=== PATIENT | male | born 1960 | race African-American/Black ===

== ENCOUNTER 2016-12-22 23:32 | Inpatient (IN) | payer MEDICAID ==
[~2016-12-22] VITALS: Ht 165.1 cm; Wt 84.4 kg
[2016-12-22] MEDS ORDERED: Albuterol ud Inhalation ONE (23:55)
[2016-12-22] MEDS ORDERED: Ipratropium 0.02% Inh Soln 2.5ml UD ONE (23:55)
[2016-12-23] VITALS (8 sets, daily range): BP systolic 121–159; BP diastolic 76–94
[2016-12-23] MEDS ORDERED: Ipratropium 0.02% Inh Soln 2.5ml UD HHN ONE
[2016-12-23 00:11] LABS: MEAN CORPUSCULAR HEMOGLOBIN 31.5 PG (27.0-31.0); MEAN CORPUSCULAR HGB CONC 33.7 G/DL (32.0-36.0); MEAN CORPUSCULAR VOLUME 94 FL (80-99); MEAN PLATELET VOLUME 7.1 FL (6.5-10.1); PLATELET COUNT 198 K/UL (150-450); RED BLOOD COUNT 4.53 M/UL (4.70-6.10); RED CELL DISTRIBUTION WIDTH 11.4 % (11.6-14.8); WHITE BLOOD COUNT 19.4 K/UL (4.8-10.8)
[2016-12-23] MEDS: Nitroglycerin Subl 0.4mg tab (Bottle Of 25) SL PRN ×2 (00:11→00:13)
[2016-12-23 00:22] LABS: PROTHROMBIN TIME 10.2 SEC (9.30-11.50)
[2016-12-23 00:27] LABS: TROPONIN I < 0.30 ng/mL (<=0.30)
[2016-12-23 00:28] LABS: ALANINE AMINOTRANSFERASE 28 U/L (3-41); ALBUMIN/GLOBULIN RATIO 1.3 (1.0-2.7); ANION GAP 15 (5-15); ASPARTATE AMINO TRANSFERASE 52 U/L (5-40); CALCIUM 8.6 mg/dL (8.6-10.2); CARBON DIOXIDE 28 mEQ/L (20-30); CHLORIDE 103 mEQ/L (98-107); CREATININE 0.8 mg/dL (0.7-1.2); GLOMERULAR FILTRATION RATE > 60 mL/min (>60); HEMOLYSIS 6; POTASSIUM 3.8 mEQ/L (3.4-4.9); SODIUM 146 mEQ/L (135-145); TOTAL PROTEIN 7.9 g/dL (6.6-8.7)
[2016-12-23 00:38] LABS: CKMB 2.5 ng/mL (< 6.7)
[2016-12-23 00:45] LABS: BAND NEUTROPHILS % (MANUAL) 2 % (0-8); BASOPHILS % (MANUAL) 0 % (0-2); EOSINOPHILS % (MANUAL) 0 % (0-3); LYMPHOCYTES % (MANUAL) 35 % (20-45); NEUTROPHILS % (MANUAL) 63 % (45-75); PLATELET ESTIMATE ADEQUATE; PLATELET MORPHOLOGY NORMAL; TOTAL CELLS COUNTED 100
[2016-12-23 00:49] LABS: BILIRUBIN,DIRECT 0.3 mg/dL (0.1-0.3)
[2016-12-23] MEDS ORDERED: cefTRIAXone 1 GM in NS 55 ML IVPB ONE (01:00)
[2016-12-23] MEDS ORDERED: Solu-MEDROL 125mg Inj IVP ONE (01:00)
[2016-12-23] MEDS ORDERED: Azithromycin 500 MG in NS 275 ML IV ONE (01:00)
[2016-12-23 01:09] LABS: APPEARANCE,URINE CLEAR; KETONES,URINE NEGATIVE (NEGATIVE); LEUKOCYTE ESTERASE ,URINE NEGATIVE (NEGATIVE); NITRITE,URINE NEGATIVE (NEGATIVE); PH,URINE 5 (4.5-8.0); PROTEIN,URINE 3+ (NEGATIVE); UROBILINOGEN,URINE NORMAL MG/DL (0.0-1.0)
[2016-12-23] MEDS ORDERED: Albuterol ud Inhalation HHN ONE ×2 (01:15)
[2016-12-23 01:25] LABS: RBC,URINE 0-2 /HPF (0 - 0); WBC,URINE 0-2 /HPF (0 - 0)
[2016-12-23] MEDS ORDERED: Azithromycin Inj IV ONE (02:20)
--- NOTE | 2016-12-23 03:15 | Emergency Room Report ---
History of Present Illness General Chief Complaint: Dyspnea/Respdistress Source: Patient Present Illness HPI This is a 56-year-old male with a history of hypertension and CHF. He's not on any medication except for his prostate. Patient presents with chief complaint of shortness of breath. Onset tonight. He said he couldn't breathe. Worse with exertion. Worse with lying flat. EMS said that he was hypoxic and they try to put on oxygen. Patient was wheezing also. No fever chills but no nausea no vomiting. Chest tightness however. Denies any alcohol or drug use. Allergies: Coded Allergies: No Known Allergies (Unverified , 12/22/16) Patient History Past Medical History: see triage record, old chart reviewed, HTN, CHF Past Surgical History: other Pertinent Family History: none Social History: Denies: drug use, smoking Immunizations: other Reviewed Nursing Documentation: PMH: Agreed, PSxH: Agreed Nursing Documentation-PMH Past Medical History: No History, Except For Hx Cardiac Problems: Yes Hx Hypertension: Yes Review of Systems Eye: Denies: blurred vision, eye pain ENT: Denies: ear pain, nose congestion, throat swelling Respiratory: Reports: shortness of breath, Denies: cough Cardiovascular: Denies: chest pain, palpitations Gastrointestinal: Denies: abdominal pain, diarrhea, nausea, vomiting Musculoskeletal: Denies: back pain, joint pain Skin: Denies: rash Neurological: Denies: headache, numbness Endocrine: Denies: increased thirst, increased urine Hematologic/Lymphatic: Denies: easy bruising All Other Systems: negative except mentioned in HPI Physical Exam Vital Signs Date Time Temp Pulse Resp B/P Pulse Ox O2 Delivery O2 Flow Rate FiO2 12/22/16 23:32 98.1 93 20 156/90 95 Room Air 12/23/16 00:07 40 vitals with hypertension Sp02 EP Interpretation: reviewed, abnormal General Appearance: well appearing, alert, moderate distress Head: normocephalic, atraumatic Eyes: bilateral eye EOMI, bilateral eye PERRL ENT: hearing grossly normal, normal pharynx Neck: full range of motion, supple, no meningismus Respiratory: chest non-tender, respiratory distress, decreased breath sounds, accessory muscle use, wheezing Cardiovascular #1: regular rate, rhythm, no murmur Gastrointestinal: normal bowel sounds, non tender, no mass, no organomegaly, no bruit, non-distended Musculoskeletal: back normal, normal range of motion, swelling - One plus edema Neurologic: alert, oriented x3 Psychiatric: mood/affect normal Skin: warm/dry Procedures Critical Care Time Critical Care Time Critical care is mandated in this patient who presented with respiratory distress. Patient require my urgent intervention to attenuate the risks of respiratory collapse which may lead to cardiovascular collapse and . Critical care time is 35 minutes excluding any reportable procedure. Critical care time included evaluation, multiple reevaluation, looking at old charts, interpreting laboratory and diagnostic data, discussing case with patient and family and consultants, and charting. Medical Decision Making Diagnostic Impression: Primary Impression: Respiratory distress Additional Impressions: CHF (congestive heart failure) Qualified Codes: I50.9 - Heart failure, unspecified Leukocytosis, unspecified Respiratory failure with hypoxia Qualified Codes: J96.01 - Acute respiratory failure with hypoxia ER Course Patient presents with respiratory distress. Clinically, he has CHF. Chest x- ray showed cardiomegaly with cephalization. His BNP however is normal. He does have a white count. This may be a stress response. I went ahead and gave him antibiotics. No evidence of any drug use. Also the BiPAP and on nasal cannula, his oxygenation is normal but he fell sure but said he can't breathe. He is more comfortable on the BiPAP. So I place him on BiPAP. EKG showed no evidence of acute ST elevation. Troponin negative. Laboratory Tests Test 12/22/16 23:40 12/23/16 00:50 White Blood Count 19.4 K/UL (4.8-10.8) H Red Blood Count 4.53 M/UL (4.70-6.10) L Hemoglobin 14.3 G/DL (14.2-18.0) Hematocrit 42.4 % (42.0-52.0) Mean Corpuscular Volume 94 FL (80-99) Mean Corpuscular Hemoglobin 31.5 PG (27.0-31.0) H Mean Corpuscular Hemoglobin Concent 33.7 G/DL (32.0-36.0) Red Cell Distribution Width 11.4 % (11.6-14.8) L Platelet Count 198 K/UL (150-450) Mean Platelet Volume 7.1 FL (6.5-10.1) Neutrophils (%) (Auto) % (45.0-75.0) Lymphocytes (%) (Auto) % (20.0-45.0) Monocytes (%) (Auto) % (1.0-10.0) Eosinophils (%) (Auto) % (0.0-3.0) Basophils (%) (Auto) % (0.0-2.0) Differential Total Cells Counted 100 Neutrophils % (Manual) 63 % (45-75) Lymphocytes % (Manual) 35 % (20-45) Monocytes % (Manual) 0 % (1-10) L Eosinophils % (Manual) 0 % (0-3) Basophils % (Manual) 0 % (0-2) Band Neutrophils 2 % (0-8) Platelet Estimate Adequate Platelet Morphology Normal Red Blood Cell Morphology Normal Prothrombin Time 10.2 SEC (9.30-11.50) Prothromb Time International Ratio 1.0 (0.9-1.1) Activated Partial Thromboplast Time 25 SEC (23-33) Sodium Level 146 mEQ/L (135-145) H Potassium Level 3.8 mEQ/L (3.4-4.9) Chloride Level 103 mEQ/L (98-107) Carbon Dioxide Level 28 mEQ/L (20-30) Anion Gap 15 (5-15) Blood Urea Nitrogen 10 mg/dL (7-23) Creatinine 0.8 mg/dL (0.7-1.2) Estimat Glomerular Filtration Rate > 60 mL/min (>60) Glucose Level 138 mg/dL (74-106) H Calcium Level 8.6 mg/dL (8.6-10.2) Total Bilirubin 1.8 mg/dL (0.0-1.2) H Direct Bilirubin 0.3 mg/dL (0.1-0.3) Aspartate Amino Transf (AST/SGOT) 52 U/L (5-40) H Alanine Aminotransferase (ALT/SGPT) 28 U/L (3-41) Alkaline Phosphatase 100 U/L (40-129) Total Creatine Kinase 337 U/L (38-174) H Creatine Kinase MB 2.5 ng/mL (< 6.7) Creatine Kinase MB Relative Index 0.7 Troponin I < 0.30 ng/mL (<=0.30) Pro-B-Type Natriuretic Peptide 48 pg/mL (0-125) Total Protein 7.9 g/dL (6.6-8.7) Albumin 4.5 g/dL (3.5-5.2) Globulin 3.4 g/dL Albumin/Globulin Ratio 1.3 (1.0-2.7) Urine Color Pale yellow Urine Appearance Clear Urine pH 5 (4.5-8.0) Urine Specific [place] 1.015 (1.005-1.035) Urine Protein 3+ (NEGATIVE) H Urine Glucose (UA) Negative (NEGATIVE) Urine Ketones Negative (NEGATIVE) Urine Occult Blood 3+ (NEGATIVE) H Urine Nitrite Negative (NEGATIVE) Urine Bilirubin Negative (NEGATIVE) Urine Urobilinogen Normal MG/DL (0.0-1.0) Urine Leukocyte Esterase Negative (NEGATIVE) Urine RBC 0-2 /HPF (0 - 0) H Urine WBC 0-2 /HPF (0 - 0) Urine Squamous Epithelial Cells None /LPF (NONE/OCC) Urine Bacteria None /HPF (NONE) Urine Opiates Screen Negative (NEGATIVE) Urine Barbiturates Screen Negative (NEGATIVE) Phencyclidine (PCP) Screen Negative (NEGATIVE) Urine Amphetamines Screen Negative (NEGATIVE) Urine Benzodiazepines Screen Negative (NEGATIVE) Urine Cocaine Screen Negative (NEGATIVE) Urine Marijuana (THC) Screen Negative (NEGATIVE) Lab Results Impression labs with leukocytosis EKG Diagnostic Results EKG Time: 03:11 Rate: normal Rhythm: NSR ST Segments: no acute changes Rhythm Strip Diag. Results Rhythm Strip Time: 03:11 EP Interpretation: yes Rate: 81 Rhythm: NSR Chest X-Ray Diagnostic Results Chest X-Ray Diagnostic Results : Chest X-Ray Ordered: Yes # of Views/Limited/Complete: 1 View Indication: Shortness of Breath EP Interpretation: Yes Interpretation: no consolidation, no effusion, no pneumothorax, other - CM with cephalazatioin Impression: Other - CM Interpreting ER Provider: Electronically signed by Gucci Mackey Last Vital Signs Date Time Temp Pulse Resp B/P Pulse Ox O2 Delivery O2 Flow Rate FiO2 12/23/16 02:41 100 15 98 Facial 40 12/23/16 02:00 140/94 12/22/16 23:32 98.1 Status: improved Disposition: ADMITTED INPATIENT Condition: Serious Referrals: NOT CHOSEN IPA/,REFERRING (PCP) GUCCI MACKEY M.D. Dec 23, 2016 03:15
[2016-12-23] MEDS: Morphine Sulfate 2mg/ml Inj IVP PRN ×2 (06:03→15:59)
[2016-12-23 06:29] LABS: MEAN CORPUSCULAR HEMOGLOBIN 31.7 PG (27.0-31.0); MEAN CORPUSCULAR HGB CONC 33.6 G/DL (32.0-36.0); MEAN CORPUSCULAR VOLUME 94 FL (80-99); MEAN PLATELET VOLUME 7.3 FL (6.5-10.1); PLATELET COUNT 203 K/UL (150-450); RED BLOOD COUNT 4.51 M/UL (4.70-6.10); RED CELL DISTRIBUTION WIDTH 11.9 % (11.6-14.8)
[2016-12-23 06:39] LABS: WHITE BLOOD COUNT 24.5 K/UL (4.8-10.8)
[2016-12-23 07:14] LABS: TROPONIN I < 0.30 ng/mL (<=0.30)
[2016-12-23 07:42] LABS: BAND NEUTROPHILS % (MANUAL) 0 % (0-8); BASOPHILS % (MANUAL) 0 % (0-2); EOSINOPHILS % (MANUAL) 0 % (0-3); LYMPHOCYTES % (MANUAL) 3 % (20-45); NEUTROPHILS % (MANUAL) 96 % (45-75); PLATELET ESTIMATE ADEQUATE; PLATELET MORPHOLOGY NORMAL; TOTAL CELLS COUNTED 100
[2016-12-23] MEDS: LORazepam Inj 2mg/ml 1ml IV PRN (08:41)
[2016-12-23] MEDS: Heparin 5000 units/ml inj SUBQ SCH ×2 (08:43→20:33)
--- NOTE | 2016-12-23 09:26 | Diagnostic Imaging Report ---
Indication: Shortness of breath Technique: Single portable AP view of the chest. Findings: Comparison: None. Left paratracheal soft tissues prominent, with mild rightward tracheal deviation. The bones and extra pulmonary soft tissues, cardiomediastinal silhouette, pulmonary vasculature and parenchyma, and pleural surfaces are unremarkable. IMPRESSION: No evidence of acute cardiopulmonary disease Left paratracheal soft tissue prominence may simply represent ectatic vasculature or prominent mediastinal fat due to body habitus. Pathology not excludable. Consider contrast-enhanced CT scan for further evaluation.
--- NOTE | 2016-12-23 11:06 | History & Physical ---
History and Physical History & Physicial pt seen and examined, full H+P to follow 56 y/o AA man admitted for CHF/COPD exacerbation with leukocytosis and etoh intoxication/withdrawal IV abx, duonebs, prednisone, advairt and lasix ordered, to be seen by Pulmonary , Cardiology today Also placed on IV ativan for etoh withdrawal symptoms MANUELITO BIRMINGHAM Dec 23, 2016 11:06
[2016-12-23] MEDS: PredniSONE 20mg tab ORAL SCH (11:16)
[2016-12-23] MEDS: Thiamine 100mg tab ORAL SCH (11:16)
[2016-12-23] MEDS: Advair 250/50 Inhaler - 14 dose INH SCH ×2 (12:30→19:02)
[2016-12-23] MEDS: DuoNeb 0.5-3(2.5)mg/3ml neb HHN SCH ×2 (12:46→19:02)
[2016-12-23 14:08] LABS: TROPONIN I < 0.30 ng/mL (<=0.30)
--- NOTE | 2016-12-23 17:10 | Consultation ---
Consult Note Assessment/Plan dict Asthma exac alcoholism chest pain agree with orders will follow thanks, RODOLFO DURBIN Dec 23, 2016 17:10
--- NOTE | 2016-12-23 19:13 | Cardiac Electrophysiology PN ---
Subjective Subjective [id number] Objective Last 24 Hour Vital Signs Date Time Temp Pulse Resp B/P Pulse Ox O2 Delivery O2 Flow Rate FiO2 12/23/16 19:04 68 18 100 Nasal Cannula 2.0 12/23/16 19:01 Nasal Cannula 2.0 28 12/23/16 19:01 100 Nasal Cannula 2.0 12/23/16 16:00 95 12/23/16 16:00 98.0 90 22 154/86 96 Nasal Cannula 3.0 12/23/16 12:46 32 12/23/16 12:46 95 20 100 Bi-pap 40 12/23/16 12:00 97.9 91 22 156/94 96 Nasal Cannula 3.0 12/23/16 11:46 117 12/23/16 08:00 97.3 96 20 155/92 97 Nasal Cannula 3.0 12/23/16 07:37 89 12/23/16 06:58 Nasal Cannula 3.0 32 12/23/16 06:58 97 Nasal Cannula 3.0 32 12/23/16 04:37 89 18 98 Facial 40 12/23/16 04:27 98.4 99 18 144/91 97 Nasal Cannula 3.0 12/23/16 04:10 92 12/23/16 04:10 40 12/23/16 03:39 98.1 94 17 135/76 98 Nasal Cannula 3.0 40 12/23/16 03:36 94 17 135/76 98 Nasal Cannula 3.0 12/23/16 02:41 100 15 98 Facial 40 12/23/16 02:37 104 18 Bi-pap 40 12/23/16 02:00 113 21 140/94 98 Bi-pap 40 12/23/16 01:16 104 18 99 Bi-pap 40 12/23/16 01:16 40 12/23/16 00:33 115 16 99 Facial 40 12/23/16 00:32 114 16 100 Bi-pap 40 12/23/16 00:30 116 18 121/94 95 Bi-pap 40 12/23/16 00:13 147/100 12/23/16 00:11 105 18 99 Bi-pap 40 12/23/16 00:11 185/90 12/23/16 00:09 105 18 Bi-pap 40 12/23/16 00:07 105 18 99 Facial 40 12/22/16 23:32 98.1 93 20 156/90 95 Room Air Intake and Output 12/22/16 12/23/16 19:00 07:00 Intake Total 300 ml Output Total 900 ml Balance -600 ml Intake Oral 300 ml Output Urine Total 900 ml Laboratory Tests Test 12/22/16 23:40 12/23/16 00:50 12/23/16 06:19 12/23/16 13:30 White Blood Count 19.4 K/UL (4.8-10.8) H 24.5 K/UL (4.8-10.8) *H Red Blood Count 4.53 M/UL (4.70-6.10) L 4.51 M/UL (4.70-6.10) L Hemoglobin 14.3 G/DL (14.2-18.0) 14.3 G/DL (14.2-18.0) Hematocrit 42.4 % (42.0-52.0) 42.5 % (42.0-52.0) Mean Corpuscular Volume 94 FL (80-99) 94 FL (80-99) Mean Corpuscular Hemoglobin 31.5 PG (27.0-31.0) H 31.7 PG (27.0-31.0) H Mean Corpuscular Hemoglobin Concent 33.7 G/DL (32.0-36.0) 33.6 G/DL (32.0-36.0) Red Cell Distribution Width 11.4 % (11.6-14.8) L 11.9 % (11.6-14.8) Platelet Count 198 K/UL (150-450) 203 K/UL (150-450) Mean Platelet Volume 7.1 FL (6.5-10.1) 7.3 FL (6.5-10.1) Neutrophils (%) (Auto) % (45.0-75.0) % (45.0-75.0) Lymphocytes (%) (Auto) % (20.0-45.0) % (20.0-45.0) Monocytes (%) (Auto) % (1.0-10.0) % (1.0-10.0) Eosinophils (%) (Auto) % (0.0-3.0) % (0.0-3.0) Basophils (%) (Auto) % (0.0-2.0) % (0.0-2.0) Differential Total Cells Counted 100 100 Neutrophils % (Manual) 63 % (45-75) 96 % (45-75) H Lymphocytes % (Manual) 35 % (20-45) 3 % (20-45) L Monocytes % (Manual) 0 % (1-10) L 1 % (1-10) Eosinophils % (Manual) 0 % (0-3) 0 % (0-3) Basophils % (Manual) 0 % (0-2) 0 % (0-2) Band Neutrophils 2 % (0-8) 0 % (0-8) Platelet Estimate Adequate Adequate Platelet Morphology Normal Normal Red Blood Cell Morphology Normal Normal Prothrombin Time 10.2 SEC (9.30-11.50) Prothromb Time International Ratio 1.0 (0.9-1.1) Activated Partial Thromboplast Time 25 SEC (23-33) Sodium Level 146 mEQ/L (135-145) H Potassium Level 3.8 mEQ/L (3.4-4.9) Chloride Level 103 mEQ/L (98-107) Carbon Dioxide Level 28 mEQ/L (20-30) Anion Gap 15 (5-15) Blood Urea Nitrogen 10 mg/dL (7-23) Creatinine 0.8 mg/dL (0.7-1.2) Estimat Glomerular Filtration Rate > 60 mL/min (>60) Glucose Level 138 mg/dL (74-106) H Calcium Level 8.6 mg/dL (8.6-10.2) Total Bilirubin 1.8 mg/dL (0.0-1.2) H Direct Bilirubin 0.3 mg/dL (0.1-0.3) Aspartate Amino Transf (AST/SGOT) 52 U/L (5-40) H Alanine Aminotransferase (ALT/SGPT) 28 U/L (3-41) Alkaline Phosphatase 100 U/L (40-129) Total Creatine Kinase 337 U/L (38-174) H Creatine Kinase MB 2.5 ng/mL (< 6.7) Creatine Kinase MB Relative Index 0.7 Troponin I < 0.30 ng/mL (<=0.30) < 0.30 ng/mL (<=0.30) < 0.30 ng/mL (<=0.30) Pro-B-Type Natriuretic Peptide 48 pg/mL (0-125) 81 pg/mL (0-125) Total Protein 7.9 g/dL (6.6-8.7) Albumin 4.5 g/dL (3.5-5.2) Globulin 3.4 g/dL Albumin/Globulin Ratio 1.3 (1.0-2.7) Urine Color Pale yellow Urine Appearance Clear Urine pH 5 (4.5-8.0) Urine Specific [place] 1.015 (1.005-1.035) Urine Protein 3+ (NEGATIVE) H Urine Glucose (UA) Negative (NEGATIVE) Urine Ketones Negative (NEGATIVE) Urine Occult Blood 3+ (NEGATIVE) H Urine Nitrite Negative (NEGATIVE) Urine Bilirubin Negative (NEGATIVE) Urine Urobilinogen Normal MG/DL (0.0-1.0) Urine Leukocyte Esterase Negative (NEGATIVE) Urine RBC 0-2 /HPF (0 - 0) H Urine WBC 0-2 /HPF (0 - 0) Urine Squamous Epithelial Cells None /LPF (NONE/OCC) Urine Bacteria None /HPF (NONE) Urine Opiates Screen Negative (NEGATIVE) Urine Barbiturates Screen Negative (NEGATIVE) Phencyclidine (PCP) Screen Negative (NEGATIVE) Urine Amphetamines Screen Negative (NEGATIVE) Urine Benzodiazepines Screen Negative (NEGATIVE) Urine Cocaine Screen Negative (NEGATIVE) Urine Marijuana (THC) Screen Negative (NEGATIVE) Serum Alcohol 141 mg/dL CHARLEE MARION Dec 23, 2016 19:13
--- NOTE | 2016-12-23 19:39 | History and Physical ---
Alayna Bynum N.P. 12/23/16 1939: History of Present Illness General Date patient seen: Dec 23, 2016 Time patient seen: 19:19 Reason for Hospitalization: Dyspnea/Respdistress, CHF exacerbation Present Illness HPI This is a 56-year-old male with PMH of HTN, CHF, and asthma who presented to the ER for increasing SOB x 1 day. He states that he is not on any medications except for BPH. Reports LENNON, orthopnea. Also c/o chest pain and chest tightness. EKG showed no acute ST elevation and troponins were negative. Patient was given IV lasix, and responded well. Patient was also placed on O2 via NC and states his SOB improved. Also reports productive cough. Denies fevers /chills. Reports nausea, vomiting and diarrhea for 1 week. Denies hematechezia, melena. Emesis is nonbloody, nonbilious. Denies taking any antibiotics recently. He also reports ingesting alcohol yesterday and states that he drinks 1-2x/week. Denies tobacco use or any other drug use. Reports tremors. Blood alcohol level was 141. Allergies: Coded Allergies: No Known Allergies (Unverified , 12/22/16) Patient History History Provided By: Patient Healthcare decision maker Resuscitation status Full Code Advanced Directive on File Past Medical/Surgical History Past Medical/Surgical History: (1) HTN (hypertension) (2) CHF (congestive heart failure) Review of Systems Respiratory: Reports: LENNON, cough, orthopnea, shortness of breath, sputum Cardiovascular: Reports: chest pain Gastrointestinal: Reports: abdominal pain, diarrhea, nausea, vomiting Physical Exam General Appearance: alert, mild distress HEENT: normocephalic, atraumatic, PERRL Neck: non-tender, supple, normal inspection Respiratory/Chest: lungs clear, normal breath sounds Cardiovascular/Chest: normal rate, regular rhythm, no JVD Abdomen: normal bowel sounds, non tender, soft Extremities: normal range of motion, non-tender, no edema Skin Exam: warm/dry 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, no motor/sensory deficits, alert, oriented x 3 Last 24 Hour Vital Signs Date Time Temp Pulse Resp B/P Pulse Ox O2 Delivery O2 Flow Rate FiO2 12/23/16 19:12 73 18 100 Nasal Cannula 2.0 28 12/23/16 19:04 68 18 100 Nasal Cannula 2.0 28 12/23/16 19:01 Nasal Cannula 2.0 28 12/23/16 19:01 100 Nasal Cannula 2.0 28 12/23/16 16:00 95 12/23/16 16:00 98.0 90 22 154/86 96 Nasal Cannula 3.0 12/23/16 12:46 32 12/23/16 12:46 95 20 100 Bi-pap 40 12/23/16 12:00 97.9 91 22 156/94 96 Nasal Cannula 3.0 12/23/16 11:46 117 12/23/16 08:00 97.3 96 20 155/92 97 Nasal Cannula 3.0 12/23/16 07:37 89 12/23/16 06:58 Nasal Cannula 3.0 32 12/23/16 06:58 97 Nasal Cannula 3.0 32 12/23/16 04:37 89 18 98 Facial 40 12/23/16 04:27 98.4 99 18 144/91 97 Nasal Cannula 3.0 12/23/16 04:10 92 12/23/16 04:10 40 12/23/16 03:39 98.1 94 17 135/76 98 Nasal Cannula 3.0 40 12/23/16 03:36 94 17 135/76 98 Nasal Cannula 3.0 12/23/16 02:41 100 15 98 Facial 40 12/23/16 02:37 104 18 Bi-pap 40 12/23/16 02:00 113 21 140/94 98 Bi-pap 40 12/23/16 01:16 104 18 99 Bi-pap 40 12/23/16 01:16 40 12/23/16 00:33 115 16 99 Facial 40 12/23/16 00:32 114 16 100 Bi-pap 40 12/23/16 00:30 116 18 121/94 95 Bi-pap 40 12/23/16 00:13 147/100 12/23/16 00:11 105 18 99 Bi-pap 40 12/23/16 00:11 185/90 12/23/16 00:09 105 18 Bi-pap 40 12/23/16 00:07 105 18 99 Facial 40 12/22/16 23:32 98.1 93 20 156/90 95 Room Air Intake and Output 12/22/16 12/23/16 19:00 07:00 Intake Total 300 ml Output Total 900 ml Balance -600 ml Intake Oral 300 ml Output Urine Total 900 ml Laboratory Tests Test 12/22/16 23:40 12/23/16 00:50 12/23/16 06:19 12/23/16 13:30 White Blood Count 19.4 K/UL (4.8-10.8) H 24.5 K/UL (4.8-10.8) *H Red Blood Count 4.53 M/UL (4.70-6.10) L 4.51 M/UL (4.70-6.10) L Hemoglobin 14.3 G/DL (14.2-18.0) 14.3 G/DL (14.2-18.0) Hematocrit 42.4 % (42.0-52.0) 42.5 % (42.0-52.0) Mean Corpuscular Volume 94 FL (80-99) 94 FL (80-99) Mean Corpuscular Hemoglobin 31.5 PG (27.0-31.0) H 31.7 PG (27.0-31.0) H Mean Corpuscular Hemoglobin Concent 33.7 G/DL (32.0-36.0) 33.6 G/DL (32.0-36.0) Red Cell Distribution Width 11.4 % (11.6-14.8) L 11.9 % (11.6-14.8) Platelet Count 198 K/UL (150-450) 203 K/UL (150-450) Mean Platelet Volume 7.1 FL (6.5-10.1) 7.3 FL (6.5-10.1) Neutrophils (%) (Auto) % (45.0-75.0) % (45.0-75.0) Lymphocytes (%) (Auto) % (20.0-45.0) % (20.0-45.0) Monocytes (%) (Auto) % (1.0-10.0) % (1.0-10.0) Eosinophils (%) (Auto) % (0.0-3.0) % (0.0-3.0) Basophils (%) (Auto) % (0.0-2.0) % (0.0-2.0) Differential Total Cells Counted 100 100 Neutrophils % (Manual) 63 % (45-75) 96 % (45-75) H Lymphocytes % (Manual) 35 % (20-45) 3 % (20-45) L Monocytes % (Manual) 0 % (1-10) L 1 % (1-10) Eosinophils % (Manual) 0 % (0-3) 0 % (0-3) Basophils % (Manual) 0 % (0-2) 0 % (0-2) Band Neutrophils 2 % (0-8) 0 % (0-8) Platelet Estimate Adequate Adequate Platelet Morphology Normal Normal Red Blood Cell Morphology Normal Normal Prothrombin Time 10.2 SEC (9.30-11.50) Prothromb Time International Ratio 1.0 (0.9-1.1) Activated Partial Thromboplast Time 25 SEC (23-33) Sodium Level 146 mEQ/L (135-145) H Potassium Level 3.8 mEQ/L (3.4-4.9) Chloride Level 103 mEQ/L (98-107) Carbon Dioxide Level 28 mEQ/L (20-30) Anion Gap 15 (5-15) Blood Urea Nitrogen 10 mg/dL (7-23) Creatinine 0.8 mg/dL (0.7-1.2) Estimat Glomerular Filtration Rate > 60 mL/min (>60) Glucose Level 138 mg/dL (74-106) H Calcium Level 8.6 mg/dL (8.6-10.2) Total Bilirubin 1.8 mg/dL (0.0-1.2) H Direct Bilirubin 0.3 mg/dL (0.1-0.3) Aspartate Amino Transf (AST/SGOT) 52 U/L (5-40) H Alanine Aminotransferase (ALT/SGPT) 28 U/L (3-41) Alkaline Phosphatase 100 U/L (40-129) Total Creatine Kinase 337 U/L (38-174) H Creatine Kinase MB 2.5 ng/mL (< 6.7) Creatine Kinase MB Relative Index 0.7 Troponin I < 0.30 ng/mL (<=0.30) < 0.30 ng/mL (<=0.30) < 0.30 ng/mL (<=0.30) Pro-B-Type Natriuretic Peptide 48 pg/mL (0-125) 81 pg/mL (0-125) Total Protein 7.9 g/dL (6.6-8.7) Albumin 4.5 g/dL (3.5-5.2) Globulin 3.4 g/dL Albumin/Globulin Ratio 1.3 (1.0-2.7) Urine Color Pale yellow Urine Appearance Clear Urine pH 5 (4.5-8.0) Urine Specific [place] 1.015 (1.005-1.035) Urine Protein 3+ (NEGATIVE) H Urine Glucose (UA) Negative (NEGATIVE) Urine Ketones Negative (NEGATIVE) Urine Occult Blood 3+ (NEGATIVE) H Urine Nitrite Negative (NEGATIVE) Urine Bilirubin Negative (NEGATIVE) Urine Urobilinogen Normal MG/DL (0.0-1.0) Urine Leukocyte Esterase Negative (NEGATIVE) Urine RBC 0-2 /HPF (0 - 0) H Urine WBC 0-2 /HPF (0 - 0) Urine Squamous Epithelial Cells None /LPF (NONE/OCC) Urine Bacteria None /HPF (NONE) Urine Opiates Screen Negative (NEGATIVE) Urine Barbiturates Screen Negative (NEGATIVE) Phencyclidine (PCP) Screen Negative (NEGATIVE) Urine Amphetamines Screen Negative (NEGATIVE) Urine Benzodiazepines Screen Negative (NEGATIVE) Urine Cocaine Screen Negative (NEGATIVE) Urine Marijuana (THC) Screen Negative (NEGATIVE) Serum Alcohol 141 mg/dL Height (Feet): 5 Height (Inches): 5.00 Weight (Pounds): 186 Medications Current Medications Medications (Trade) Dose Ordered Sig/Joaquin Route PRN Reason Start Time Stop Time Status Last Admin Dose Admin Albuterol/ Ipratropium (DuoNeb 0.5-3(2.5)mg/3ml) 3 ml Q6HRT HHN 12/23/16 11:00 12/28/16 10:59 12/23/16 19:02 Azithromycin 500 mg/Sodium Chloride 275 ml @ 275 mls/hr Q24HRS IV 12/24/16 03:00 12/31/16 02:59 Ceftriaxone Sodium/Dextrose (Rocephin/D5W) 55 ml @ 110 mls/hr Q24H IVPB 12/24/16 02:00 12/31/16 01:59 Clonidine HCl (Catapres) 0.1 mg Q4H PRN ORAL For High Blood Pressure 12/23/16 19:15 01/22/17 19:14 UNV Folic Acid (Folate) 1 mg DAILY ORAL 12/23/16 11:00 01/22/17 10:59 12/23/16 11:16 Furosemide (Lasix) 20 mg EVERY 12 HOURS IV 12/23/16 11:00 01/22/17 10:59 12/23/16 11:16 Heparin Sodium (Porcine) 5000 units 5,000 units EVERY 12 HOURS SUBQ 12/23/16 09:00 01/22/17 08:59 12/23/16 08:43 Lisinopril (Zestril) 10 mg DAILY ORAL 12/24/16 09:00 01/23/17 08:59 Lorazepam (Ativan 2mg/ml 1ml) 1 mg Q3H PRN IV For Anxiety 12/23/16 08:45 12/30/16 08:44 12/23/16 08:41 Morphine Sulfate (Morphine Sulfate) 2 mg Q4H PRN IVP For Pain 12/23/16 05:45 12/30/16 05:44 12/23/16 15:59 Ondansetron HCl (Zofran) 4 mg Q4H PRN IVP Nausea & Vomiting 12/23/16 07:45 01/22/17 07:44 12/23/16 12:50 Prednisone (predniSONE) 40 mg DAILY ORAL 12/23/16 11:00 01/22/17 10:59 12/23/16 11:16 Salmeterol Xinafoate/ Fluticasone (Advair 250/50 Diskus) 1 puffs BID INH 12/23/16 12:30 01/22/17 12:29 12/23/16 19:02 Thiamine HCl (Vitamin B1) 100 mg DAILY ORAL 12/23/16 11:00 01/22/17 10:59 12/23/16 11:16 Assessment/Plan Status: progressing Status Narrative 56 y/o male with a PMH of HTN, CHF, and asthma presenting with increasing SOB. Also c/o n/v, abdominal pain and has leukocytosis. Started on IV abx, lasix, and respiratory treatment. Assessment/Plan #Acute on chronic CHF exacerbation / COPD exacerbation - Admit to tele/med-surg - CXR showing cardiomegaly - EKG no ST elevation. Troponins negative - IV lasix 20mg BID - duonebs - advair - prednisone 40mg daily - cardiology consulted, Dr. Campbell - Pulmonology consulted, Dr. Braden #Leukocytosis, unknown source - WBC 19 --> 24 - afebrile - IV azithromycin and IV ceftriaxone - blood cx x 2 - ID consulted, Dr. Gee #Nausea, vomiting, diarrhea, abdominal pain x 1 week - stool cultures - c. diff panel - CT a/p with contrast. sCr wnl #ETOH withdrawal - IV ativan prn - thiamine and folate daily - discussed cessation - AST and total bili elevated likely 2/2 acute alcohol intoxication. Synthetic liver function intact (INR 1.0). - trend hepatic function #DVT ppx, high - heparin 5,000 units BID MANUELITO [place] 12/24/16 1424: History of Present Illness General Reason for Hospitalization: Dyspnea/Respdistress, CHF exacerbation Present Illness Allergies: Coded Allergies: No Known Allergies (Unverified , 12/22/16) Assessment/Plan Assessment/Plan I saw and examined the patient, reviewed the case in detail, reviewed radiology and EKG if applicable, in addition reviewing the laboratory data and microbiology. I agree with the history, physical examination findings, assessment and plan of care as outlined above by the Nurse Practitioner with any additions or modifications noted. Alayna Bynum N.P. Dec 23, 2016 19:39 MANUELITO [place] Dec 24, 2016 14:24
--- NOTE | 2016-12-23 21:15 | Consultation ---
DATE OF CONSULTATION: 12/23/2016 PULMONARY CONSULTATION HISTORY OF PRESENT ILLNESS: The patient is a 56-year-old man, who came to the emergency department because of respiratory distress, brought in by paramedics. He was found to have low oxygen levels and was wheezing. He was given breathing treatments and thought to have heart failure. Diuretics were given and admission was arranged. He was given steroids as well. Since admission, he is feeling much better. The patient reports he has a history of asthma since childhood. He uses an inhaler. He has no history of heart problems to his knowledge, but he has been told that his heart is enlarged. PAST MEDICAL HISTORY: Possible asthma since childhood, nonsmoker, possible hypertension, prostate enlargement, possible cardiomegaly, and appendectomy. SOCIAL HISTORY: He drinks heavily and had an elevated blood alcohol on admission. He states that he drank over a fifth of vodka on the night of admission. He denies drug use. REVIEW OF SYSTEMS: Otherwise unremarkable. PHYSICAL EXAMINATION: GENERAL: The patient is alert and responds appropriately. His blood pressure is elevated. He is overweight. He is not in distress. He is on nasal oxygen. HEENT: The head is normocephalic. NECK: No jugular venous distention. CHEST: Clear with good air entry. CARDIAC: Rhythm is regular without murmur or gallop. ABDOMEN: Soft and nontender. Liver and spleen are not enlarged. EXTREMITIES: No clubbing, cyanosis, or edema. IMAGING: Chest x-ray is reported as normal. I reviewed and it looks like the heart is enlarged. LABORATORY DATA: Laboratory studies show white blood count is elevated. Chemistry shows the blood sugar 138. Bilirubin 1.8. Liver enzymes are mildly elevated. CK is 337. Troponin is negative. Natriuretic peptide is normal. Toxicology is negative except for alcohol with a blood level of 141. Urinalysis shows occult blood and protein with no red cells. IMPRESSION: 1. Status asthmaticus. 2. Hypertension. 3. Cardiomegaly. 4. Alcoholism. 5. Elevated liver enzymes. 6. Mild rhabdomyolysis. 7. Elevated blood sugar. PLAN: The patient is on appropriate bronchodilator therapy, antibiotics, and steroids. I will be happy to follow him in the hospital with you. Elijah Braden M.D. DR: ARTURO JOB#: [id number] CC:
--- NOTE | 2016-12-23 23:28 | Wound Care Consultation ---
Wound Assessment Wound Assessment : Wound Number: #1 Wound Present on Admission: Yes New Wound: No Status Change of Wound: No Wound Location Body Site Modif: left, lower, anterior Wound Location Body Site: leg Wound Type: traumatic injury Henna Test: Does not Henna Traumatic Injury Wounds: Skin Tear Wound Thickness: Partial Thickness Wound Length: 0.8 Wound Width: 1.0 Wound Depth: 0.1 Percent of Wound Sunburst/Red: 100 Wound Drainage Description: Serosanguineous Wound Drainage Amount: Scant Wound Drainage Odor: None/Absent Tissue Surrounding Wound: Intact Wound General Appearance: Reddened Wound Comment #1 Left anterior lower leg skin tear Recommendation -Left anterior lower leg skin tear Cleanse with saline, pat dry, apply Adaptic, cover with bordered gauze daily and PRN soiled/dislodged -Keep clean and dry -Optimize nutrition -Assess and f/u accordingly for any changes ASHOK PLASCENCIA RN Dec 23, 2016 23:28
[2016-12-24 00:14] VITALS: BP 154/83
[2016-12-24] MEDS: LORazepam Inj 2mg/ml 1ml IV PRN (00:42)
--- NOTE | 2016-12-24 00:45 | Consultation ---
DATE OF CONSULTATION: 12/23/2016 CARDIOLOGY CONSULTATION CONSULTING PHYSICIAN: Daniel Burton M.D. REFERRING PHYSICIAN: Eugenio Diane M.D. REASON FOR CONSULTATION: Accelerated hypertension and congestive heart failure. HISTORY OF PRESENT ILLNESS: The patient is a 56-year-old gentleman with history of hypertension, COPD, and alcohol use, came to the emergency room for shortness of breath and was admitted for leukocytosis and alcohol intoxication and COPD and CHF exacerbation. The patient is on no medication except for his prostate. The patient has came because of primarily liquid that was worse with exertion. The patient was hypoxic with an oxygen on and is also wheezing. PAST MEDICAL HISTORY: Hypertension and congestive heart failure. SOCIAL HISTORY: To continue drink heavily and lives at home. FAMILY HISTORY: Noncontributory. REVIEW OF SYSTEMS: Review of systems was performed and was negative other than what was mentioned in history of present illness. PHYSICAL EXAMINATION: VITAL SIGNS: Blood pressure is 154/86, pulse 95, and respirations 20. HEAD AND NECK: Shows no JVD. LUNGS: Decreased breath sounds. CARDIOVASCULAR: Shows regular S1 and S2 with no gallop. ABDOMEN: Soft. EXTREMITIES: There is 1+ pitting edema. LABORATORY DATA: WBC of 24.5, hemoglobin 14, hematocrit 42, and platelet count was 203,000. Sodium is 143, potassium 3.8, BUN of 10, creatinine 0.8, and glucose of 130. Troponin is negative x3. His BNP is 481. His serum alcohol was 141. ASSESSMENT AND PLAN: 1. Accelerated hypertension. We will start him on lisinopril 10 mg twice a day. The patient also received IV Lasix. We will get an echocardiogram for ejection fraction and wall motion abnormality. 2. Congestive heart failure. Again BNP is not very high, however, clinically is suspicious for congestive heart failure. Again, we will get an echocardiogram for further evaluation. 3. History of heavy alcohol use. 4. White count of sepsis. Azithromycin and ceftriaxone for possible pneumonia. Thank you very much, Dr. Diane, for allowing me to participate in the care of this patient. Please do not hesitate to contact me for any questions regarding my evaluation. Daniel Hutton M.D. DR: ENEDINA JOB#: [id number] CC:
[2016-12-24] MEDS: DuoNeb 0.5-3(2.5)mg/3ml neb HHN SCH ×4 (01:07→18:52)
[2016-12-24] MEDS ORDERED: cefTRIAXone 1 GM in D5W 55 ML IVPB SCH (02:00)
[2016-12-24] MEDS ORDERED: Azithromycin 500 MG in NS 275 ML IV SCH (03:00)
[2016-12-24 03:08] VITALS: BP 147/84
[2016-12-24 05:18] LABS: MEAN CORPUSCULAR HEMOGLOBIN 31.8 PG (27.0-31.0); MEAN CORPUSCULAR HGB CONC 33.9 G/DL (32.0-36.0); MEAN CORPUSCULAR VOLUME 94 FL (80-99); PLATELET COUNT 179 K/UL (150-450); RED CELL DISTRIBUTION WIDTH 11.6 % (11.6-14.8); WHITE BLOOD COUNT 21.9 K/UL (4.8-10.8)
[2016-12-24 05:39] LABS: ALANINE AMINOTRANSFERASE 24 U/L (3-41); ALBUMIN/GLOBULIN RATIO 1.2 (1.0-2.7); ANION GAP 11 (5-15); ASPARTATE AMINO TRANSFERASE 37 U/L (5-40); CALCIUM 9.3 mg/dL (8.6-10.2); CARBON DIOXIDE 32 mEQ/L (20-30); CHLORIDE 95 mEQ/L (98-107); CREATININE 0.8 mg/dL (0.7-1.2); GLOMERULAR FILTRATION RATE > 60 mL/min (>60); HEMOLYSIS 6; POTASSIUM 3.1 mEQ/L (3.4-4.9); SODIUM 138 mEQ/L (135-145); TOTAL PROTEIN 7.7 g/dL (6.6-8.7)
[2016-12-24 05:53] LABS: THYROID STIMULATING HORMONE 0.676 uIU/mL (0.300-4.500)
[2016-12-24 06:48] LABS: BILIRUBIN,DIRECT 0.3 mg/dL (0.1-0.3)
[2016-12-24 08:00] VITALS: BP 130/66
[2016-12-24 08:08] LABS: BAND NEUTROPHILS % (MANUAL) 0 % (0-8); BASOPHILS % (MANUAL) 0 % (0-2); EOSINOPHILS % (MANUAL) 0 % (0-3); LYMPHOCYTES % (MANUAL) 18 % (20-45); NEUTROPHILS % (MANUAL) 80 % (45-75); PLATELET ESTIMATE ADEQUATE; PLATELET MORPHOLOGY NORMAL; TOTAL CELLS COUNTED 100
[2016-12-24] MEDS: PredniSONE 20mg tab ORAL SCH (08:47)
[2016-12-24] MEDS: Thiamine 100mg tab ORAL SCH (08:47)
[2016-12-24] MEDS: Lisinopril 10mg tab ORAL SCH (08:48)
[2016-12-24] MEDS: Heparin 5000 units/ml inj SUBQ SCH ×2 (08:49→20:19)
--- NOTE | 2016-12-24 08:51 | Pulmonology Progress Note ---
Assessment/Plan Assessment/Plan 1. Status asthmaticus. 2. Hypertension. 3. Cardiomegaly. 4. Alcoholism. 5. Elevated liver enzymes. 6. Mild rhabdomyolysis. 7. Elevated blood sugar. Improved, not SOB no wheezing can taper steroids Subjective Constitutional: Denies: fever Respiratory: Denies: dry cough, shortness of breath, sputum Allergies: Coded Allergies: No Known Allergies (Unverified , 12/22/16) Objective Last 24 Hour Vital Signs Date Time Temp Pulse Resp B/P Pulse Ox O2 Delivery O2 Flow Rate FiO2 12/24/16 08:48 130/66 12/24/16 08:00 97.9 57 18 130/66 98 Nasal Cannula 3.0 12/24/16 06:50 Nasal Cannula 2.0 12/24/16 06:50 61 16 100 Nasal Cannula 2.0 12/24/16 06:50 98 Nasal Cannula 2.0 12/24/16 06:45 60 16 100 Nasal Cannula 2.0 12/24/16 04:00 75 12/24/16 03:08 97.5 64 20 147/84 100 Nasal Cannula 3.0 12/24/16 01:17 71 16 100 Nasal Cannula 2.0 12/24/16 01:07 71 16 100 Nasal Cannula 2.0 12/24/16 00:14 97.7 64 20 154/83 100 Nasal Cannula 3.0 12/23/16 23:55 57 12/23/16 20:00 97.3 73 20 159/88 100 Nasal Cannula 3.0 12/23/16 20:00 72 12/23/16 19:12 73 18 100 Nasal Cannula 2.0 12/23/16 19:04 68 18 100 Nasal Cannula 2.0 12/23/16 19:01 Nasal Cannula 2.0 12/23/16 19:01 100 Nasal Cannula 2.0 12/23/16 16:00 95 12/23/16 16:00 98.0 90 22 154/86 96 Nasal Cannula 3.0 12/23/16 12:46 32 12/23/16 12:46 95 20 100 Bi-pap 40 12/23/16 12:00 97.9 91 22 156/94 96 Nasal Cannula 3.0 12/23/16 11:46 117 Intake and Output 12/23/16 12/24/16 19:00 07:00 Intake Total 1250 ml 530 ml Output Total 925 ml Balance 325 ml 530 ml Intake Oral 1250 ml 200 ml IV Total 330 ml Output Urine Total 925 ml # Bowel Movements 4 4 General Appearance: no acute distress Respiratory/Chest: lungs clear Cardiovascular: normal rate Laboratory Tests 12/23/16 13:30: Troponin I < 0.30 12/24/16 03:30: White Blood Count 21.9H, Red Blood Count 4.30L, Hemoglobin 13.7L, Hematocrit 40.3L, Mean Corpuscular Volume 94, Mean Corpuscular Hemoglobin 31.8H, Mean Corpuscular Hemoglobin Concent 33.9, Red Cell Distribution Width 11.6, Platelet Count 179, Mean Platelet Volume 8.0, Neutrophils (%) (Auto) , Lymphocytes (%) ( Auto) , Monocytes (%) (Auto) , Eosinophils (%) (Auto) , Basophils (%) (Auto) , Differential Total Cells Counted 100, Neutrophils % (Manual) 80H, Lymphocytes % (Manual) 18L, Monocytes % (Manual) 2, Eosinophils % (Manual) 0, Basophils % ( Manual) 0, Band Neutrophils 0, Platelet Estimate Adequate, Platelet Morphology Normal, Red Blood Cell Morphology Normal, Sodium Level 138, Potassium Level 3.1L , Chloride Level 95L, Carbon Dioxide Level 32H, Anion Gap 11, Blood Urea Nitrogen 14, Creatinine 0.8, Estimat Glomerular Filtration Rate > 60, Glucose Level 131H, Calcium Level 9.3, Total Bilirubin 2.1H, Direct Bilirubin 0.3, Aspartate Amino Transf (AST/SGOT) 37, Alanine Aminotransferase (ALT/SGPT) 24, Alkaline Phosphatase 101, Pro-B-Type Natriuretic Peptide 206H, Total Protein 7.7 , Albumin 4.2, Globulin 3.5, Albumin/Globulin Ratio 1.2, Thyroid Stimulating Hormone (TSH) 0.676, Free Thyroxine 1.00 Current Medications Medications (Trade) Dose Ordered Sig/Joaquin Route PRN Reason Start Time Stop Time Status Last Admin Dose Admin Albuterol/ Ipratropium (DuoNeb 0.5-3(2.5)mg/3ml) 3 ml Q6HRT HHN 12/23/16 11:00 12/28/16 10:59 12/24/16 07:01 Azithromycin 500 mg/Sodium Chloride 275 ml @ 275 mls/hr Q24HRS IV 12/24/16 03:00 12/31/16 02:59 12/24/16 03:08 Ceftriaxone Sodium/Dextrose (Rocephin/D5W) 55 ml @ 110 mls/hr Q24H IVPB 12/24/16 02:00 12/31/16 01:59 12/24/16 02:26 Clonidine HCl (Catapres) 0.1 mg Q4H PRN ORAL For High Blood Pressure 12/23/16 19:15 01/22/17 19:14 Folic Acid (Folate) 1 mg DAILY ORAL 12/23/16 11:00 01/22/17 10:59 12/24/16 08:49 Furosemide (Lasix) 20 mg EVERY 12 HOURS IV 12/23/16 11:00 01/22/17 10:59 12/23/16 20:26 Heparin Sodium (Porcine) 5000 units 5,000 units EVERY 12 HOURS SUBQ 12/23/16 09:00 01/22/17 08:59 12/24/16 08:49 Lisinopril (Zestril) 10 mg DAILY ORAL 12/24/16 09:00 01/23/17 08:59 12/24/16 08:48 Lorazepam (Ativan 2mg/ml 1ml) 1 mg Q3H PRN IV For Anxiety 12/23/16 08:45 12/30/16 08:44 12/24/16 00:42 Morphine Sulfate (Morphine Sulfate) 2 mg Q4H PRN IVP For Pain 12/23/16 05:45 12/30/16 05:44 12/23/16 15:59 Ondansetron HCl (Zofran) 4 mg Q4H PRN IVP Nausea & Vomiting 12/23/16 07:45 01/22/17 07:44 12/23/16 12:50 Prednisone (predniSONE) 40 mg DAILY ORAL 12/23/16 11:00 01/22/17 10:59 12/24/16 08:47 Salmeterol Xinafoate/ Fluticasone (Advair 250/50 Diskus) 1 puffs BID INH 12/23/16 12:30 01/22/17 12:29 12/23/16 19:02 Thiamine HCl (Vitamin B1) 100 mg DAILY ORAL 12/23/16 11:00 01/22/17 10:59 12/24/16 08:47 RODOLFO SAHU Dec 24, 2016 08:51
[2016-12-24] MEDS: Advair 250/50 Inhaler - 14 dose INH SCH ×2 (09:23→18:52)
[2016-12-24 12:00] VITALS: BP 135/81
--- NOTE | 2016-12-24 15:17 | GI Initial Consult Note ---
History of Present Illness General Date patient seen: Dec 24, 2016 Time patient seen: 14:58 Reason for Hospitalization: Dyspnea/Respdistress Referring physician: MANUELITO SPEARS Reason for Consultation: DIVERTICULITIS Present Illness HPI This is a 56-year-old male with a history of hypertension and CHF. He's not on any medication except for his prostate. Patient presents with chief complaint of shortness of breath. Onset tonight. He said he couldn't breathe. Worse with exertion. Worse with lying flat. EMS said that he was hypoxic and they try to put on oxygen. Patient was wheezing also. No fever chills but no nausea no vomiting. Chest tightness however. Denies any alcohol or drug use. GI Consult. HPI as noted above. GI consulted for diverticulitis as seen on recent APCT. Pt seen on floor, awake A&Ox4 NAD with no active s/sx N/V. Patient denies shelter ETOH use, states he is a social drinker and may of had too much recently. Abdomen is distended, but soft, tender to touch all quads. Pt has mild abdominal pain after eating. Has been passing flatus and having diarrhea. He presents today with leukocytosis, negative utox, and elevated ETOH serum levels. The patient last colonoscopy 5+ years ago and he is unable to recall results. Allergies: Coded Allergies: No Known Allergies (Unverified , 12/22/16) Patient History History Provided By: Patient, Medical Record PMH Narrative Past Medical History: see triage record, old chart reviewed, HTN, CHF Past Surgical History: other Pertinent Family History: none Social History: Denies: drug use, smoking Immunizations: other Reviewed Nursing Documentation: PMH: Agreed, PSxH: Agreed Nursing Documentation-PM Past Medical History: No History, Except For Hx Cardiac Problems: Yes Hx Hypertension: Yes Social History: Reports: alcohol use - social Review of Systems All Other Systems: negative except mentioned in HPI Physical Exam Vital Signs Date Time Temp Pulse Resp B/P Pulse Ox O2 Delivery O2 Flow Rate FiO2 12/22/16 23:32 98.1 93 20 156/90 95 Room Air 12/23/16 00:07 40 12/23/16 03:36 3.0 Sp02 EP Interpretation: reviewed Labs Laboratory Tests Test 12/24/16 03:30 White Blood Count 21.9 K/UL (4.8-10.8) H Red Blood Count 4.30 M/UL (4.70-6.10) L Hemoglobin 13.7 G/DL (14.2-18.0) L Hematocrit 40.3 % (42.0-52.0) L Mean Corpuscular Volume 94 FL (80-99) Mean Corpuscular Hemoglobin 31.8 PG (27.0-31.0) H Mean Corpuscular Hemoglobin Concent 33.9 G/DL (32.0-36.0) Red Cell Distribution Width 11.6 % (11.6-14.8) Platelet Count 179 K/UL (150-450) Mean Platelet Volume 8.0 FL (6.5-10.1) Neutrophils (%) (Auto) % (45.0-75.0) Lymphocytes (%) (Auto) % (20.0-45.0) Monocytes (%) (Auto) % (1.0-10.0) Eosinophils (%) (Auto) % (0.0-3.0) Basophils (%) (Auto) % (0.0-2.0) Differential Total Cells Counted 100 Neutrophils % (Manual) 80 % (45-75) H Lymphocytes % (Manual) 18 % (20-45) L Monocytes % (Manual) 2 % (1-10) Eosinophils % (Manual) 0 % (0-3) Basophils % (Manual) 0 % (0-2) Band Neutrophils 0 % (0-8) Platelet Estimate Adequate Platelet Morphology Normal Red Blood Cell Morphology Normal Sodium Level 138 mEQ/L (135-145) Potassium Level 3.1 mEQ/L (3.4-4.9) L Chloride Level 95 mEQ/L (98-107) L Carbon Dioxide Level 32 mEQ/L (20-30) H Anion Gap 11 (5-15) Blood Urea Nitrogen 14 mg/dL (7-23) Creatinine 0.8 mg/dL (0.7-1.2) Estimat Glomerular Filtration Rate > 60 mL/min (>60) Glucose Level 131 mg/dL (74-106) H Calcium Level 9.3 mg/dL (8.6-10.2) Total Bilirubin 2.1 mg/dL (0.0-1.2) H Direct Bilirubin 0.3 mg/dL (0.1-0.3) Aspartate Amino Transf (AST/SGOT) 37 U/L (5-40) Alanine Aminotransferase (ALT/SGPT) 24 U/L (3-41) Alkaline Phosphatase 101 U/L (40-129) Pro-B-Type Natriuretic Peptide 206 pg/mL (0-125) H Total Protein 7.7 g/dL (6.6-8.7) Albumin 4.2 g/dL (3.5-5.2) Globulin 3.5 g/dL Albumin/Globulin Ratio 1.2 (1.0-2.7) Thyroid Stimulating Hormone (TSH) 0.676 uIU/mL (0.300-4.500) Free Thyroxine 1.00 ng/dL (0.86-1.85) General Appearance: well appearing, no apparent distress, alert Head: normocephalic Neck: supple Respiratory: chest non-tender, normal breath sounds Cardiovascular: normal rate Gastrointestinal: normal inspection, non tender, soft, normal bowel sounds, distended Rectal: deferred Neurologic: alert, oriented x3, responsive Psychiatric: normal inspection, judgement/insight normal Skin: normal inspection, normal color, no rash Lymphatic: normal inspection, no adenopathy Current Medications Current Medications Medications (Trade) Dose Ordered Sig/Joaquin Route PRN Reason Start Time Stop Time Status Last Admin Dose Admin Albuterol/ Ipratropium (DuoNeb 0.5-3(2.5)mg/3ml) 3 ml Q6HRT HHN 12/23/16 11:00 12/28/16 10:59 12/24/16 13:06 Azithromycin 500 mg/Sodium Chloride 275 ml @ 275 mls/hr Q24HRS IV 12/24/16 03:00 12/31/16 02:59 12/24/16 03:08 Ceftriaxone Sodium/Dextrose (Rocephin/D5W) 55 ml @ 110 mls/hr Q24H IVPB 12/24/16 02:00 12/31/16 01:59 12/24/16 02:26 Clonidine HCl (Catapres) 0.1 mg Q4H PRN ORAL For High Blood Pressure 12/23/16 19:15 01/22/17 19:14 Folic Acid (Folate) 1 mg DAILY ORAL 12/23/16 11:00 01/22/17 10:59 12/24/16 08:49 Furosemide (Lasix) 20 mg EVERY 12 HOURS IV 12/23/16 11:00 01/22/17 10:59 12/24/16 09:39 Heparin Sodium (Porcine) 5000 units 5,000 units EVERY 12 HOURS SUBQ 12/23/16 09:00 01/22/17 08:59 12/24/16 08:49 Lisinopril (Zestril) 10 mg DAILY ORAL 12/24/16 09:00 01/23/17 08:59 12/24/16 08:48 Lorazepam (Ativan 2mg/ml 1ml) 1 mg Q3H PRN IV For Anxiety 12/23/16 08:45 12/30/16 08:44 12/24/16 00:42 Morphine Sulfate (Morphine Sulfate) 2 mg Q4H PRN IVP For Pain 12/23/16 05:45 12/30/16 05:44 12/23/16 15:59 Ondansetron HCl (Zofran) 4 mg Q4H PRN IVP Nausea & Vomiting 12/23/16 07:45 01/22/17 07:44 12/23/16 12:50 Prednisone (predniSONE) 40 mg DAILY ORAL 12/23/16 11:00 01/22/17 10:59 12/24/16 08:47 Salmeterol Xinafoate/ Fluticasone (Advair 250/50 Diskus) 1 puffs BID INH 12/23/16 12:30 01/22/17 12:29 12/24/16 09:23 Thiamine HCl (Vitamin B1) 100 mg DAILY ORAL 12/23/16 11:00 01/22/17 10:59 12/24/16 08:47 GI: Plan Problems: (1) Abdominal distension (2) Diverticulitis (3) HTN (hypertension) (4) Leukocytosis, unspecified Plan utox unremarkable elevated serum ETOH abdominal distention >> fu APCT bowel rest CLD, adv as tolerated pain mgmt IV abx >> transition to PO after dc for 10-14 days repeat imaging studies prn H2B pt will require colonoscopy x 2 months after discharge date fu labs Discussed with Dr. Mcgill. Thank you for referring this patient, we will follow. Geetha Mackey N.P. Dec 24, 2016 15:17
--- NOTE | 2016-12-24 15:18 | Diagnostic Imaging Report ---
Clinical Indication: Abdominal pain Technique: Patient given oral contrast. IV administration nonionic contrast. Venous phase spiral acquisition obtained through the abdomen and pelvis. Multiplanar reconstructions were generated. Total dose length product 1026 mGycm. CTDIvol(s) 18 mGy. Dose reduction achieved using automated exposure control Comparison: None Findings: There is marked abnormality of the mid sigmoid colon. There appears to be 2 or 3 adjacent anti-parallel loops of sigmoid, which all demonstrate focal wall thickening, and numerous contiguous extraluminal gas bubbles. There is fairly extensive colonic diverticulosis in this area. Extraluminal abnormal soft tissue attenuation and gas bubbles extend cephalad from this area to the dome of the bladder. No intraluminal bladder gas is demonstrated, however. What may be a normal appendix is visualized on the coronal images, but this is not definite. In any case, there are no findings to suggest acute appendicitis. Some small bowel loops are fluid-filled, particularly distally, but not distended and there is no small bowel wall thickening. Contrast has progressed distally to the level of the distal rectum. Other than the colonic abnormalities, no free or loculated intraperitoneal air or fluid is evident. There is a small fat-containing umbilical hernia. The duodenum, stomach unremarkable. There is a small sliding-type hiatal hernia. There is an exophytic mass coming off of the lower pole of the right kidney. This demonstrates nonspecific soft tissue attenuation, measures 4 cm long axis dimension. There are bilateral renal cysts, as well as bilateral renal subcentimeter low-attenuation lesions which are too small to characterize. No renal or ureteral calculi, hydronephrosis, or hydroureter demonstrated. The seminal vesicles and prostate are unremarkable. The bladder is distended. The liver is diffusely hypoattenuating, consistent with diffuse fatty change. The gallbladder is surgically absent. No biliary ductal dilatation. No focal liver abnormality. The pancreas, spleen, adrenals are unremarkable. No retroperitoneal or mesenteric mass or adenopathy. No pelvic mass or adenopathy. The lung bases demonstrate posterior and basilar dependent atelectatic changes. The bones demonstrate degenerative spondylosis changes. Densities within the subcutaneous fat likely represent subcutaneous injections Impression: Marked abnormality of the sigmoid colon, as described. Suspect findings represent acute diverticulitis, with possible fistulization between 2 or 3 adjacent to sigmoid loops. There is also extension of the process to the dome of the bladder with extraluminal gas and soft tissue abnormality consistent with microperforation, but no definite evidence of fistulization to the bladder lumen. No focal extra luminal fluid collection to suggest peridiverticular abscess demonstrated. The possibility of neoplasm in this area eroding into adjacent colon loops should also be considered and followup imaging after resolution of acute process is recommended. 4 cm solid right lower pole renal mass, highly suspicious for renal neoplasm Fatty liver Nonspecific mildly prominent fluid-filled distal small bowel loops, could represent mild ileus.. No further followup necessary Evidence of prior cholecystectomy Bilateral renal cysts. Bilateral subcentimeter low-attenuation renal lesions, too small to characterize, most likely benign simple cysts Other findings as noted, including dependent posterior basilar pulmonary atelectatic changes, degenerative spondylosis, evidence of subcutaneous injections, small fat-containing umbilical hernia, small hiatal hernia. Findings discussed by phone with Dr. Diane at the time of interpretation The CT scanner at [facility] is accredited by the [employer] and the scans are performed using protocols designed to limit radiation -- exposure to as low as reasonably achievable to attain images of sufficient resolution adequate for diagnostic evaluation.
[2016-12-24 16:01] VITALS: BP 121/86
[2016-12-24] MEDS: PIPERACILLIN IVPB SCH (16:36)
[2016-12-24] MEDS: TAZOBACTAM IVPB SCH (16:36)
[2016-12-24] MEDS: D5W IVPB SCH (16:36)
--- NOTE | 2016-12-24 16:40 | General Progress Note ---
Assessment/Plan Problem List: (1) Acute on chronic diastolic (congestive) heart failure Assessment & Plan: Follow BNP Apprec cardiology f/u Echo shows diastolic dysfunction No evidence of ACS Consider diuresis ICD Codes: I50.33 - Acute on chronic diastolic (congestive) heart failure SNOMED: 60657447, 268398543 (2) Acute respiratory failure with hypoxia and hypercapnia Assessment & Plan: Cont steroids, nebs, advair Apprec Pulm input ICD Codes: J96.01 - Acute respiratory failure with hypoxia; J96.02 - Acute respiratory failure with hypercapnia SNOMED: 39590776, 24253162, [id number] (3) Sepsis Assessment & Plan: Likely etiologies are pna +/- diverticulitis Cont IV abx per ID f/u cultures, as pt has gram pos nora bacteremia ICD Codes: A41.9 - Sepsis, unspecified organism SNOMED: 31806271 (4) Diverticulitis Assessment & Plan: Cont IV abx per ID GI eval Surgical evaluation ICD Codes: K57.92 - Diverticulitis of intestine, part unspecified, without perforation or abscess without bleeding SNOMED: 112182061 Subjective Date patient seen: Dec 24, 2016 Time patient seen: 16:34 ROS Limited/Unobtainable: No Allergies: Coded Allergies: No Known Allergies (Unverified , 12/22/16) Subjective SOB and wheezsing better, breathing better of oxygen, still with abd pain, n/v and diarrhea, CT A/P shows diverticulitis Objective Last 24 Hour Vital Signs Date Time Temp Pulse Resp B/P Pulse Ox O2 Delivery O2 Flow Rate FiO2 12/24/16 16:01 98.3 87 20 121/86 96 Nasal Cannula 3.0 12/24/16 13:05 89 16 100 Nasal Cannula 2.0 28 12/24/16 13:00 96 16 100 Nasal Cannula 2.0 28 12/24/16 12:00 63 12/24/16 12:00 98.1 64 18 135/81 95 Nasal Cannula 3.0 12/24/16 08:48 130/66 12/24/16 08:00 63 12/24/16 08:00 97.9 57 18 130/66 98 Nasal Cannula 3.0 12/24/16 06:50 Nasal Cannula 2.0 28 12/24/16 06:50 61 16 100 Nasal Cannula 2.0 28 12/24/16 06:50 98 Nasal Cannula 2.0 28 12/24/16 06:45 60 16 100 Nasal Cannula 2.0 12/24/16 04:00 75 12/24/16 03:08 97.5 64 20 147/84 100 Nasal Cannula 3.0 12/24/16 01:17 71 16 100 Nasal Cannula 2.0 28 12/24/16 01:07 71 16 100 Nasal Cannula 2.0 12/24/16 00:14 97.7 64 20 154/83 100 Nasal Cannula 3.0 12/23/16 23:55 57 12/23/16 20:00 97.3 73 20 159/88 100 Nasal Cannula 3.0 12/23/16 20:00 72 12/23/16 19:12 73 18 100 Nasal Cannula 2.0 12/23/16 19:04 68 18 100 Nasal Cannula 2.0 12/23/16 19:01 Nasal Cannula 2.0 28 12/23/16 19:01 100 Nasal Cannula 2.0 28 Intake and Output 12/23/16 12/24/16 19:00 07:00 Intake Total 1250 ml 530 ml Output Total 925 ml Balance 325 ml 530 ml Intake Oral 1250 ml 200 ml IV Total 330 ml Output Urine Total 925 ml # Bowel Movements 4 4 Laboratory Tests 12/24/16 03:30: White Blood Count 21.9H, Red Blood Count 4.30L, Hemoglobin 13.7L, Hematocrit 40.3L, Mean Corpuscular Volume 94, Mean Corpuscular Hemoglobin 31.8H, Mean Corpuscular Hemoglobin Concent 33.9, Red Cell Distribution Width 11.6, Platelet Count 179, Mean Platelet Volume 8.0, Neutrophils (%) (Auto) , Lymphocytes (%) ( Auto) , Monocytes (%) (Auto) , Eosinophils (%) (Auto) , Basophils (%) (Auto) , Differential Total Cells Counted 100, Neutrophils % (Manual) 80H, Lymphocytes % (Manual) 18L, Monocytes % (Manual) 2, Eosinophils % (Manual) 0, Basophils % ( Manual) 0, Band Neutrophils 0, Platelet Estimate Adequate, Platelet Morphology Normal, Red Blood Cell Morphology Normal, Sodium Level 138, Potassium Level 3.1L , Chloride Level 95L, Carbon Dioxide Level 32H, Anion Gap 11, Blood Urea Nitrogen 14, Creatinine 0.8, Estimat Glomerular Filtration Rate > 60, Glucose Level 131H, Calcium Level 9.3, Total Bilirubin 2.1H, Direct Bilirubin 0.3, Aspartate Amino Transf (AST/SGOT) 37, Alanine Aminotransferase (ALT/SGPT) 24, Alkaline Phosphatase 101, Pro-B-Type Natriuretic Peptide 206H, Total Protein 7.7 , Albumin 4.2, Globulin 3.5, Albumin/Globulin Ratio 1.2, Thyroid Stimulating Hormone (TSH) 0.676, Free Thyroxine 1.00 Height (Feet): 5 Height (Inches): 5.00 Weight (Pounds): 186 Objective General: alert, cooperative, no distress, appears stated age Head: normocephalic, without obvious abnormality, atraumatic Eyes: conjunctivae/corneas clear. PERRL, EOM's intact Throat: lips, mucosa, and tongue normal. MMM Neck: supple, symmetrical, trachea midline, and no JVD Lungs: clear to auscultation bilaterally Heart: regular rate and rhythm, S1, S2 normal, no murmur, click, rub or gallop Abdomen: LLQ tenderness Extremities: extremities normal, atraumatic, no cyanosis or edema Pulses: 2+ and symmetric Skin: skin color, texture, turgor normal; no rashes or lesions Neurologic: grossly normal, no focal deficits MANUELITO BIRMINGHAM Dec 24, 2016 16:40
--- NOTE | 2016-12-24 17:18 | Infectious Diseases Prog Note ---
Assessment/Plan Assessment/Plan Full consult dictated: A) 1) sepsis, diverticulitis, gram + nora bacteremia, leukocytosis 2) uri/bronchitis, asthma, ? cap 3) pmh noted 4) allergies - negative P) 1) zosyn and flagyl 2) check bc, labs, chest x-ray 3) treatment per Dr. Diane and consultants 4) thank you Subjective Allergies: Coded Allergies: No Known Allergies (Unverified , 12/22/16) Objective Vital Signs Last 24 Hour Vital Signs Date Time Temp Pulse Resp B/P Pulse Ox O2 Delivery O2 Flow Rate FiO2 12/24/16 16:01 98.3 87 20 121/86 96 Nasal Cannula 3.0 12/24/16 16:00 79 12/24/16 13:05 89 16 100 Nasal Cannula 2.0 12/24/16 13:00 96 16 100 Nasal Cannula 2.0 28 12/24/16 12:00 63 12/24/16 12:00 98.1 64 18 135/81 95 Nasal Cannula 3.0 12/24/16 08:48 130/66 12/24/16 08:00 63 12/24/16 08:00 97.9 57 18 130/66 98 Nasal Cannula 3.0 12/24/16 06:50 Nasal Cannula 2.0 12/24/16 06:50 61 16 100 Nasal Cannula 2.0 12/24/16 06:50 98 Nasal Cannula 2.0 12/24/16 06:45 60 16 100 Nasal Cannula 2.0 12/24/16 04:00 75 12/24/16 03:08 97.5 64 20 147/84 100 Nasal Cannula 3.0 12/24/16 01:17 71 16 100 Nasal Cannula 2.0 12/24/16 01:07 71 16 100 Nasal Cannula 2.0 12/24/16 00:14 97.7 64 20 154/83 100 Nasal Cannula 3.0 12/23/16 23:55 57 12/23/16 20:00 97.3 73 20 159/88 100 Nasal Cannula 3.0 12/23/16 20:00 72 12/23/16 19:12 73 18 100 Nasal Cannula 2.0 12/23/16 19:04 68 18 100 Nasal Cannula 2.0 12/23/16 19:01 Nasal Cannula 2.0 28 12/23/16 19:01 100 Nasal Cannula 2.0 28 Height (Feet): 5 Height (Inches): 5.00 Weight (Pounds): 186 Microbiology Date/Time Source Procedure Growth Status 12/23/16 19:30 Blood Blood Culture - Preliminary Resulted Laboratory Tests Test 12/24/16 03:30 White Blood Count 21.9 K/UL (4.8-10.8) H Red Blood Count 4.30 M/UL (4.70-6.10) L Hemoglobin 13.7 G/DL (14.2-18.0) L Hematocrit 40.3 % (42.0-52.0) L Mean Corpuscular Volume 94 FL (80-99) Mean Corpuscular Hemoglobin 31.8 PG (27.0-31.0) H Mean Corpuscular Hemoglobin Concent 33.9 G/DL (32.0-36.0) Red Cell Distribution Width 11.6 % (11.6-14.8) Platelet Count 179 K/UL (150-450) Mean Platelet Volume 8.0 FL (6.5-10.1) Neutrophils (%) (Auto) % (45.0-75.0) Lymphocytes (%) (Auto) % (20.0-45.0) Monocytes (%) (Auto) % (1.0-10.0) Eosinophils (%) (Auto) % (0.0-3.0) Basophils (%) (Auto) % (0.0-2.0) Differential Total Cells Counted 100 Neutrophils % (Manual) 80 % (45-75) H Lymphocytes % (Manual) 18 % (20-45) L Monocytes % (Manual) 2 % (1-10) Eosinophils % (Manual) 0 % (0-3) Basophils % (Manual) 0 % (0-2) Band Neutrophils 0 % (0-8) Platelet Estimate Adequate Platelet Morphology Normal Red Blood Cell Morphology Normal Sodium Level 138 mEQ/L (135-145) Potassium Level 3.1 mEQ/L (3.4-4.9) L Chloride Level 95 mEQ/L (98-107) L Carbon Dioxide Level 32 mEQ/L (20-30) H Anion Gap 11 (5-15) Blood Urea Nitrogen 14 mg/dL (7-23) Creatinine 0.8 mg/dL (0.7-1.2) Estimat Glomerular Filtration Rate > 60 mL/min (>60) Glucose Level 131 mg/dL (74-106) H Calcium Level 9.3 mg/dL (8.6-10.2) Total Bilirubin 2.1 mg/dL (0.0-1.2) H Direct Bilirubin 0.3 mg/dL (0.1-0.3) Aspartate Amino Transf (AST/SGOT) 37 U/L (5-40) Alanine Aminotransferase (ALT/SGPT) 24 U/L (3-41) Alkaline Phosphatase 101 U/L (40-129) Pro-B-Type Natriuretic Peptide 206 pg/mL (0-125) H Total Protein 7.7 g/dL (6.6-8.7) Albumin 4.2 g/dL (3.5-5.2) Globulin 3.5 g/dL Albumin/Globulin Ratio 1.2 (1.0-2.7) Thyroid Stimulating Hormone (TSH) 0.676 uIU/mL (0.300-4.500) Free Thyroxine 1.00 ng/dL (0.86-1.85) Current Medications Medications (Trade) Dose Ordered Sig/Joaquin Route PRN Reason Start Time Stop Time Status Last Admin Dose Admin Albuterol/ Ipratropium (DuoNeb 0.5-3(2.5)mg/3ml) 3 ml Q6HRT HHN 12/23/16 11:00 12/28/16 10:59 12/24/16 13:06 Clonidine HCl (Catapres) 0.1 mg Q4H PRN ORAL For High Blood Pressure 12/23/16 19:15 01/22/17 19:14 Folic Acid (Folate) 1 mg DAILY ORAL 12/23/16 11:00 01/22/17 10:59 12/24/16 08:49 Furosemide (Lasix) 20 mg EVERY 12 HOURS IV 12/23/16 11:00 01/22/17 10:59 12/24/16 09:39 Heparin Sodium (Porcine) (Heparin 5000 units/ml) 5,000 units EVERY 12 HOURS SUBQ 12/23/16 09:00 01/22/17 08:59 12/24/16 08:49 Lisinopril (Zestril) 10 mg DAILY ORAL 12/24/16 09:00 01/23/17 08:59 12/24/16 08:48 Lorazepam (Ativan 2mg/ml 1ml) 1 mg Q3H PRN IV For Anxiety 12/23/16 08:45 12/30/16 08:44 12/24/16 00:42 Morphine Sulfate (Morphine Sulfate) 2 mg Q4H PRN IVP For Pain 12/23/16 05:45 12/30/16 05:44 12/23/16 15:59 Ondansetron HCl (Zofran) 4 mg Q4H PRN IVP Nausea & Vomiting 12/23/16 07:45 01/22/17 07:44 12/23/16 12:50 Piperacillin Sod/ Tazobactam Sod/ Dextrose (Zosyn/D5W) 100 ml @ 25 mls/hr Q8HR@0000,0800,1600 IVPB 12/24/16 16:00 12/31/16 15:59 12/24/16 16:36 Prednisone (predniSONE) 40 mg DAILY ORAL 12/23/16 11:00 01/22/17 10:59 12/24/16 08:47 Ranitidine HCl 150 mg 150 mg BEDTIME ORAL 12/24/16 21:00 01/23/17 20:59 Salmeterol Xinafoate/ Fluticasone (Advair 250/50 Diskus) 1 puffs BID INH 12/23/16 12:30 01/22/17 12:29 12/24/16 09:23 Thiamine HCl (Vitamin B1) 100 mg DAILY ORAL 12/23/16 11:00 01/22/17 10:59 12/24/16 08:47 DARLYN ROGERS Dec 24, 2016 17:18
--- NOTE | 2016-12-24 17:44 | Consultation ---
History of Present Illness General Date patient seen: Dec 24, 2016 Chief Complaint: Dyspnea/Respdistress Referring physician: MANUELITO SPEARS Reason for Consultation: DIVERTICULITIS Present Illness HPI 56M admitted for respiratory insufficiency with SOB and wheezing currently being cared stated complaints of abdominal pain and diarrhea. Patient stated that he has had intermittent abdominal pain for over 1 year now but over the past week it has become more consistent and worsening. No associated nausea or emesis. Has been having non bloody diarrhea for the past week. Last colonoscopy 4 years ago and okay as per patient but he is unsure. Noted to have significant leukocytosis. CT scan performed and significant sigmoid diverticulitis noted. Surgery called for evaluation. Allergies: Coded Allergies: No Known Allergies (Unverified , 12/22/16) Patient History History Provided By: Patient Healthcare decision maker Resuscitation status Full Code Advanced Directive on File Past Medical/Surgical History Past Medical/Surgical History: (1) CHF (congestive heart failure) (2) Leukocytosis, unspecified (3) Respiratory failure with hypoxia (4) Respiratory distress (5) SOB (shortness of breath) (6) HTN (hypertension) (7) Leukocytosis (8) Abdominal distension (9) Diverticulitis (10) Acute on chronic diastolic (congestive) heart failure (11) Acute respiratory failure with hypoxia and hypercapnia (12) Sepsis Review of Systems Constitutional: Denies: chills, fever, malaise, no symptoms, other, see HPI, sweats, weakness Eye: Denies: acuity changes, blurred vision, discharge, double vision, eye pain , no symptoms, nose congestion, nose pain, other, see HPI, tearing ENT: Denies: ear discharge, ear pain, hearing loss, mouth pain, nasal discharge , no symptoms, nose congestion, nose pain, other, see HPI, throat pain, throat swelling Respiratory: Denies: [place], cough, no symptoms, orthopnea, other, see HPI, shortness of breath, sputum, stridor, wheezing Cardiovascular: Denies: PND, chest pain, edema, no symptoms, other, palpitations, see HPI, syncope Gastrointestinal: Reports: abdominal pain, diarrhea Genitourinary: Reports: retention, Denies: discharge, dysuria, frequency, hematuria, incontinence, no symptoms, other, pain, see HPI, urgency, vag bleed/ dc Musculoskeletal: Denies: back pain, gout, joint pain, joint swelling, muscle pain, muscle stiffness, no symptoms, other, see HPI Skin: Denies: change in color, change in hair/nails, dryness, lesions, no symptoms, other, rash, see HPI Psychiatric: Denies: HI, SI, anxiety, depressed feelings, emotional problems, hallucinations, no symptoms, other, prior hx, see HPI Neurological: Denies: dizziness, focal weakness, headache, no symptoms, numbness, other, paresthesia, see HPI, seizure, syncope, tingling, tremors Endocrine: Denies: excessive sweating, flushing, increased thirst, increased urine, intolerance to temperature, no symptoms, other, see HPI, unexplained weight loss Hematologic/Lymphatic: Denies: anemia, blood clots, diathesis, easy bleeding, easy bruising, no symptoms, other, see HPI, swollen glands All Other Systems: negative except mentioned in HPI Physical Exam General Appearance: no apparent distress Lines, tubes and drains: peripheral HEENT: atraumatic, PERRL Neck: normal inspection Respiratory/Chest: no respiratory distress, no accessory muscle use Cardiovascular/Chest: normal peripheral pulses, normal rate, regular rhythm Abdomen: soft, no organomegaly, no mass - soft, tender in lower abdomen without rebound or guarding. no peritonities. , tender Genitourinary/Rectal: normal genital exam Extremities: normal inspection Skin Exam: warm/dry Neurologic: alert, oriented x 3 Last 24 Hour Vital Signs Date Time Temp Pulse Resp B/P Pulse Ox O2 Delivery O2 Flow Rate FiO2 12/24/16 16:01 98.3 87 20 121/86 96 Nasal Cannula 3.0 12/24/16 16:00 79 12/24/16 13:05 89 16 100 Nasal Cannula 2.0 12/24/16 13:00 96 16 100 Nasal Cannula 2.0 28 12/24/16 12:00 63 12/24/16 12:00 98.1 64 18 135/81 95 Nasal Cannula 3.0 12/24/16 08:48 130/66 12/24/16 08:00 63 12/24/16 08:00 97.9 57 18 130/66 98 Nasal Cannula 3.0 12/24/16 06:50 Nasal Cannula 2.0 12/24/16 06:50 61 16 100 Nasal Cannula 2.0 12/24/16 06:50 98 Nasal Cannula 2.0 28 12/24/16 06:45 60 16 100 Nasal Cannula 2.0 28 12/24/16 04:00 75 12/24/16 03:08 97.5 64 20 147/84 100 Nasal Cannula 3.0 12/24/16 01:17 71 16 100 Nasal Cannula 2.0 28 12/24/16 01:07 71 16 100 Nasal Cannula 2.0 28 12/24/16 00:14 97.7 64 20 154/83 100 Nasal Cannula 3.0 12/23/16 23:55 57 12/23/16 20:00 97.3 73 20 159/88 100 Nasal Cannula 3.0 12/23/16 20:00 72 12/23/16 19:12 73 18 100 Nasal Cannula 2.0 12/23/16 19:04 68 18 100 Nasal Cannula 2.0 12/23/16 19:01 Nasal Cannula 2.0 28 12/23/16 19:01 100 Nasal Cannula 2.0 28 Intake and Output 12/23/16 12/24/16 19:00 07:00 Intake Total 1250 ml 530 ml Output Total 925 ml Balance 325 ml 530 ml Intake Oral 1250 ml 200 ml IV Total 330 ml Output Urine Total 925 ml # Bowel Movements 4 4 Laboratory Tests Test 12/24/16 03:30 White Blood Count 21.9 K/UL (4.8-10.8) H Red Blood Count 4.30 M/UL (4.70-6.10) L Hemoglobin 13.7 G/DL (14.2-18.0) L Hematocrit 40.3 % (42.0-52.0) L Mean Corpuscular Volume 94 FL (80-99) Mean Corpuscular Hemoglobin 31.8 PG (27.0-31.0) H Mean Corpuscular Hemoglobin Concent 33.9 G/DL (32.0-36.0) Red Cell Distribution Width 11.6 % (11.6-14.8) Platelet Count 179 K/UL (150-450) Mean Platelet Volume 8.0 FL (6.5-10.1) Neutrophils (%) (Auto) % (45.0-75.0) Lymphocytes (%) (Auto) % (20.0-45.0) Monocytes (%) (Auto) % (1.0-10.0) Eosinophils (%) (Auto) % (0.0-3.0) Basophils (%) (Auto) % (0.0-2.0) Differential Total Cells Counted 100 Neutrophils % (Manual) 80 % (45-75) H Lymphocytes % (Manual) 18 % (20-45) L Monocytes % (Manual) 2 % (1-10) Eosinophils % (Manual) 0 % (0-3) Basophils % (Manual) 0 % (0-2) Band Neutrophils 0 % (0-8) Platelet Estimate Adequate Platelet Morphology Normal Red Blood Cell Morphology Normal Sodium Level 138 mEQ/L (135-145) Potassium Level 3.1 mEQ/L (3.4-4.9) L Chloride Level 95 mEQ/L (98-107) L Carbon Dioxide Level 32 mEQ/L (20-30) H Anion Gap 11 (5-15) Blood Urea Nitrogen 14 mg/dL (7-23) Creatinine 0.8 mg/dL (0.7-1.2) Estimat Glomerular Filtration Rate > 60 mL/min (>60) Glucose Level 131 mg/dL (74-106) H Calcium Level 9.3 mg/dL (8.6-10.2) Total Bilirubin 2.1 mg/dL (0.0-1.2) H Direct Bilirubin 0.3 mg/dL (0.1-0.3) Aspartate Amino Transf (AST/SGOT) 37 U/L (5-40) Alanine Aminotransferase (ALT/SGPT) 24 U/L (3-41) Alkaline Phosphatase 101 U/L (40-129) Pro-B-Type Natriuretic Peptide 206 pg/mL (0-125) H Total Protein 7.7 g/dL (6.6-8.7) Albumin 4.2 g/dL (3.5-5.2) Globulin 3.5 g/dL Albumin/Globulin Ratio 1.2 (1.0-2.7) Thyroid Stimulating Hormone (TSH) 0.676 uIU/mL (0.300-4.500) Free Thyroxine 1.00 ng/dL (0.86-1.85) Microbiology Date/Time Source Procedure Growth Status 12/23/16 19:30 Blood Blood Culture - Preliminary Resulted Height (Feet): 5 Height (Inches): 5.00 Weight (Pounds): 186 Medications Current Medications Medications (Trade) Dose Ordered Sig/Joaquin Route PRN Reason Start Time Stop Time Status Last Admin Dose Admin Albuterol/ Ipratropium (DuoNeb 0.5-3(2.5)mg/3ml) 3 ml Q6HRT HHN 12/23/16 11:00 12/28/16 10:59 12/24/16 13:06 Clonidine HCl (Catapres) 0.1 mg Q4H PRN ORAL For High Blood Pressure 12/23/16 19:15 01/22/17 19:14 Folic Acid (Folate) 1 mg DAILY ORAL 12/23/16 11:00 01/22/17 10:59 12/24/16 08:49 Furosemide (Lasix) 20 mg EVERY 12 HOURS IV 12/23/16 11:00 01/22/17 10:59 12/24/16 09:39 Heparin Sodium (Porcine) (Heparin 5000 units/ml) 5,000 units EVERY 12 HOURS SUBQ 12/23/16 09:00 01/22/17 08:59 12/24/16 08:49 Lisinopril (Zestril) 10 mg DAILY ORAL 12/24/16 09:00 01/23/17 08:59 12/24/16 08:48 Lorazepam (Ativan 2mg/ml 1ml) 1 mg Q3H PRN IV For Anxiety 12/23/16 08:45 12/30/16 08:44 12/24/16 00:42 Metronidazole (Flagyl) 100 ml @ 100 mls/hr Q8HR IVPB 12/24/16 18:00 12/31/16 17:59 Morphine Sulfate (Morphine Sulfate) 2 mg Q4H PRN IVP For Pain 12/23/16 05:45 12/30/16 05:44 12/23/16 15:59 Ondansetron HCl (Zofran) 4 mg Q4H PRN IVP Nausea & Vomiting 12/23/16 07:45 01/22/17 07:44 12/23/16 12:50 Piperacillin Sod/ Tazobactam Sod 4.5 gm/Dextrose 100 ml @ 25 mls/hr Q8HR@0000,0800,1600 IVPB 12/24/16 16:00 12/31/16 15:59 7/14/17 16:36 Prednisone (predniSONE) 40 mg DAILY ORAL 12/23/16 11:00 01/22/17 10:59 12/24/16 08:47 Ranitidine HCl 150 mg 150 mg BEDTIME ORAL 12/24/16 21:00 01/23/17 20:59 Salmeterol Xinafoate/ Fluticasone (Advair 250/50 Diskus) 1 puffs BID INH 12/23/16 12:30 01/22/17 12:29 12/24/16 09:23 Thiamine HCl (Vitamin B1) 100 mg DAILY ORAL 12/23/16 11:00 01/22/17 10:59 12/24/16 08:47 Assessment/Plan Problem List: (1) Diverticulitis Assessment & Plan: 56M with acute diverticulitis complicated by small localized microperforation. Afebrile, HD stable, leukocytosis 21k (trending down), exam with lower abdominal tenderness but no peritonitis. CT scan reviewed and no free air, abscess, or free fluid noted. -No acute surgical intervention -Will monitor with medical management of acute diverticulitis -NPO with IV fluids for a few days of bowel rest -IV Abx -sanz give urinary retention and CT findings -if does not improve over the next few days will likely need surgery. thank you for this consultation. will follow with you ICD Codes: K57.92 - Diverticulitis of intestine, part unspecified, without perforation or abscess without bleeding SNOMED: 659200504 Status: stable Malick Simon Dec 24, 2016 17:44
--- NOTE | 2016-12-24 18:08 | Cardiac Electrophysiology PN ---
Assessment/Plan Assessment/Plan 1. Accelerated hypertension. Better on lisinopril 10 mg twice a day and Lasix. Echocardiogram report pending. 2. Congestive heart failure. Again BNP is not very high 3. History of heavy alcohol use. 4. Sepsis, diverticulitis, gram + nora bacteremia, leukocytosis On abx per Dr Gee Subjective Subjective Comfortable in NAD. Had abdominal pain earlier.HAd CT abdomen. No arrhythmias. Objective Last 24 Hour Vital Signs Date Time Temp Pulse Resp B/P Pulse Ox O2 Delivery O2 Flow Rate FiO2 12/24/16 16:01 98.3 87 20 121/86 96 Nasal Cannula 3.0 12/24/16 16:00 79 12/24/16 13:05 89 16 100 Nasal Cannula 2.0 28 12/24/16 13:00 96 16 100 Nasal Cannula 2.0 28 12/24/16 12:00 63 12/24/16 12:00 98.1 64 18 135/81 95 Nasal Cannula 3.0 12/24/16 08:48 130/66 12/24/16 08:00 63 12/24/16 08:00 97.9 57 18 130/66 98 Nasal Cannula 3.0 12/24/16 06:50 Nasal Cannula 2.0 28 12/24/16 06:50 61 16 100 Nasal Cannula 2.0 12/24/16 06:50 98 Nasal Cannula 2.0 28 12/24/16 06:45 60 16 100 Nasal Cannula 2.0 28 12/24/16 04:00 75 12/24/16 03:08 97.5 64 20 147/84 100 Nasal Cannula 3.0 12/24/16 01:17 71 16 100 Nasal Cannula 2.0 12/24/16 01:07 71 16 100 Nasal Cannula 2.0 12/24/16 00:14 97.7 64 20 154/83 100 Nasal Cannula 3.0 12/23/16 23:55 57 12/23/16 20:00 97.3 73 20 159/88 100 Nasal Cannula 3.0 12/23/16 20:00 72 12/23/16 19:12 73 18 100 Nasal Cannula 2.0 28 12/23/16 19:04 68 18 100 Nasal Cannula 2.0 28 12/23/16 19:01 Nasal Cannula 2.0 28 12/23/16 19:01 100 Nasal Cannula 2.0 28 Intake and Output 12/23/16 12/24/16 19:00 07:00 Intake Total 1250 ml 530 ml Output Total 925 ml Balance 325 ml 530 ml Intake Oral 1250 ml 200 ml IV Total 330 ml Output Urine Total 925 ml # Bowel Movements 4 4 Laboratory Tests Test 12/24/16 03:30 White Blood Count 21.9 K/UL (4.8-10.8) H Red Blood Count 4.30 M/UL (4.70-6.10) L Hemoglobin 13.7 G/DL (14.2-18.0) L Hematocrit 40.3 % (42.0-52.0) L Mean Corpuscular Volume 94 FL (80-99) Mean Corpuscular Hemoglobin 31.8 PG (27.0-31.0) H Mean Corpuscular Hemoglobin Concent 33.9 G/DL (32.0-36.0) Red Cell Distribution Width 11.6 % (11.6-14.8) Platelet Count 179 K/UL (150-450) Mean Platelet Volume 8.0 FL (6.5-10.1) Neutrophils (%) (Auto) % (45.0-75.0) Lymphocytes (%) (Auto) % (20.0-45.0) Monocytes (%) (Auto) % (1.0-10.0) Eosinophils (%) (Auto) % (0.0-3.0) Basophils (%) (Auto) % (0.0-2.0) Differential Total Cells Counted 100 Neutrophils % (Manual) 80 % (45-75) H Lymphocytes % (Manual) 18 % (20-45) L Monocytes % (Manual) 2 % (1-10) Eosinophils % (Manual) 0 % (0-3) Basophils % (Manual) 0 % (0-2) Band Neutrophils 0 % (0-8) Platelet Estimate Adequate Platelet Morphology Normal Red Blood Cell Morphology Normal Sodium Level 138 mEQ/L (135-145) Potassium Level 3.1 mEQ/L (3.4-4.9) L Chloride Level 95 mEQ/L (98-107) L Carbon Dioxide Level 32 mEQ/L (20-30) H Anion Gap 11 (5-15) Blood Urea Nitrogen 14 mg/dL (7-23) Creatinine 0.8 mg/dL (0.7-1.2) Estimat Glomerular Filtration Rate > 60 mL/min (>60) Glucose Level 131 mg/dL (74-106) H Calcium Level 9.3 mg/dL (8.6-10.2) Total Bilirubin 2.1 mg/dL (0.0-1.2) H Direct Bilirubin 0.3 mg/dL (0.1-0.3) Aspartate Amino Transf (AST/SGOT) 37 U/L (5-40) Alanine Aminotransferase (ALT/SGPT) 24 U/L (3-41) Alkaline Phosphatase 101 U/L (40-129) Pro-B-Type Natriuretic Peptide 206 pg/mL (0-125) H Total Protein 7.7 g/dL (6.6-8.7) Albumin 4.2 g/dL (3.5-5.2) Globulin 3.5 g/dL Albumin/Globulin Ratio 1.2 (1.0-2.7) Thyroid Stimulating Hormone (TSH) 0.676 uIU/mL (0.300-4.500) Free Thyroxine 1.00 ng/dL (0.86-1.85) Microbiology Date/Time Source Procedure Growth Status 12/23/16 19:30 Blood Blood Culture - Preliminary Resulted Objective HEAD AND NECK: Shows no JVD. LUNGS: Decreased breath sounds. CARDIOVASCULAR: Shows regular S1 and S2 with no gallop. ABDOMEN: Soft. EXTREMITIES: 1+ pitting edema. CHARLEE MARION Dec 24, 2016 18:08
[2016-12-24] MEDS: metroNIDAZOLE 500mg 100 ML IVPB SCH (18:18)
[2016-12-24 20:00] VITALS: BP 139/79
[2016-12-25] VITALS: BP 128/79
[2016-12-25] MEDS: DuoNeb 0.5-3(2.5)mg/3ml neb HHN SCH ×4 (01:25→18:48)
[2016-12-25 04:00] VITALS: BP 130/81
[2016-12-25 05:28] LABS: MEAN CORPUSCULAR HGB CONC 34.1 G/DL (32.0-36.0); MEAN CORPUSCULAR VOLUME 94 FL (80-99); MEAN PLATELET VOLUME 9.1 FL (6.5-10.1); PLATELET COUNT 144 K/UL (150-450); RED BLOOD COUNT 4.21 M/UL (4.70-6.10); WHITE BLOOD COUNT 19.5 K/UL (4.8-10.8)
[2016-12-25 05:47] LABS: ALANINE AMINOTRANSFERASE 32 U/L (3-41); ALBUMIN/GLOBULIN RATIO 1.1 (1.0-2.7); ANION GAP 15 (5-15); ASPARTATE AMINO TRANSFERASE 41 U/L (5-40); CALCIUM 9.2 mg/dL (8.6-10.2); CARBON DIOXIDE 30 mEQ/L (20-30); CHLORIDE 96 mEQ/L (98-107); CREATININE 0.8 mg/dL (0.7-1.2); GLOMERULAR FILTRATION RATE > 60 mL/min (>60); HEMOLYSIS 3; LIPASE 50 U/L (< 60); SODIUM 141 mEQ/L (135-145); TOTAL PROTEIN 7.2 g/dL (6.6-8.7)
[2016-12-25] MEDS: metroNIDAZOLE 500mg 100 ML IVPB SCH ×3 (06:00→22:01)
--- NOTE | 2016-12-25 06:45 | Consultation ---
DATE OF CONSULTATION: 12/24/2016 INFECTIOUS DISEASES CONSULTATION CONSULTING PHYSICIAN: Sudheer Richey M.D. ATTENDING PHYSICIAN: Eugenio Diane M.D. REASON FOR CONSULTATION: Diverticulitis, sepsis, and leukocytosis. The patient's chief complaint coming in the hospital is respiratory insufficiency. HISTORY OF PRESENT ILLNESS: This is a 56-year-old male who comes into [facility] with congestion and shortness of breath. The patient comes in with COPD and asthma. The patient was noted to have leukocytosis and sepsis. Workup shows that CT scan of abdomen and pelvis shows acute diverticulitis. He does have abdominal discomfort. The patient will be placed on Zosyn and Flagyl. Initial chest x-ray is negative for pneumonia. The patient certainly could also have respiratory infection/upper respiratory infection, bronchitis in addition COPD and asthma. Continue Zosyn and Flagyl pending workup. Of note, also the patient is on Zosyn and Flagyl at this time. The patient of note has gram-positive nora bacteremia, identification pending. Case was communicated and discussed with Dr. Diane. PAST MEDICAL HISTORY: The patient has past medical history of hypertension, CHF, history of asthma, COPD, he comes in with shortness of breath, history of BPH in addition to hypertension and CHF. The patient also has rhabdomyolysis, elevated blood sugars, alcoholism, and cardiomegaly. MEDICATIONS: Upon reviewing the MAR, the patient is on following medications on Zantac, Zosyn, Flagyl, Zestril, Catapress, Advair, vitamin B, folate, Duo-Neb, Lasix, prednisone, heparin, lorazepam, Zofran, and morphine. ALLERGIES: No known drug allergies. SOCIAL HISTORY: Positive for ETOH. No drug or smoking abuse. FAMILY HISTORY: Noncontributory. REVIEW OF SYSTEMS: Constitutional: The patient has generalized weakness and fatigue. No fever or chills. No weight loss. Head And Neck: No head pain or neck pain. Cardiac: No chest pain. Gastrointestinal: Some abdominal discomfort. Genitourinary: No dysuria or frequency. Pulmonary: Congestion and shortness of breath. No secretion or hemoptysis. Skin: No rash or itching. Neurologic: No seizures. PHYSICAL EXAMINATION: GENERAL: Alert and responsive, no acute distress. VITAL SIGNS: Temperature is 98.3 degrees, pulse rate 87, respiratory rate 20, blood pressure 121/86, and saturation 96%. HEAD AND NECK: Oral exam, no thrush. Eye exam, no icterus. Normocephalic. No facial droop. No neck stiffness. HEART: Regular. No gallop or murmur. LUNGS: Bilateral rhonchi and wheezing. No rales. ABDOMEN: Soft. Positive bowel sounds. Nontender. SKIN: No rash or dermatitis. MUSCULOSKELETAL: No contractures. Legs are without cellulitis. PERIPHERAL VASCULAR: No cyanosis or gangrene. RECTAL: Deferred. GENITOURINARY: No Mcmillan. LINES: Line sites are without phlebitis. NEUROLOGIC: Neurologically intact. LABORATORY AND DIAGNOSTIC DATA: The patient's white count 21.9 and 24.5 yesterday and hemoglobin 13.7. Creatinine is 0.8. Urinalysis was 0-2 white blood cells. Blood cultures grew gram-positive rods. LFTs are noted. CK was as high as 237 initially. Sodium 146. . Imaging studies, chest x-ray showed no acute pulmonary disease. Initial followup chest x-ray initial chest x-ray. CT scan of the abdomen and pelvis was consistent with marked abnormality of the sigmoid, suspect acute diverticulitis, fistulization, sigmoid loop, also microperforation. Report was reviewed. ASSESSMENT AND PLAN: 1. The patient has likely sepsis with gram-positive nora bacteremia and diverticulitis. CT scan was reviewed and was consistent with acute diverticulitis and possible fistulization and microperforation. At this time, we will continue Zosyn and Flagyl. Check identification of blood cultures. Check followup labs. Please check surveillance blood cultures. I will consider surgical evaluation also. 2. Upper respiratory infection, bronchitis, asthma, chronic obstructive pulmonary disease. Continue antibiotics and chest x-ray is negative. Rule out community-acquired pneumonia. We will get followup chest x-ray. 3. The patient has a history of hypertension. 4. Congestive heart failure. 5. Cardiomegaly. 6. Alcoholism. 7. Rhabdomyolysis. 8. Abnormal liver enzyme. 9. Elevated blood sugars. 10. Past medical history noted. 11. No allergies. 12. Case was discussed and communicated with Dr. Diane. 13. MAR was noted. 14. Notes were reviewed. 15. Continue treatment per primary consultants. 16. . Sudheer Richey M.D. DR: STEPHANIA JOB#: [id number] CC:
[2016-12-25 06:59] LABS: BAND NEUTROPHILS % (MANUAL) 0 % (0-8); BASOPHILS % (MANUAL) 0 % (0-2); EOSINOPHILS % (MANUAL) 0 % (0-3); LYMPHOCYTES % (MANUAL) 17 % (20-45); NEUTROPHILS % (MANUAL) 80 % (45-75); PLATELET ESTIMATE DECREASED; PLATELET MORPHOLOGY NORMAL; TOTAL CELLS COUNTED 100
[2016-12-25 08:00] VITALS: BP 120/68
[2016-12-25] MEDS: PredniSONE 20mg tab ORAL SCH (08:23)
[2016-12-25] MEDS: Thiamine 100mg tab ORAL SCH (08:23)
[2016-12-25] MEDS: Heparin 5000 units/ml inj SUBQ SCH ×2 (08:23→20:44)
[2016-12-25 08:24] LABS: BILIRUBIN,DIRECT 0.3 mg/dL (0.1-0.3)
[2016-12-25] MEDS: Lisinopril 10mg tab ORAL SCH (08:24)
[2016-12-25] MEDS: PIPERACILLIN IVPB SCH ×4 (08:25→16:06)
[2016-12-25] MEDS: TAZOBACTAM IVPB SCH ×4 (08:25→16:06)
[2016-12-25] MEDS: D5W IVPB SCH ×4 (08:25→16:06)
--- NOTE | 2016-12-25 08:26 | General Progress Note ---
Assessment/Plan Problem List: (1) CHF (congestive heart failure) ICD Codes: I50.9 - Heart failure, unspecified SNOMED: 20599157 Qualifiers: Qualified Codes: I50.9 - Heart failure, unspecified (2) Leukocytosis, unspecified ICD Codes: D72.829 - Elevated white blood cell count, unspecified SNOMED: 034843680, 327361285 (3) HTN (hypertension) ICD Codes: I10 - Essential (primary) hypertension SNOMED: 75459770 (4) Diverticulitis ICD Codes: K57.92 - Diverticulitis of intestine, part unspecified, without perforation or abscess without bleeding SNOMED: 788524435 (5) Acute on chronic diastolic (congestive) heart failure ICD Codes: I50.33 - Acute on chronic diastolic (congestive) heart failure SNOMED: 62517984, 966341263 (6) Sepsis ICD Codes: A41.9 - Sepsis, unspecified organism SNOMED: 57209059 Assessment/Plan iv abx per ID fu with surgery recommendations hold colonoscopy for now given possible diverticulitis Subjective ROS Limited/Unobtainable: Yes Allergies: Coded Allergies: No Known Allergies (Unverified , 12/22/16) Subjective no abd pain Objective Last 24 Hour Vital Signs Date Time Temp Pulse Resp B/P Pulse Ox O2 Delivery O2 Flow Rate FiO2 12/25/16 08:00 97.5 53 18 120/68 98 Nasal Cannula 2.0 12/25/16 07:28 99 Nasal Cannula 3.0 32 12/25/16 07:28 Nasal Cannula 3.0 32 12/25/16 04:37 55 12/25/16 04:00 98.5 81 17 130/81 97 Nasal Cannula 2.0 12/25/16 01:35 87 18 100 Nasal Cannula 3.0 32 12/25/16 01:25 58 17 98 Nasal Cannula 3.0 32 12/25/16 00:00 98.0 79 20 128/79 96 Nasal Cannula 3.0 12/24/16 23:36 61 12/24/16 20:07 78 12/24/16 20:00 97.7 78 20 139/79 98 Nasal Cannula 3.0 12/24/16 19:03 92 18 100 Nasal Cannula 3.0 32 12/24/16 18:56 86 18 100 Nasal Cannula 3.0 32 12/24/16 18:56 Nasal Cannula 3.0 32 12/24/16 18:56 100 Nasal Cannula 3.0 32 12/24/16 16:01 98.3 87 20 121/86 96 Nasal Cannula 3.0 12/24/16 16:00 79 12/24/16 13:05 89 16 100 Nasal Cannula 2.0 28 12/24/16 13:00 96 16 100 Nasal Cannula 2.0 28 12/24/16 12:00 63 12/24/16 12:00 98.1 64 18 135/81 95 Nasal Cannula 3.0 12/24/16 08:48 130/66 Intake and Output 12/24/16 12/25/16 19:00 07:00 Intake Total 860 ml 500 ml Output Total 400 ml 800 ml Balance 460 ml -300 ml Intake Oral 810 ml 300 ml IV Total 50 ml 200 ml Output Urine Total 400 ml 800 ml # Voids 1 # Bowel Movements 6 1 Laboratory Tests 12/25/16 03:25: White Blood Count 19.5H, Red Blood Count 4.21L, Hemoglobin 13.5L, Hematocrit 39.5L, Mean Corpuscular Volume 94, Mean Corpuscular Hemoglobin 32.0H, Mean Corpuscular Hemoglobin Concent 34.1, Red Cell Distribution Width 12.0, Platelet Count 144L, Mean Platelet Volume 9.1, Neutrophils (%) (Auto) , Lymphocytes (%) ( Auto) , Monocytes (%) (Auto) , Eosinophils (%) (Auto) , Basophils (%) (Auto) , Differential Total Cells Counted 100, Neutrophils % (Manual) 80H, Lymphocytes % (Manual) 17L, Monocytes % (Manual) 3, Eosinophils % (Manual) 0, Basophils % ( Manual) 0, Band Neutrophils 0, Platelet Estimate DecreasedL, Platelet Morphology Normal, Red Blood Cell Morphology Normal, Sodium Level 141, Potassium Level 3.0L, Chloride Level 96L, Carbon Dioxide Level 30, Anion Gap 15 , Blood Urea Nitrogen 15, Creatinine 0.8, Estimat Glomerular Filtration Rate > 60, Glucose Level 95, Calcium Level 9.2, Total Bilirubin 2.0H, Direct Bilirubin [Pending], Aspartate Amino Transf (AST/SGOT) 41H, Alanine Aminotransferase (ALT/ SGPT) 32, Alkaline Phosphatase 96, Total Protein 7.2, Albumin 3.8, Globulin 3.4 , Albumin/Globulin Ratio 1.1, Lipase 50 Height (Feet): 5 Height (Inches): 5.00 Weight (Pounds): 186 General Appearance: alert EENT: normal ENT inspection Neck: supple Cardiovascular: normal rate Respiratory/Chest: decreased breath sounds Abdomen: normal bowel sounds, non tender, soft Extremities: non-tender JONO AHUMADA Dec 25, 2016 08:25
--- NOTE | 2016-12-25 08:30 | Consultation ---
DATE OF CONSULTATION: 12/24/2016 HEMATOLOGY/ONCOLOGY CONSULTATION NOTE CONSULTING PHYSICIAN: Bassam Uribe M.D. ATTENDING PHYSICIAN: Eugenio Diane M.D. REASON FOR CONSULTATION: Evaluation of renal mass and management of renal mass. IDENTIFICATION DATA: Dear Dr. Eugenio Diane. The patient is a 56-year-old male with a past medical history significant for CHF, hypertension, history of asthma at this time presents to the ER with shortness of breath that has been ongoing for the past day. He denies any new medications, except for treatment of BPH. He reports dyspnea on exertion as well as orthopnea. He complains of some chest pain. EKG showed no acute ST elevation. Troponins were negative. The patient was given IV Lasix well. He was placed on O2 via nasal canula. Shortness of breath has improved. He also reports productive cough. Denies any fevers or chills. Rufus any hematemesis or melena. Emesis is nonbloody. Denies taking antibiotics. Also has been reporting injecting . Drinks one to two drinks per week, but alcohol level was elevated on admission. PAST MEDICAL HISTORY: As noted above. PAST SURGICAL HISTORY: None noted. REVIEW OF SYSTEMS: Constitutional: No fevers, chills, or night sweats. Skin: No rashes, lumps, or itching. HEENT: No headache, hearing, or vision changes. Breasts: No lumps, pain, or discharge. Pulmonary: Some dyspnea on exertion. Some cough, orthopnea, and shortness of breath. Cardiovascular: Chest pain with mild intermittent tightness. No palpitations. Gastrointestinal: Some abdominal pain, diarrhea, and nausea. Genitourinary: No dysuria, frequency, or urgency. Musculoskeletal: No joint swelling, muscle pain, or trauma. Neurological: No dizziness, fainting, or seizures. PHYSICAL EXAMINATION: GENERAL: The patient is in no acute distress. VITAL SIGNS: Temperature respiratory rate 12, O2 saturation 100% on nasal canula. PULMONARY: Decreased breath sounds. CARDIOVASCULAR: Regular rate and rhythm. No S3 or S4 noted. ABDOMEN: Soft, nontender, and nondistended. EXTREMITIES: A 1+ edema. LABORATORY DATA: WBC hematocrit 40, platelet count 179,000, neutrophils 80%. INR 1. Chemistry, BUN of 14 and creatinine 0.8. Urine toxicology is negative. IMAGING: CAT scan of the abdomen and pelvis reviewed, 4 cm along the right lower lobe renal mass, highly suspicious for neoplasm, evidence of cholecystectomy. ASSESSMENT: 1. Renal mass was noted on CAT scan that is approximately 4 cm in size, with benign simple cyst as well, well attenuated. We will recommend to evaluate Bosniak score and may require surveillance. Recommend either rescanning the mass in 6 to 12 months versus surgical excision. Please consult Urology. 2. Leukocytosis which is very mild. 3. Respiratory distress with shortness of breath. 4. Intermittent abdominal pain. 5. Acute diverticulitis, microperforation. 6. Hyperglycemia. 7. Discussed with staff. 8. I greatly appreciate consultation. Bassam Uribe M.D. DR: Jonathan JOB#: [id number] CC:
[2016-12-25] MEDS: Advair 250/50 Inhaler - 14 dose INH SCH ×2 (08:32→18:47)
[2016-12-25] MEDS: Morphine Sulfate 2mg/ml Inj IVP PRN ×2 (10:09→13:58)
--- NOTE | 2016-12-25 11:34 | Diagnostic Imaging Report ---
Indication: Cough Technique: XRAY CHEST 1 V Comparison: 12/23/16 Findings: Cardiomediastinal silhouette is stable. There is no consolidation or pleural effusion. Osseous structures are stable. Impression: No interval change from 12/23/16.
[2016-12-25 12:00] VITALS: BP 127/64
--- NOTE | 2016-12-25 12:22 | General Progress Note ---
Progress Note Progress Note Afebrile. Pt continues to have some lower abdominal pain, he also c/o burning with urination. Abdomen shows some tenderness in the suprapubic area. WBC is 19.5. We need to continue with parenteral antibiotics for his diverticulitis. Pt was told that if clinical course does not improve we will need to consider a partial colectomy with diverting colostomy. Claudio Taylor MD Dec 25, 2016 12:21
--- NOTE | 2016-12-25 14:35 | Cardiac Electrophysiology PN ---
Assessment/Plan Assessment/Plan 1. Accelerated hypertension. Continue lisinopril 10 mg twice a day and DC Lasix. Echocardiogram EF 55%. 2. Congestive heart failure hx. BNP is not very high and EF 55%. DC Lasix. 3. Chest pain . Atypical. ECG normal. Will check troponin 4. History of heavy alcohol use. 5. Sepsis, diverticulitis, gram + nora bacteremia, leukocytosis On abx per Dr Gerard CASTORENA RN Subjective Subjective Comfortable in NAD. Had chest pain earlier today but ECG was completely normal.No arrhythmias. Objective Last 24 Hour Vital Signs Date Time Temp Pulse Resp B/P Pulse Ox O2 Delivery O2 Flow Rate FiO2 12/25/16 14:28 97.7 12/25/16 12:58 61 18 100 Nasal Cannula 3.0 32 12/25/16 12:55 64 16 100 Nasal Cannula 2.0 28 12/25/16 12:00 97.7 61 18 127/64 98 Nasal Cannula 3.0 12/25/16 12:00 62 12/25/16 08:33 55 18 100 Nasal Cannula 3.0 32 12/25/16 08:25 60 16 100 Nasal Cannula 2.0 28 12/25/16 08:24 120/68 12/25/16 08:00 97.5 53 18 120/68 98 Nasal Cannula 2.0 12/25/16 08:00 55 12/25/16 07:28 99 Nasal Cannula 3.0 32 12/25/16 07:28 Nasal Cannula 3.0 32 12/25/16 04:37 55 12/25/16 04:00 98.5 81 17 130/81 97 Nasal Cannula 2.0 12/25/16 01:35 87 18 100 Nasal Cannula 3.0 32 12/25/16 01:25 58 17 98 Nasal Cannula 3.0 32 12/25/16 00:00 98.0 79 20 128/79 96 Nasal Cannula 3.0 12/24/16 23:36 61 12/24/16 20:07 78 12/24/16 20:00 97.7 78 20 139/79 98 Nasal Cannula 3.0 12/24/16 19:03 92 18 100 Nasal Cannula 3.0 32 12/24/16 18:56 86 18 100 Nasal Cannula 3.0 32 12/24/16 18:56 Nasal Cannula 3.0 32 12/24/16 18:56 100 Nasal Cannula 3.0 32 12/24/16 16:01 98.3 87 20 121/86 96 Nasal Cannula 3.0 12/24/16 16:00 79 Intake and Output 12/24/16 12/25/16 19:00 07:00 Intake Total 860 ml 500 ml Output Total 400 ml 800 ml Balance 460 ml -300 ml Intake Oral 810 ml 300 ml IV Total 50 ml 200 ml Output Urine Total 400 ml 800 ml # Voids 1 # Bowel Movements 6 1 Laboratory Tests Test 12/25/16 03:25 White Blood Count 19.5 K/UL (4.8-10.8) H Red Blood Count 4.21 M/UL (4.70-6.10) L Hemoglobin 13.5 G/DL (14.2-18.0) L Hematocrit 39.5 % (42.0-52.0) L Mean Corpuscular Volume 94 FL (80-99) Mean Corpuscular Hemoglobin 32.0 PG (27.0-31.0) H Mean Corpuscular Hemoglobin Concent 34.1 G/DL (32.0-36.0) Red Cell Distribution Width 12.0 % (11.6-14.8) Platelet Count 144 K/UL (150-450) L Mean Platelet Volume 9.1 FL (6.5-10.1) Neutrophils (%) (Auto) % (45.0-75.0) Lymphocytes (%) (Auto) % (20.0-45.0) Monocytes (%) (Auto) % (1.0-10.0) Eosinophils (%) (Auto) % (0.0-3.0) Basophils (%) (Auto) % (0.0-2.0) Differential Total Cells Counted 100 Neutrophils % (Manual) 80 % (45-75) H Lymphocytes % (Manual) 17 % (20-45) L Monocytes % (Manual) 3 % (1-10) Eosinophils % (Manual) 0 % (0-3) Basophils % (Manual) 0 % (0-2) Band Neutrophils 0 % (0-8) Platelet Estimate Decreased L Platelet Morphology Normal Red Blood Cell Morphology Normal Sodium Level 141 mEQ/L (135-145) Potassium Level 3.0 mEQ/L (3.4-4.9) L Chloride Level 96 mEQ/L (98-107) L Carbon Dioxide Level 30 mEQ/L (20-30) Anion Gap 15 (5-15) Blood Urea Nitrogen 15 mg/dL (7-23) Creatinine 0.8 mg/dL (0.7-1.2) Estimat Glomerular Filtration Rate > 60 mL/min (>60) Glucose Level 95 mg/dL (74-106) Calcium Level 9.2 mg/dL (8.6-10.2) Total Bilirubin 2.0 mg/dL (0.0-1.2) H Direct Bilirubin 0.3 mg/dL (0.1-0.3) Aspartate Amino Transf (AST/SGOT) 41 U/L (5-40) H Alanine Aminotransferase (ALT/SGPT) 32 U/L (3-41) Alkaline Phosphatase 96 U/L (40-129) Total Protein 7.2 g/dL (6.6-8.7) Albumin 3.8 g/dL (3.5-5.2) Globulin 3.4 g/dL Albumin/Globulin Ratio 1.1 (1.0-2.7) Lipase 50 U/L (< 60) Microbiology Date/Time Source Procedure Growth Status 12/23/16 19:45 Blood Blood Culture - Preliminary NO GROWTH AFTER 24 HOURS Resulted 12/23/16 19:30 Blood Blood Culture - Final Bacillus Sp Not B. Anthracis Complete Objective HEAD AND NECK: Shows no JVD. LUNGS: Decreased breath sounds. CARDIOVASCULAR: Regular S1 and S2 with no gallop. ABDOMEN: Soft. EXTREMITIES: 1+ pitting edema. CHARLEE MARION Dec 25, 2016 14:35
[2016-12-25 15:31] LABS: TROPONIN I < 0.30 ng/mL (<=0.30)
[2016-12-25 16:00] VITALS: BP 110/65
--- NOTE | 2016-12-25 16:11 | General Progress Note ---
Assessment/Plan Problem List: (1) Acute on chronic diastolic (congestive) heart failure Assessment & Plan: Follow BNP Apprec cardiology f/u Echo shows diastolic dysfunction No evidence of ACS Consider diuresis ICD Codes: I50.33 - Acute on chronic diastolic (congestive) heart failure SNOMED: 60612741, 300023753 (2) Acute respiratory failure with hypoxia and hypercapnia Assessment & Plan: Cont steroids, nebs, advair Apprec Pulm input ICD Codes: J96.01 - Acute respiratory failure with hypoxia; J96.02 - Acute respiratory failure with hypercapnia SNOMED: 10396327, 68511409, 348033676 (3) Sepsis Assessment & Plan: Likely etiologies are pna +/- diverticulitis Cont IV abx per ID f/u cultures, as pt has bacillus bacteremia ICD Codes: A41.9 - Sepsis, unspecified organism SNOMED: 99689799 (4) Diverticulitis Assessment & Plan: Cont IV abx per ID GI eval noted Surgical evaluation appreciated ICD Codes: K57.92 - Diverticulitis of intestine, part unspecified, without perforation or abscess without bleeding SNOMED: 735753635 Subjective Date patient seen: Dec 25, 2016 Time patient seen: 16:10 ROS Limited/Unobtainable: No Allergies: Coded Allergies: No Known Allergies (Unverified , 12/22/16) Subjective SOB and wheezsing better, breathing better of oxygen, still with abd pain, no n/ v and diarrhea, CT A/P shows diverticulitis, blood cx showing bacillus Objective Last 24 Hour Vital Signs Date Time Temp Pulse Resp B/P Pulse Ox O2 Delivery O2 Flow Rate FiO2 12/25/16 16:01 62 12/25/16 14:28 97.7 12/25/16 12:58 61 18 100 Nasal Cannula 3.0 32 12/25/16 12:55 64 16 100 Nasal Cannula 2.0 28 12/25/16 12:00 97.7 61 18 127/64 98 Nasal Cannula 3.0 12/25/16 12:00 62 12/25/16 08:33 55 18 100 Nasal Cannula 3.0 32 12/25/16 08:25 60 16 100 Nasal Cannula 2.0 28 12/25/16 08:24 120/68 12/25/16 08:00 97.5 53 18 120/68 98 Nasal Cannula 2.0 12/25/16 08:00 55 12/25/16 07:28 99 Nasal Cannula 3.0 32 12/25/16 07:28 Nasal Cannula 3.0 32 12/25/16 04:37 55 12/25/16 04:00 98.5 81 17 130/81 97 Nasal Cannula 2.0 12/25/16 01:35 87 18 100 Nasal Cannula 3.0 32 12/25/16 01:25 58 17 98 Nasal Cannula 3.0 32 12/25/16 00:00 98.0 79 20 128/79 96 Nasal Cannula 3.0 12/24/16 23:36 61 12/24/16 20:07 78 12/24/16 20:00 97.7 78 20 139/79 98 Nasal Cannula 3.0 12/24/16 19:03 92 18 100 Nasal Cannula 3.0 32 12/24/16 18:56 86 18 100 Nasal Cannula 3.0 32 12/24/16 18:56 Nasal Cannula 3.0 32 12/24/16 18:56 100 Nasal Cannula 3.0 32 Intake and Output 12/24/16 12/25/16 19:00 07:00 Intake Total 860 ml 500 ml Output Total 400 ml 800 ml Balance 460 ml -300 ml Intake Oral 810 ml 300 ml IV Total 50 ml 200 ml Output Urine Total 400 ml 800 ml # Voids 1 # Bowel Movements 6 1 Laboratory Tests 12/25/16 03:25: White Blood Count 19.5H, Red Blood Count 4.21L, Hemoglobin 13.5L, Hematocrit 39.5L, Mean Corpuscular Volume 94, Mean Corpuscular Hemoglobin 32.0H, Mean Corpuscular Hemoglobin Concent 34.1, Red Cell Distribution Width 12.0, Platelet Count 144L, Mean Platelet Volume 9.1, Neutrophils (%) (Auto) , Lymphocytes (%) ( Auto) , Monocytes (%) (Auto) , Eosinophils (%) (Auto) , Basophils (%) (Auto) , Differential Total Cells Counted 100, Neutrophils % (Manual) 80H, Lymphocytes % (Manual) 17L, Monocytes % (Manual) 3, Eosinophils % (Manual) 0, Basophils % ( Manual) 0, Band Neutrophils 0, Platelet Estimate DecreasedL, Platelet Morphology Normal, Red Blood Cell Morphology Normal, Sodium Level 141, Potassium Level 3.0L, Chloride Level 96L, Carbon Dioxide Level 30, Anion Gap 15 , Blood Urea Nitrogen 15, Creatinine 0.8, Estimat Glomerular Filtration Rate > 60, Glucose Level 95, Calcium Level 9.2, Total Bilirubin 2.0H, Direct Bilirubin 0.3, Aspartate Amino Transf (AST/SGOT) 41H, Alanine Aminotransferase (ALT/SGPT) 32, Alkaline Phosphatase 96, Total Protein 7.2, Albumin 3.8, Globulin 3.4, Albumin/Globulin Ratio 1.1, Lipase 50 12/25/16 14:48: Troponin I < 0.30 Height (Feet): 5 Height (Inches): 5.00 Weight (Pounds): 186 Objective General: alert, cooperative, no distress, appears stated age Head: normocephalic, without obvious abnormality, atraumatic Eyes: conjunctivae/corneas clear. PERRL, EOM's intact Throat: lips, mucosa, and tongue normal. MMM Neck: supple, symmetrical, trachea midline, and no JVD Lungs: clear to auscultation bilaterally Heart: regular rate and rhythm, S1, S2 normal, no murmur, click, rub or gallop Abdomen: LLQ tenderness Extremities: extremities normal, atraumatic, no cyanosis or edema Pulses: 2+ and symmetric Skin: skin color, texture, turgor normal; no rashes or lesions Neurologic: grossly normal, no focal deficits MANUELITO BIRMINGHAM Dec 25, 2016 16:11
[2016-12-25 20:00] VITALS: BP 114/72
[2016-12-26] VITALS: BP 147/74
[2016-12-26] MEDS: TAZOBACTAM IVPB SCH ×3 (00:14→16:14)
[2016-12-26] MEDS: D5W IVPB SCH ×3 (00:14→16:14)
[2016-12-26] MEDS: PIPERACILLIN IVPB SCH ×3 (00:14→16:14)
[2016-12-26] MEDS: DuoNeb 0.5-3(2.5)mg/3ml neb HHN SCH ×4 (00:54→18:54)
[2016-12-26 04:00] VITALS: BP 121/72
[2016-12-26] MEDS: metroNIDAZOLE 500mg 100 ML IVPB SCH ×3 (05:25→22:00)
[2016-12-26 08:00] VITALS: BP 127/67
[2016-12-26] MEDS: Heparin 5000 units/ml inj SUBQ SCH ×2 (08:07→20:54)
[2016-12-26] MEDS: PredniSONE 20mg tab ORAL SCH (08:34)
[2016-12-26] MEDS: Lisinopril 10mg tab ORAL SCH (08:34)
[2016-12-26] MEDS: Thiamine 100mg tab ORAL SCH (08:34)
[2016-12-26] MEDS: Advair 250/50 Inhaler - 14 dose INH SCH ×2 (09:09→18:54)
--- NOTE | 2016-12-26 09:40 | Urology Progress Note ---
Assessment/Plan Assessment/Plan solid renal mass, r/o RCC hematuria proteinuria BPH hx renal cyst may need excision of mass at some point monitor clinically resume terazosin Subjective Allergies: Coded Allergies: No Known Allergies (Unverified , 12/22/16) Subjective feels fair Objective Last 24 Hour Vital Signs Date Time Temp Pulse Resp B/P Pulse Ox O2 Delivery O2 Flow Rate FiO2 12/26/16 09:11 65 18 100 Nasal Cannula 3.0 32 12/26/16 09:10 62 16 99 Nasal Cannula 3.0 32 12/26/16 08:34 127/67 12/26/16 08:00 96.8 67 20 127/67 99 Nasal Cannula 3.0 12/26/16 08:00 87 12/26/16 07:13 64 18 100 Nasal Cannula 3.0 32 12/26/16 07:10 99 Nasal Cannula 3.0 32 12/26/16 07:10 63 16 99 Nasal Cannula 3.0 32 12/26/16 07:10 Nasal Cannula 3.0 32 12/26/16 04:00 97.7 65 20 121/72 98 Nasal Cannula 3.0 12/26/16 04:00 68 12/26/16 00:56 80 18 98 Nasal Cannula 2.0 28 12/26/16 00:56 64 18 100 Nasal Cannula 3.0 32 12/26/16 00:00 97.5 69 20 147/74 97 Nasal Cannula 3.0 12/26/16 00:00 94 12/25/16 20:00 93 12/25/16 20:00 97.5 70 20 114/72 97 Nasal Cannula 3.0 12/25/16 18:50 79 18 100 Nasal Cannula 3.0 32 12/25/16 18:50 87 18 98 Nasal Cannula 2.0 28 12/25/16 18:50 Nasal Cannula 3.0 32 12/25/16 18:49 98 Nasal Cannula 3.0 32 12/25/16 16:01 62 12/25/16 16:00 97.5 63 20 110/65 95 Nasal Cannula 3.0 12/25/16 14:28 97.7 12/25/16 12:58 61 18 100 Nasal Cannula 3.0 32 12/25/16 12:55 64 16 100 Nasal Cannula 2.0 28 12/25/16 12:00 97.7 61 18 127/64 98 Nasal Cannula 3.0 7/15/17 12:00 62 Intake and Output 12/25/16 12/26/16 19:00 07:00 Intake Total 1420 ml 700 ml Output Total 775 ml 700 ml Balance 645 ml 0 ml Intake Oral 970 ml 500 ml IV Total 450 ml 200 ml Output Urine Total 775 ml 700 ml # Bowel Movements 2 Microbiology Date/Time Source Procedure Growth Status 12/23/16 19:45 Blood Blood Culture - Preliminary NO GROWTH AFTER 48 HOURS Resulted Current Medications Medications (Trade) Dose Ordered Sig/Joaquin Route PRN Reason Start Time Stop Time Status Last Admin Dose Admin Albuterol/ Ipratropium (DuoNeb 0.5-3(2.5)mg/3ml) 3 ml Q6HRT HHN 12/23/16 11:00 12/28/16 10:59 12/26/16 07:11 Clonidine HCl (Catapres) 0.1 mg Q4H PRN ORAL For High Blood Pressure 12/23/16 19:15 01/22/17 19:14 Folic Acid (Folate) 1 mg DAILY ORAL 12/23/16 11:00 01/22/17 10:59 12/26/16 08:34 Heparin Sodium (Porcine) (Heparin 5000 units/ml) 5,000 units EVERY 12 HOURS SUBQ 12/23/16 09:00 01/22/17 08:59 12/25/16 20:44 Lisinopril (Zestril) 10 mg DAILY ORAL 12/24/16 09:00 01/23/17 08:59 12/26/16 08:34 Lorazepam (Ativan 2mg/ml 1ml) 1 mg Q3H PRN IV For Anxiety 12/23/16 08:45 12/30/16 08:44 12/24/16 00:42 Metronidazole (Flagyl) 100 ml @ 100 mls/hr Q8HR IVPB 12/24/16 18:00 12/31/16 17:59 12/26/16 05:25 Morphine Sulfate (Morphine Sulfate) 2 mg Q4H PRN IVP For Pain 12/23/16 05:45 12/30/16 05:44 12/25/16 13:58 Ondansetron HCl (Zofran) 4 mg Q4H PRN IVP Nausea & Vomiting 12/23/16 07:45 01/22/17 07:44 12/23/16 12:50 Piperacillin Sod/ Tazobactam Sod 4.5 gm/Dextrose 100 ml @ 25 mls/hr Q8HR@0000,0800,1600 IVPB 12/24/16 16:00 12/31/16 15:59 12/26/16 08:00 Prednisone (predniSONE) 40 mg DAILY ORAL 12/23/16 11:00 01/22/17 10:59 12/26/16 08:34 Ranitidine HCl 150 mg 150 mg BEDTIME ORAL 12/24/16 21:00 01/23/17 20:59 12/25/16 20:43 Salmeterol Xinafoate/ Fluticasone (Advair 250/50 Diskus) 1 puffs BID INH 12/23/16 12:30 01/22/17 12:29 12/26/16 09:09 Thiamine HCl (Vitamin B1) 100 mg DAILY ORAL 12/23/16 11:00 01/22/17 10:59 12/26/16 08:34 Laboratory Tests 12/25/16 14:48: Troponin I < 0.30 Height (Feet): 5 Height (Inches): 5.00 Weight (Pounds): 186 Objective exam stable EDWIN HDEZ Dec 26, 2016 09:40
--- NOTE | 2016-12-26 09:54 | Pulmonology Progress Note ---
Assessment/Plan Assessment/Plan respiratory insufficiency copd exacerbation hypoxemia bronchitis vs pna dc if cleared by primary steroid taper mdi for home abx 5 more days no o2 necessary Subjective ROS Limited/Unobtainable: No Constitutional: Reports: no symptoms HEENT: Repors: no symptoms Cardiovascular: Reports: no symptoms Gastrointestinal/Abdominal: Reports: no symptoms Allergies: Coded Allergies: No Known Allergies (Unverified , 12/22/16) Subjective doing well on ra no wheezing no bipap last night no cp nv or fever no cough Objective Last 24 Hour Vital Signs Date Time Temp Pulse Resp B/P Pulse Ox O2 Delivery O2 Flow Rate FiO2 12/26/16 09:11 65 18 100 Nasal Cannula 3.0 32 12/26/16 09:10 62 16 99 Nasal Cannula 3.0 32 12/26/16 08:34 127/67 12/26/16 08:00 96.8 67 20 127/67 99 Nasal Cannula 3.0 12/26/16 08:00 87 12/26/16 07:13 64 18 100 Nasal Cannula 3.0 32 12/26/16 07:10 99 Nasal Cannula 3.0 32 12/26/16 07:10 63 16 99 Nasal Cannula 3.0 32 12/26/16 07:10 Nasal Cannula 3.0 32 12/26/16 04:00 97.7 65 20 121/72 98 Nasal Cannula 3.0 12/26/16 04:00 68 12/26/16 00:56 80 18 98 Nasal Cannula 2.0 28 12/26/16 00:56 64 18 100 Nasal Cannula 3.0 32 12/26/16 00:00 97.5 69 20 147/74 97 Nasal Cannula 3.0 12/26/16 00:00 94 12/25/16 20:00 93 12/25/16 20:00 97.5 70 20 114/72 97 Nasal Cannula 3.0 12/25/16 18:50 79 18 100 Nasal Cannula 3.0 32 12/25/16 18:50 87 18 98 Nasal Cannula 2.0 28 12/25/16 18:50 Nasal Cannula 3.0 32 12/25/16 18:49 98 Nasal Cannula 3.0 32 12/25/16 16:01 62 12/25/16 16:00 97.5 63 20 110/65 95 Nasal Cannula 3.0 12/25/16 14:28 97.7 12/25/16 12:58 61 18 100 Nasal Cannula 3.0 32 12/25/16 12:55 64 16 100 Nasal Cannula 2.0 28 12/25/16 12:00 97.7 61 18 127/64 98 Nasal Cannula 3.0 12/25/16 12:00 62 Intake and Output 12/25/16 12/26/16 19:00 07:00 Intake Total 1420 ml 700 ml Output Total 775 ml 700 ml Balance 645 ml 0 ml Intake Oral 970 ml 500 ml IV Total 450 ml 200 ml Output Urine Total 775 ml 700 ml # Bowel Movements 2 General Appearance: WD/WN Respiratory/Chest: lungs clear, normal breath sounds Cardiovascular: normal rate, regular rhythm Abdomen: normal bowel sounds, no organomegaly Genitourinary: normal external genitalia Extremities: no cyanosis Skin: no rash, no lesions 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 Anthracis Complete Laboratory Tests 12/25/16 14:48: Troponin I < 0.30 Current Medications Medications (Trade) Dose Ordered Sig/Joaquin Route PRN Reason Start Time Stop Time Status Last Admin Dose Admin Albuterol/ Ipratropium (DuoNeb 0.5-3(2.5)mg/3ml) 3 ml Q6HRT HHN 12/23/16 11:00 12/28/16 10:59 12/26/16 07:11 Clonidine HCl (Catapres) 0.1 mg Q4H PRN ORAL For High Blood Pressure 12/23/16 19:15 01/22/17 19:14 Folic Acid (Folate) 1 mg DAILY ORAL 12/23/16 11:00 01/22/17 10:59 12/26/16 08:34 Heparin Sodium (Porcine) (Heparin 5000 units/ml) 5,000 units EVERY 12 HOURS SUBQ 12/23/16 09:00 01/22/17 08:59 12/25/16 20:44 Lisinopril (Zestril) 10 mg DAILY ORAL 12/24/16 09:00 01/23/17 08:59 12/26/16 08:34 Lorazepam (Ativan 2mg/ml 1ml) 1 mg Q3H PRN IV For Anxiety 12/23/16 08:45 12/30/16 08:44 12/24/16 00:42 Metronidazole (Flagyl) 100 ml @ 100 mls/hr Q8HR IVPB 12/24/16 18:00 12/31/16 17:59 12/26/16 05:25 Morphine Sulfate (Morphine Sulfate) 2 mg Q4H PRN IVP For Pain 12/23/16 05:45 12/30/16 05:44 12/25/16 13:58 Ondansetron HCl (Zofran) 4 mg Q4H PRN IVP Nausea & Vomiting 12/23/16 07:45 01/22/17 07:44 12/23/16 12:50 Piperacillin Sod/ Tazobactam Sod 4.5 gm/Dextrose 100 ml @ 25 mls/hr Q8HR@0000,0800,1600 IVPB 12/24/16 16:00 12/31/16 15:59 12/26/16 08:00 Prednisone (predniSONE) 40 mg DAILY ORAL 12/23/16 11:00 01/22/17 10:59 12/26/16 08:34 Ranitidine HCl 150 mg 150 mg BEDTIME ORAL 12/24/16 21:00 01/23/17 20:59 12/25/16 20:43 Salmeterol Xinafoate/ Fluticasone (Advair 250/50 Diskus) 1 puffs BID INH 12/23/16 12:30 01/22/17 12:29 12/26/16 09:09 Terazosin HCl (Hytrin) 5 mg DAILY ORAL 12/26/16 10:00 01/25/17 09:59 Thiamine HCl (Vitamin B1) 100 mg DAILY ORAL 12/23/16 11:00 01/22/17 10:59 12/26/16 08:34 MICHAEL GRIMES DO Dec 26, 2016 09:54
[2016-12-26] MEDS ORDERED: NS 275ml ONE (10:37)
[2016-12-26] MEDS ORDERED: Tubing IV Secondary IV ONE ×2 (10:37→15:06)
--- NOTE | 2016-12-26 11:00 | General Progress Note ---
Assessment/Plan Problem List: (1) Acute on chronic diastolic (congestive) heart failure Assessment & Plan: Follow BNP Apprec cardiology f/u Echo shows diastolic dysfunction No evidence of ACS Consider diuresis ICD Codes: I50.33 - Acute on chronic diastolic (congestive) heart failure SNOMED: 06089986, 467727924 (2) Acute respiratory failure with hypoxia and hypercapnia Assessment & Plan: Cont steroids, nebs, advair Apprec Pulm input ICD Codes: J96.01 - Acute respiratory failure with hypoxia; J96.02 - Acute respiratory failure with hypercapnia SNOMED: 55835578, 83699127, 725729480 (3) Sepsis Assessment & Plan: Likely etiologies are pna +/- diverticulitis Cont IV abx per ID f/u cultures, as pt has bacillus bacteremia ICD Codes: A41.9 - Sepsis, unspecified organism SNOMED: 41789552 (4) Diverticulitis Assessment & Plan: Cont IV abx per ID GI eval noted Surgical evaluation appreciated ICD Codes: K57.92 - Diverticulitis of intestine, part unspecified, without perforation or abscess without bleeding SNOMED: 204795705 (5) Hypokalemia Assessment & Plan: Replete KCl Check Mag Check bmp daily ICD Codes: E87.6 - Hypokalemia SNOMED: 42576934 Subjective Date patient seen: Dec 26, 2016 Time patient seen: 10:59 Allergies: Coded Allergies: No Known Allergies (Unverified , 12/22/16) Subjective SOB and wheezing better, breathing better, still with abd pain but improved, no n/v and diarrhea, CT A/P shows diverticulitis, blood cx showing bacillus Objective Last 24 Hour Vital Signs Date Time Temp Pulse Resp B/P Pulse Ox O2 Delivery O2 Flow Rate FiO2 12/26/16 09:11 65 18 100 Nasal Cannula 3.0 32 12/26/16 09:10 62 16 99 Nasal Cannula 3.0 32 12/26/16 08:34 127/67 12/26/16 08:00 96.8 67 20 127/67 99 Nasal Cannula 3.0 12/26/16 08:00 87 12/26/16 07:13 64 18 100 Nasal Cannula 3.0 32 12/26/16 07:10 99 Nasal Cannula 3.0 32 12/26/16 07:10 63 16 99 Nasal Cannula 3.0 32 12/26/16 07:10 Nasal Cannula 3.0 32 12/26/16 04:00 97.7 65 20 121/72 98 Nasal Cannula 3.0 12/26/16 04:00 68 12/26/16 00:56 80 18 98 Nasal Cannula 2.0 28 12/26/16 00:56 64 18 100 Nasal Cannula 3.0 32 12/26/16 00:00 97.5 69 20 147/74 97 Nasal Cannula 3.0 12/26/16 00:00 94 12/25/16 20:00 93 12/25/16 20:00 97.5 70 20 114/72 97 Nasal Cannula 3.0 12/25/16 18:50 79 18 100 Nasal Cannula 3.0 32 12/25/16 18:50 87 18 98 Nasal Cannula 2.0 28 12/25/16 18:50 Nasal Cannula 3.0 32 12/25/16 18:49 98 Nasal Cannula 3.0 32 12/25/16 16:01 62 12/25/16 16:00 97.5 63 20 110/65 95 Nasal Cannula 3.0 12/25/16 14:28 97.7 12/25/16 12:58 61 18 100 Nasal Cannula 3.0 32 12/25/16 12:55 64 16 100 Nasal Cannula 2.0 28 12/25/16 12:00 97.7 61 18 127/64 98 Nasal Cannula 3.0 12/25/16 12:00 62 Intake and Output 12/25/16 12/26/16 19:00 07:00 Intake Total 1420 ml 700 ml Output Total 775 ml 700 ml Balance 645 ml 0 ml Intake Oral 970 ml 500 ml IV Total 450 ml 200 ml Output Urine Total 775 ml 700 ml # Bowel Movements 2 Laboratory Tests 12/25/16 14:48: Troponin I < 0.30 Height (Feet): 5 Height (Inches): 5.00 Weight (Pounds): 186 Objective General: alert, cooperative, no distress, appears stated age Head: normocephalic, without obvious abnormality, atraumatic Eyes: conjunctivae/corneas clear. PERRL, EOM's intact Throat: lips, mucosa, and tongue normal. MMM Neck: supple, symmetrical, trachea midline, and no JVD Lungs: clear to auscultation bilaterally Heart: regular rate and rhythm, S1, S2 normal, no murmur, click, rub or gallop Abdomen: LLQ tenderness Extremities: extremities normal, atraumatic, no cyanosis or edema Pulses: 2+ and symmetric Skin: skin color, texture, turgor normal; no rashes or lesions Neurologic: grossly normal, no focal deficits MANUELITO BIRMINGHAM Dec 26, 2016 11:00
[2016-12-26 12:00] VITALS: BP 134/62
--- NOTE | 2016-12-26 12:22 | General Progress Note ---
Progress Note Progress Note Afebrile, VSS. Pt is feeling better today, abdominal pain is decreased. Abdomen is soft, no guarding or tenderness. He appears to be responding to antibiotic therapy for his sigmoid diverticulitis. We will continue to monitor his progress. Claudio Taylor MD Dec 26, 2016 12:22
[2016-12-26 13:52] LABS: ANION GAP 14 (5-15); CALCIUM 8.9 mg/dL (8.6-10.2); CARBON DIOXIDE 27 mEQ/L (20-30); CHLORIDE 96 mEQ/L (98-107); CREATININE 0.9 mg/dL (0.7-1.2); GLOMERULAR FILTRATION RATE > 60 mL/min (>60); HEMOLYSIS 15; POTASSIUM 3.5 mEQ/L (3.4-4.9); SODIUM 137 mEQ/L (135-145)
[2016-12-26] MEDS ORDERED: Vancomycin 1.5 GM/D5W 250ML IVPB ONE (14:00)
--- NOTE | 2016-12-26 14:56 | Infectious Diseases Prog Note ---
Assessment/Plan Assessment/Plan ASSESSMENT AND PLAN: 1. acute diverticulitis with sepsis and leukocytosis - improved with iv zosyn and flagyl - blood cultures is gram + nora in aerobic bottle in 1/4 bottles which is likely contaminant and less likely pathogen - continue zosyn and flagyl for now - check surveillance blood cultures and labs - if continues to improve can discharge on po levofloxacin plus flaygl for one week - d/w microbiology 2. Upper respiratory infection, bronchitis, asthma, chronic obstructive pulmonary disease. Continue antibiotics and chest x-ray is negative. Rule out community-acquired pneumonia. We will get followup chest x-ray. 3. The patient has a history of hypertension. 4. Congestive heart failure. 5. Cardiomegaly. 6. Alcoholism. 7. Rhabdomyolysis. 8. Abnormal liver enzyme. 9. Elevated blood sugars. 10. Past medical history noted. 11. No allergies. 12. Case was discussed and communicated with Dr. Diane. 13. MAR was noted. 14. Notes were reviewed. 15. Continue treatment per primary consultants. 16. case d/w Dr. Diane Subjective Constitutional: Denies: fever HEENT: Denies: congestion Respiratory: Denies: shortness of breath Cardiovascular: Denies: chest pain Genitourinary: Denies: dysuria Neurologic: Denies: headache Skin: Denies: rash Musculoskeletal: Denies: stiffness Allergies: Coded Allergies: No Known Allergies (Unverified , 12/22/16) Objective Vital Signs Last 24 Hour Vital Signs Date Time Temp Pulse Resp B/P Pulse Ox O2 Delivery O2 Flow Rate FiO2 12/26/16 13:31 66 16 100 Nasal Cannula 3.0 32 12/26/16 13:26 64 16 99 Nasal Cannula 3.0 32 12/26/16 12:00 97.2 88 20 134/62 98 Nasal Cannula 3.0 12/26/16 12:00 99 12/26/16 09:11 65 18 100 Nasal Cannula 3.0 32 12/26/16 09:10 62 16 99 Nasal Cannula 3.0 32 12/26/16 08:34 127/67 12/26/16 08:00 96.8 67 20 127/67 99 Nasal Cannula 3.0 12/26/16 08:00 87 12/26/16 07:13 64 18 100 Nasal Cannula 3.0 32 12/26/16 07:10 99 Nasal Cannula 3.0 32 12/26/16 07:10 63 16 99 Nasal Cannula 3.0 32 12/26/16 07:10 Nasal Cannula 3.0 32 12/26/16 04:00 97.7 65 20 121/72 98 Nasal Cannula 3.0 12/26/16 04:00 68 12/26/16 00:56 80 18 98 Nasal Cannula 2.0 28 12/26/16 00:56 64 18 100 Nasal Cannula 3.0 32 12/26/16 00:00 97.5 69 20 147/74 97 Nasal Cannula 3.0 12/26/16 00:00 94 12/25/16 20:00 93 12/25/16 20:00 97.5 70 20 114/72 97 Nasal Cannula 3.0 12/25/16 18:50 79 18 100 Nasal Cannula 3.0 32 12/25/16 18:50 87 18 98 Nasal Cannula 2.0 28 12/25/16 18:50 Nasal Cannula 3.0 32 12/25/16 18:49 98 Nasal Cannula 3.0 32 12/25/16 16:01 62 12/25/16 16:00 97.5 63 20 110/65 95 Nasal Cannula 3.0 Height (Feet): 5 Height (Inches): 5.00 Weight (Pounds): 186 General Appearance: no acute distress HEENT: normocephalic, atraumatic, anicteric, mucous membranes moist, PERRL, EOMI, pharynx normal, supple, no JVD Respiratory/Chest: lungs clear, normal breath sounds, no respiratory distress Cardiovascular: normal rate, regular rhythm, no gallop/murmur, no JVD Abdomen: normal bowel sounds, no organomegaly, non distended Genitourinary: other - no sanz Extremities: no cyanosis Skin: no rash 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 Suspect findings represent acute diverticulitis, with possible fistulization between 2 or 3 adjacent to sigmoid loops. There is also extension of the process to the dome of the bladder with extraluminal gas and soft tissue abnormality consistent with microperforation, but no definite evidence of fistulization to the bladder lumen. No focal extra luminal fluid collection to suggest peridiverticular abscess demonstrated. The possibility of neoplasm in this area eroding into adjacent colon loops should also be considered and followup imaging after resolution of acute process is recommended. 4 cm solid right lower pole renal mass, highly suspicious for renal neoplasm CT scan of abdomen and pelvis: Fatty liver Nonspecific mildly prominent fluid-filled distal small bowel loops, could represent mild ileus.. No further followup necessary Evidence of prior cholecystectomy Bilateral renal cysts. Bilateral subcentimeter low-attenuation renal lesions, too small to characterize, most likely benign simple cysts Other findings as noted, including dependent posterior basilar pulmonary atelectatic changes, degenerative spondylosis, evidence of subcutaneous injections, small fat-containing umbilical hernia, small hiatal hernia. Chest x-ray - no consolidation Microbiology Date/Time Source Procedure Growth Status 12/23/16 19:45 Blood Blood Culture - Preliminary NO GROWTH AFTER 48 HOURS Resulted 12/23/16 19:30 Blood Blood Culture - Final Bacillus Sp Not B. Anthracis Complete 12/25/16 21:00 Stool Clostridium difficile Toxin Assay - Final Complete Labs Test 12/24/16 03:30 12/25/16 03:25 12/25/16 14:48 12/26/16 11:40 White Blood Count 21.9 K/UL (4.8-10.8) 19.5 K/UL (4.8-10.8) Red Blood Count 4.30 M/UL (4.70-6.10) 4.21 M/UL (4.70-6.10) Hemoglobin 13.7 G/DL (14.2-18.0) 13.5 G/DL (14.2-18.0) Hematocrit 40.3 % (42.0-52.0) 39.5 % (42.0-52.0) Mean Corpuscular Volume 94 FL (80-99) 94 FL (80-99) Mean Corpuscular Hemoglobin 31.8 PG (27.0-31.0) 32.0 PG (27.0-31.0) Mean Corpuscular Hemoglobin Concent 33.9 G/DL (32.0-36.0) 34.1 G/DL (32.0-36.0) Red Cell Distribution Width 11.6 % (11.6-14.8) 12.0 % (11.6-14.8) Platelet Count 179 K/UL (150-450) 144 K/UL (150-450) Mean Platelet Volume 8.0 FL (6.5-10.1) 9.1 FL (6.5-10.1) Neutrophils (%) (Auto) % (45.0-75.0) % (45.0-75.0) Lymphocytes (%) (Auto) % (20.0-45.0) % (20.0-45.0) Monocytes (%) (Auto) % (1.0-10.0) % (1.0-10.0) Eosinophils (%) (Auto) % (0.0-3.0) % (0.0-3.0) Basophils (%) (Auto) % (0.0-2.0) % (0.0-2.0) Differential Total Cells Counted 100 100 Neutrophils % (Manual) 80 % (45-75) 80 % (45-75) Lymphocytes % (Manual) 18 % (20-45) 17 % (20-45) Monocytes % (Manual) 2 % (1-10) 3 % (1-10) Eosinophils % (Manual) 0 % (0-3) 0 % (0-3) Basophils % (Manual) 0 % (0-2) 0 % (0-2) Band Neutrophils 0 % (0-8) 0 % (0-8) Platelet Estimate Adequate Decreased Platelet Morphology Normal Normal Red Blood Cell Morphology Normal Normal Sodium Level 138 mEQ/L (135-145) 141 mEQ/L (135-145) 137 mEQ/L (135-145) Potassium Level 3.1 mEQ/L (3.4-4.9) 3.0 mEQ/L (3.4-4.9) 3.5 mEQ/L (3.4-4.9) Chloride Level 95 mEQ/L (98-107) 96 mEQ/L (98-107) 96 mEQ/L (98-107) Carbon Dioxide Level 32 mEQ/L (20-30) 30 mEQ/L (20-30) 27 mEQ/L (20-30) Anion Gap 11 (5-15) 15 (5-15) 14 (5-15) Blood Urea Nitrogen 14 mg/dL (7-23) 15 mg/dL (7-23) 9 mg/dL (7-23) Creatinine 0.8 mg/dL (0.7-1.2) 0.8 mg/dL (0.7-1.2) 0.9 mg/dL (0.7-1.2) Estimat Glomerular Filtration Rate > 60 mL/min (>60) > 60 mL/min (>60) > 60 mL/min (>60) Glucose Level 131 mg/dL (74-106) 95 mg/dL (74-106) 140 mg/dL (74-106) Calcium Level 9.3 mg/dL (8.6-10.2) 9.2 mg/dL (8.6-10.2) 8.9 mg/dL (8.6-10.2) Total Bilirubin 2.1 mg/dL (0.0-1.2) 2.0 mg/dL (0.0-1.2) Direct Bilirubin 0.3 mg/dL (0.1-0.3) 0.3 mg/dL (0.1-0.3) Aspartate Amino Transf (AST/SGOT) 37 U/L (5-40) 41 U/L (5-40) Alanine Aminotransferase (ALT/SGPT) 24 U/L (3-41) 32 U/L (3-41) Alkaline Phosphatase 101 U/L (40-129) 96 U/L (40-129) Pro-B-Type Natriuretic Peptide 206 pg/mL (0-125) Total Protein 7.7 g/dL (6.6-8.7) 7.2 g/dL (6.6-8.7) Albumin 4.2 g/dL (3.5-5.2) 3.8 g/dL (3.5-5.2) Globulin 3.5 g/dL 3.4 g/dL Albumin/Globulin Ratio 1.2 (1.0-2.7) 1.1 (1.0-2.7) Thyroid Stimulating Hormone (TSH) 0.676 uIU/mL (0.300-4.500) Free Thyroxine 1.00 ng/dL (0.86-1.85) Lipase 50 U/L (< 60) Troponin I < 0.30 ng/mL (<=0.30) Magnesium Level 1.9 mg/dL (1.7-2.5) Laboratory Tests Test 12/25/16 14:48 12/26/16 11:40 Troponin I < 0.30 ng/mL (<=0.30) Sodium Level 137 mEQ/L (135-145) Potassium Level 3.5 mEQ/L (3.4-4.9) Chloride Level 96 mEQ/L (98-107) L Carbon Dioxide Level 27 mEQ/L (20-30) Anion Gap 14 (5-15) Blood Urea Nitrogen 9 mg/dL (7-23) Creatinine 0.9 mg/dL (0.7-1.2) Estimat Glomerular Filtration Rate > 60 mL/min (>60) Glucose Level 140 mg/dL (74-106) H Calcium Level 8.9 mg/dL (8.6-10.2) Magnesium Level 1.9 mg/dL (1.7-2.5) c.diff. - negative Current Medications Medications (Trade) Dose Ordered Sig/Joaquin Route PRN Reason Start Time Stop Time Status Last Admin Dose Admin Albuterol/ Ipratropium (DuoNeb 0.5-3(2.5)mg/3ml) 3 ml Q6HRT HHN 12/23/16 11:00 12/28/16 10:59 12/26/16 13:28 Clonidine HCl (Catapres) 0.1 mg Q4H PRN ORAL For High Blood Pressure 12/23/16 19:15 01/22/17 19:14 Folic Acid (Folate) 1 mg DAILY ORAL 12/23/16 11:00 01/22/17 10:59 12/26/16 08:34 Heparin Sodium (Porcine) (Heparin 5000 units/ml) 5,000 units EVERY 12 HOURS SUBQ 12/23/16 09:00 01/22/17 08:59 12/25/16 20:44 Lisinopril (Zestril) 10 mg DAILY ORAL 12/24/16 09:00 01/23/17 08:59 12/26/16 08:34 Lorazepam (Ativan 2mg/ml 1ml) 1 mg Q3H PRN IV For Anxiety 12/23/16 08:45 12/30/16 08:44 12/24/16 00:42 Metronidazole (Flagyl) 100 ml @ 100 mls/hr Q8HR IVPB 12/24/16 18:00 12/31/16 17:59 12/26/16 13:30 Morphine Sulfate (Morphine Sulfate) 2 mg Q4H PRN IVP For Pain 12/23/16 05:45 12/30/16 05:44 12/25/16 13:58 Ondansetron HCl (Zofran) 4 mg Q4H PRN IVP Nausea & Vomiting 12/23/16 07:45 01/22/17 07:44 12/23/16 12:50 Piperacillin Sod/ Tazobactam Sod 4.5 gm/Dextrose 100 ml @ 25 mls/hr Q8HR@0000,0800,1600 IVPB 12/24/16 16:00 12/31/16 15:59 12/26/16 08:00 Prednisone (predniSONE) 40 mg DAILY ORAL 12/23/16 11:00 01/22/17 10:59 12/26/16 08:34 Ranitidine HCl 150 mg 150 mg BEDTIME ORAL 12/24/16 21:00 01/23/17 20:59 12/25/16 20:43 Salmeterol Xinafoate/ Fluticasone (Advair 250/50 Diskus) 1 puffs BID INH 12/23/16 12:30 01/22/17 12:29 12/26/16 09:09 Terazosin HCl (Hytrin) 5 mg DAILY ORAL 12/26/16 10:00 01/25/17 09:59 Thiamine HCl (Vitamin B1) 100 mg DAILY ORAL 12/23/16 11:00 01/22/17 10:59 12/26/16 08:34 Vancomycin HCl 1 ea 1 ea DAILY PRN MISC Per rx protocol 12/26/16 12:45 01/25/17 12:44 Vancomycin HCl/ Dextrose 250 ml @ 125 mls/hr ONCE ONCE IVPB 12/26/16 14:00 12/26/16 15:59 12/26/16 14:00 Vancomycin HCl/ Dextrose (Vancomycin/D5W) 275 ml @ 183.708 mls/hr Q12H IVPB 12/27/16 02:00 12/31/16 13:59 DARLYN ROGERS Dec 26, 2016 14:56
[2016-12-26 16:00] VITALS: BP 105/65
--- NOTE | 2016-12-26 16:06 | Cardiac Electrophysiology PN ---
Assessment/Plan Assessment/Plan 1. Accelerated hypertension. Continue lisinopril 10 mg twice a day. Echocardiogram EF 55%. 2. Congestive heart failure hx. BNP is not very high and EF 55%. 3. Chest pain. Atypical. ECG normal. Troponin was negative x4 4. History of heavy alcohol use. 5. Sepsis, diverticulitis, gram + nora bacteremia, leukocytosis On abx per Dr Gerard CASTORENA RN Subjective Subjective Comfortable in NAD.No further chest pain. ECG was completely normal.No arrhythmias. DC planning on Tuesday. Objective Last 24 Hour Vital Signs Date Time Temp Pulse Resp B/P Pulse Ox O2 Delivery O2 Flow Rate FiO2 12/26/16 13:31 66 16 100 Nasal Cannula 3.0 32 12/26/16 13:26 64 16 99 Nasal Cannula 3.0 32 12/26/16 12:00 97.2 88 20 134/62 98 Nasal Cannula 3.0 12/26/16 12:00 99 12/26/16 09:11 65 18 100 Nasal Cannula 3.0 32 12/26/16 09:10 62 16 99 Nasal Cannula 3.0 32 12/26/16 08:34 127/67 12/26/16 08:00 96.8 67 20 127/67 99 Nasal Cannula 3.0 12/26/16 08:00 87 12/26/16 07:13 64 18 100 Nasal Cannula 3.0 32 12/26/16 07:10 99 Nasal Cannula 3.0 32 12/26/16 07:10 63 16 99 Nasal Cannula 3.0 32 12/26/16 07:10 Nasal Cannula 3.0 32 12/26/16 04:00 97.7 65 20 121/72 98 Nasal Cannula 3.0 12/26/16 04:00 68 12/26/16 00:56 80 18 98 Nasal Cannula 2.0 28 12/26/16 00:56 64 18 100 Nasal Cannula 3.0 32 12/26/16 00:00 97.5 69 20 147/74 97 Nasal Cannula 3.0 12/26/16 00:00 94 12/25/16 20:00 93 12/25/16 20:00 97.5 70 20 114/72 97 Nasal Cannula 3.0 12/25/16 18:50 79 18 100 Nasal Cannula 3.0 32 12/25/16 18:50 87 18 98 Nasal Cannula 2.0 28 12/25/16 18:50 Nasal Cannula 3.0 32 12/25/16 18:49 98 Nasal Cannula 3.0 32 Intake and Output 12/25/16 12/26/16 19:00 07:00 Intake Total 1420 ml 700 ml Output Total 775 ml 700 ml Balance 645 ml 0 ml Intake Oral 970 ml 500 ml IV Total 450 ml 200 ml Output Urine Total 775 ml 700 ml # Bowel Movements 2 Laboratory Tests Test 12/26/16 11:40 Sodium Level 137 mEQ/L (135-145) Potassium Level 3.5 mEQ/L (3.4-4.9) Chloride Level 96 mEQ/L (98-107) L Carbon Dioxide Level 27 mEQ/L (20-30) Anion Gap 14 (5-15) Blood Urea Nitrogen 9 mg/dL (7-23) Creatinine 0.9 mg/dL (0.7-1.2) Estimat Glomerular Filtration Rate > 60 mL/min (>60) Glucose Level 140 mg/dL (74-106) H Calcium Level 8.9 mg/dL (8.6-10.2) Magnesium Level 1.9 mg/dL (1.7-2.5) Microbiology Date/Time Source Procedure Growth Status 12/23/16 19:45 Blood Blood Culture - Preliminary NO GROWTH AFTER 48 HOURS Resulted 12/23/16 19:30 Blood Blood Culture - Final Bacillus Sp Not B. Anthracis Complete 12/25/16 21:00 Stool Clostridium difficile Toxin Assay - Final Complete Objective HEAD AND NECK: Shows no JVD. LUNGS: Decreased breath sounds. CARDIOVASCULAR: Regular S1 and S2 with no gallop. ABDOMEN: Soft. EXTREMITIES: 1+ pitting edema. CHARLEE MARION Dec 26, 2016 16:06
--- NOTE | 2016-12-26 16:08 | General Progress Note ---
Assessment/Plan Assessment/Plan 1. Renal mass was noted on CAT scan that is approximately 4 cm in size, with benign simple cyst as well, well attenuated. We will recommend to evaluate Bosniak score, seek urology consult and may require surveillance. Recommend either rescanning the mass in 6 to 12 months versus surgical excision. Please consult Urology. ---> consultation is pending 2. Leukocytosis which is very mild. ---> down trending 3. Respiratory distress with shortness of breath. 4. Intermittent abdominal pain. 5. Acute diverticulitis microperforation. 6. Hyperglycemia. 7. Discussed with staff. 8. I greatly appreciate consultation. Subjective Date patient seen: Dec 25, 2016 Constitutional: Reports: no symptoms HEENT: Reports: no symptoms Cardiovascular: Reports: no symptoms Respiratory: Reports: no symptoms Gastrointestinal/Abdominal: Reports: no symptoms Genitourinary: Reports: no symptoms Neurologic/Psychiatric: Reports: no symptoms Endocrine: Reports: no symptoms Hematologic/Lymphatic: Reports: anemia Allergies: Coded Allergies: No Known Allergies (Unverified , 12/22/16) Subjective still has abd pain, some SOB Objective Last 24 Hour Vital Signs Date Time Temp Pulse Resp B/P Pulse Ox O2 Delivery O2 Flow Rate FiO2 12/26/16 13:31 66 16 100 Nasal Cannula 3.0 32 12/26/16 13:26 64 16 99 Nasal Cannula 3.0 32 12/26/16 12:00 97.2 88 20 134/62 98 Nasal Cannula 3.0 12/26/16 12:00 99 12/26/16 09:11 65 18 100 Nasal Cannula 3.0 32 12/26/16 09:10 62 16 99 Nasal Cannula 3.0 32 12/26/16 08:34 127/67 12/26/16 08:00 96.8 67 20 127/67 99 Nasal Cannula 3.0 12/26/16 08:00 87 12/26/16 07:13 64 18 100 Nasal Cannula 3.0 32 12/26/16 07:10 99 Nasal Cannula 3.0 32 12/26/16 07:10 63 16 99 Nasal Cannula 3.0 32 12/26/16 07:10 Nasal Cannula 3.0 32 12/26/16 04:00 97.7 65 20 121/72 98 Nasal Cannula 3.0 12/26/16 04:00 68 12/26/16 00:56 80 18 98 Nasal Cannula 2.0 28 12/26/16 00:56 64 18 100 Nasal Cannula 3.0 32 12/26/16 00:00 97.5 69 20 147/74 97 Nasal Cannula 3.0 12/26/16 00:00 94 12/25/16 20:00 93 12/25/16 20:00 97.5 70 20 114/72 97 Nasal Cannula 3.0 12/25/16 18:50 79 18 100 Nasal Cannula 3.0 32 12/25/16 18:50 87 18 98 Nasal Cannula 2.0 28 12/25/16 18:50 Nasal Cannula 3.0 32 12/25/16 18:49 98 Nasal Cannula 3.0 32 Intake and Output 12/25/16 12/26/16 19:00 07:00 Intake Total 1420 ml 700 ml Output Total 775 ml 700 ml Balance 645 ml 0 ml Intake Oral 970 ml 500 ml IV Total 450 ml 200 ml Output Urine Total 775 ml 700 ml # Bowel Movements 2 Laboratory Tests 12/26/16 11:40: Sodium Level 137, Potassium Level 3.5, Chloride Level 96L, Carbon Dioxide Level 27, Anion Gap 14, Blood Urea Nitrogen 9, Creatinine 0.9, Estimat Glomerular Filtration Rate > 60, Glucose Level 140H, Calcium Level 8.9, Magnesium Level 1.9 Height (Feet): 5 Height (Inches): 5.00 Weight (Pounds): 186 General Appearance: no apparent distress EENT: normal ENT inspection Neck: normal alignment, abnormal alignment Cardiovascular: normal peripheral pulses Respiratory/Chest: chest wall non-tender Abdomen: normal bowel sounds Edema: mild edema Bassam Uribe Dec 26, 2016 16:08
--- NOTE | 2016-12-26 16:11 | General Progress Note ---
Assessment/Plan Assessment/Plan 1. Renal mass was noted on CAT scan that is approximately 4 cm in size, with benign simple cyst as well, well attenuated. We will recommend to evaluate Bosniak score, seek urology consult and may require surveillance. Recommend either rescanning the mass in 6 to 12 months versus surgical excision. Please consult Urology. ---> recommends excision of mass at some point, monitor for now ---> resume terazosin 2. Leukocytosis which is very mild. ---> down trending 3. Respiratory distress with shortness of breath. 4. Intermittent abdominal pain. 5. Acute diverticulitis microperforation. 6. Hyperglycemia. 7. Discussed with staff. 8. I greatly appreciate consultation. Subjective Constitutional: Reports: no symptoms HEENT: Reports: no symptoms Cardiovascular: Reports: no symptoms Respiratory: Reports: no symptoms Gastrointestinal/Abdominal: Reports: no symptoms Genitourinary: Reports: no symptoms Neurologic/Psychiatric: Reports: no symptoms Endocrine: Reports: no symptoms Hematologic/Lymphatic: Reports: anemia Allergies: Coded Allergies: No Known Allergies (Unverified , 12/22/16) Subjective says he feels better today, no events overnight, seen by urologist Objective Last 24 Hour Vital Signs Date Time Temp Pulse Resp B/P Pulse Ox O2 Delivery O2 Flow Rate FiO2 12/26/16 13:31 66 16 100 Nasal Cannula 3.0 32 12/26/16 13:26 64 16 99 Nasal Cannula 3.0 32 12/26/16 12:00 97.2 88 20 134/62 98 Nasal Cannula 3.0 12/26/16 12:00 99 12/26/16 09:11 65 18 100 Nasal Cannula 3.0 32 12/26/16 09:10 62 16 99 Nasal Cannula 3.0 32 12/26/16 08:34 127/67 12/26/16 08:00 96.8 67 20 127/67 99 Nasal Cannula 3.0 12/26/16 08:00 87 12/26/16 07:13 64 18 100 Nasal Cannula 3.0 32 12/26/16 07:10 99 Nasal Cannula 3.0 32 12/26/16 07:10 63 16 99 Nasal Cannula 3.0 32 12/26/16 07:10 Nasal Cannula 3.0 32 12/26/16 04:00 97.7 65 20 121/72 98 Nasal Cannula 3.0 12/26/16 04:00 68 12/26/16 00:56 80 18 98 Nasal Cannula 2.0 28 12/26/16 00:56 64 18 100 Nasal Cannula 3.0 32 12/26/16 00:00 97.5 69 20 147/74 97 Nasal Cannula 3.0 12/26/16 00:00 94 12/25/16 20:00 93 12/25/16 20:00 97.5 70 20 114/72 97 Nasal Cannula 3.0 12/25/16 18:50 79 18 100 Nasal Cannula 3.0 32 12/25/16 18:50 87 18 98 Nasal Cannula 2.0 28 12/25/16 18:50 Nasal Cannula 3.0 32 12/25/16 18:49 98 Nasal Cannula 3.0 32 Intake and Output 12/25/16 12/26/16 19:00 07:00 Intake Total 1420 ml 700 ml Output Total 775 ml 700 ml Balance 645 ml 0 ml Intake Oral 970 ml 500 ml IV Total 450 ml 200 ml Output Urine Total 775 ml 700 ml # Bowel Movements 2 Laboratory Tests 12/26/16 11:40: Sodium Level 137, Potassium Level 3.5, Chloride Level 96L, Carbon Dioxide Level 27, Anion Gap 14, Blood Urea Nitrogen 9, Creatinine 0.9, Estimat Glomerular Filtration Rate > 60, Glucose Level 140H, Calcium Level 8.9, Magnesium Level 1.9 Height (Feet): 5 Height (Inches): 5.00 Weight (Pounds): 186 General Appearance: no apparent distress EENT: normal ENT inspection Neck: normal alignment Cardiovascular: normal peripheral pulses Respiratory/Chest: chest wall non-tender Extremities: non-tender 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
[2016-12-26 20:00] VITALS: BP 121/74
[2016-12-27 00:19] VITALS: BP 140/109
--- NOTE | 2016-12-27 01:00 | Consultation ---
DATE OF CONSULTATION: 12/25/2016 CONSULTING PHYSICIAN: Rajan Lincoln M.D. REFERRING PHYSICIAN: Eugenio Diane M.D. REASON FOR CONSULTATION: Evaluation of renal mass. HISTORY OF PRESENT ILLNESS: This is a 66-year-old male, he was admitted to the hospital, because of CHF and COPD exacerbation. He was noted to have possible diverticulitis. He is on antibiotics. He had a workup including a CT scan, which showed a renal mass. Urology has been requested. Of note, the patient is followed by an outside urologist, . He has a history of BPH, he has been on terazosin 5 mg. He states that he is aware of the renal mass and monitored as an outpatient. PAST MEDICAL HISTORY: Otherwise significant for above, hypertension, and congestive heart failure. PAST SURGICAL HISTORY: Not known. MEDICATIONS: Current medication list in the hospital was reviewed. He is on Zantac, Flagyl, Zosyn, Restoril, Catapres, folate, prednisone, and morphine. ALLERGIES: No known drug allergies. SOCIAL HISTORY: He is currently a nonsmoker. FAMILY HISTORY: Noncontributory. REVIEW OF SYSTEMS: As above. PHYSICAL EXAMINATION: GENERAL: This is a well-developed and well-nourished male, in no acute distress. VITAL SIGNS: Temperature is is 97.5 degrees, blood pressure 110/65, pulse 63, and respirations 20. HEENT: Atraumatic and normocephalic. NECK: Supple. ABDOMEN: Soft. BACK: No CVA tenderness. EXTREMITIES: No clubbing or cyanosis. LABORATORY DATA: His UA showed 3+ protein and 3+ blood. White count is 19.5 and hemoglobin is 13.5. His BUN is 16 and creatinine 0.8. DIAGNOSTIC IMAGING STUDIES: The patient had a CT scan of the abdomen and pelvis, there was mention of probable diverticulitis with some fistulization. There was some involvement of the dome of the bladder, but no obvious fistulas the bladder. There was a mention of a 4 cm solid right lower pole renal mass and renal cyst. IMPRESSION: 1. Solid renal mass, which is concerning for renal cell carcinoma. 2. Microhematuria. 3. Proteinuria. 4. Benign prostatic hypertrophy history. 5. Renal cyst. PLAN AND DISCUSSION: The patient again does have a renal mass that is solid is concerning for malignancy. He states that he is aware of the mass. He is followed by an outside urologist. At some point, he may need to have a nephrectomy or partial nephrectomy versus close monitoring. He is to continue with antibiotics as ordered for his diverticulitis. There is apparently some irritation of the dome of the bladder without obvious fistula. He will be monitored closely. We will consider resuming his terazosin. Thank you for this consultation. Rajan Lincoln M.D. DR: CHAY JOB#: [id number] CC: NIALL
[2016-12-27] MEDS: DuoNeb 0.5-3(2.5)mg/3ml neb HHN SCH ×3 (01:10→13:23)
[2016-12-27] MEDS ORDERED: Vancomycin 1gm/D5W 275ml IVPB SCH ×2 (02:00)
[2016-12-27 04:00] VITALS: BP 131/89
[2016-12-27 04:27] LABS: MEAN CORPUSCULAR HEMOGLOBIN 31.4 PG (27.0-31.0); MEAN CORPUSCULAR HGB CONC 33.3 G/DL (32.0-36.0); MEAN CORPUSCULAR VOLUME 94 FL (80-99); PLATELET COUNT 114 K/UL (150-450); RED BLOOD COUNT 4.08 M/UL (4.70-6.10); RED CELL DISTRIBUTION WIDTH 12.5 % (11.6-14.8); WHITE BLOOD COUNT 19.6 K/UL (4.8-10.8)
[2016-12-27 04:36] LABS: ANION GAP 15 (5-15); CALCIUM 9.1 mg/dL (8.6-10.2); CARBON DIOXIDE 27 mEQ/L (20-30); CHLORIDE 99 mEQ/L (98-107); CREATININE 0.9 mg/dL (0.7-1.2); GLOMERULAR FILTRATION RATE > 60 mL/min (>60); HEMOLYSIS 2; POTASSIUM 3.3 mEQ/L (3.4-4.9); SODIUM 141 mEQ/L (135-145)
[2016-12-27] MEDS: Morphine Sulfate 2mg/ml Inj IVP PRN (06:23)
[2016-12-27] MEDS: metroNIDAZOLE 500mg 100 ML IVPB SCH (06:24)
[2016-12-27 07:21] LABS: BAND NEUTROPHILS % (MANUAL) 0 % (0-8); BASOPHILS % (MANUAL) 0 % (0-2); EOSINOPHILS % (MANUAL) 1 % (0-3); LYMPHOCYTES % (MANUAL) 13 % (20-45); NEUTROPHILS % (MANUAL) 80 % (45-75); PLATELET ESTIMATE DECREASED; PLATELET MORPHOLOGY NORMAL; TOTAL CELLS COUNTED 100
[2016-12-27 07:22] LABS: HYPOCHROMASIA 1+
[2016-12-27] MEDS: Heparin 5000 units/ml inj SUBQ SCH (07:54)
[2016-12-27 08:00] VITALS: BP 125/77
[2016-12-27] MEDS: D5W IVPB SCH ×4 (08:19→15:03)
[2016-12-27] MEDS: TAZOBACTAM IVPB SCH ×4 (08:19→15:03)
[2016-12-27] MEDS: Thiamine 100mg tab ORAL SCH (08:19)
[2016-12-27] MEDS: Lisinopril 10mg tab ORAL SCH (08:19)
[2016-12-27] MEDS: PIPERACILLIN IVPB SCH ×4 (08:19→15:03)
[2016-12-27] MEDS: PredniSONE 20mg tab ORAL SCH (08:20)
--- NOTE | 2016-12-27 08:54 | General Surgery Progress Note ---
General Surgery-Progress Note Subjective Symptoms: improved, pain absent, tolerating diet, passing flatus, BM Additional Comments patient seen and examined at bedside. no acute events. doing much better. pain resolved. no n/v/f/c. mild diarrhea. Objective Last 24 Hour Vital Signs Date Time Temp Pulse Resp B/P Pulse Ox O2 Delivery O2 Flow Rate FiO2 12/27/16 08:19 125/77 12/27/16 08:00 97.3 72 20 125/77 98 Room Air 2.0 12/27/16 07:20 64 18 100 Nasal Cannula 2.0 28 12/27/16 07:19 Nasal Cannula 2.0 28 12/27/16 07:18 63 18 100 Nasal Cannula 2.0 28 12/27/16 07:18 100 Nasal Cannula 2.0 28 12/27/16 06:58 97.6 12/27/16 04:00 66 12/27/16 04:00 97.6 69 16 131/89 98 Nasal Cannula 2.0 12/27/16 01:21 98 18 99 Nasal Cannula 2.0 28 12/27/16 01:10 89 18 97 Room Air 12/27/16 00:19 97.9 102 14 140/109 98 Nasal Cannula 2.0 12/27/16 00:00 75 12/26/16 20:00 95.5 101 18 121/74 95 Nasal Cannula 2.0 12/26/16 20:00 102 12/26/16 19:04 98 18 99 Nasal Cannula 2.0 28 12/26/16 18:55 92 18 98 Nasal Cannula 2.0 28 12/26/16 18:53 98 Nasal Cannula 2.0 28 12/26/16 18:53 Nasal Cannula 2.0 28 12/26/16 16:00 122 12/26/16 16:00 97.8 95 20 105/65 99 Nasal Cannula 3.0 12/26/16 13:31 66 16 100 Nasal Cannula 3.0 32 12/26/16 13:26 64 16 99 Nasal Cannula 3.0 32 12/26/16 12:00 97.2 88 20 134/62 98 Nasal Cannula 3.0 12/26/16 12:00 99 12/26/16 09:11 65 18 100 Nasal Cannula 3.0 32 12/26/16 09:10 62 16 99 Nasal Cannula 3.0 32 I&O Intake and Output 12/26/16 12/27/16 19:00 07:00 Intake Total 1600 ml 225 ml Output Total 1800 ml 775 ml Balance -200 ml -550 ml Intake Oral 1100 ml IV Total 500 ml 225 ml Output Urine Total 1800 ml 775 ml Cardiovascular: RSR Respiratory: clear Abdomen: soft, flat, non-tender, present bowel sounds Extremities: no edema, no tenderness Laboratory Tests Test 12/26/16 11:40 12/27/16 03:00 Sodium Level 137 mEQ/L (135-145) 141 mEQ/L (135-145) Potassium Level 3.5 mEQ/L (3.4-4.9) 3.3 mEQ/L (3.4-4.9) L Chloride Level 96 mEQ/L (98-107) L 99 mEQ/L (98-107) Carbon Dioxide Level 27 mEQ/L (20-30) 27 mEQ/L (20-30) Anion Gap 14 (5-15) 15 (5-15) Blood Urea Nitrogen 9 mg/dL (7-23) 9 mg/dL (7-23) Creatinine 0.9 mg/dL (0.7-1.2) 0.9 mg/dL (0.7-1.2) Estimat Glomerular Filtration Rate > 60 mL/min (>60) > 60 mL/min (>60) Glucose Level 140 mg/dL (74-106) H 88 mg/dL (74-106) Calcium Level 8.9 mg/dL (8.6-10.2) 9.1 mg/dL (8.6-10.2) Magnesium Level 1.9 mg/dL (1.7-2.5) White Blood Count 19.6 K/UL (4.8-10.8) H Red Blood Count 4.08 M/UL (4.70-6.10) L Hemoglobin 12.8 G/DL (14.2-18.0) L Hematocrit 38.5 % (42.0-52.0) L Mean Corpuscular Volume 94 FL (80-99) Mean Corpuscular Hemoglobin 31.4 PG (27.0-31.0) H Mean Corpuscular Hemoglobin Concent 33.3 G/DL (32.0-36.0) Red Cell Distribution Width 12.5 % (11.6-14.8) Platelet Count 114 K/UL (150-450) L Mean Platelet Volume 9.0 FL (6.5-10.1) Neutrophils (%) (Auto) % (45.0-75.0) Lymphocytes (%) (Auto) % (20.0-45.0) Monocytes (%) (Auto) % (1.0-10.0) Eosinophils (%) (Auto) % (0.0-3.0) Basophils (%) (Auto) % (0.0-2.0) Differential Total Cells Counted 100 Neutrophils % (Manual) 80 % (45-75) H Lymphocytes % (Manual) 13 % (20-45) L Monocytes % (Manual) 6 % (1-10) Eosinophils % (Manual) 1 % (0-3) Basophils % (Manual) 0 % (0-2) Band Neutrophils 0 % (0-8) Platelet Estimate Decreased L Platelet Morphology Normal Hypochromasia 1+ Plan Problems: (1) Diverticulitis Assessment & Plan: 56M with acute diverticulitis complicated by small localized microperforation. CT scan reviewed and no free air, abscess, or free fluid noted. Afebrile, HD stable, leukocytosis, exam benign. -No acute surgical intervention -Will monitor with medical management of acute diverticulitis -Diet as tolerated -ABX -Trend WBC Malick Simon Dec 27, 2016 08:54
[2016-12-27] MEDS: Advair 250/50 Inhaler - 14 dose INH SCH (09:24)
[2016-12-27 12:00] VITALS: BP 118/61
--- NOTE | 2016-12-27 12:22 | Urology Progress Note ---
Assessment/Plan Assessment/Plan solid renal mass, r/o RCC hematuria proteinuria BPH hx renal cyst may need excision of mass at some point monitor clinically terazosin resumed Subjective Allergies: Coded Allergies: No Known Allergies (Unverified , 12/22/16) Subjective feels fair Objective Last 24 Hour Vital Signs Date Time Temp Pulse Resp B/P Pulse Ox O2 Delivery O2 Flow Rate FiO2 12/27/16 09:27 63 16 99 Room Air 28 12/27/16 09:26 63 18 98 Room Air 12/27/16 08:19 125/77 12/27/16 08:00 97.3 72 20 125/77 98 Room Air 2.0 12/27/16 08:00 77 12/27/16 07:20 64 18 100 Nasal Cannula 2.0 28 12/27/16 07:19 Nasal Cannula 2.0 28 12/27/16 07:18 63 18 100 Nasal Cannula 2.0 28 12/27/16 07:18 100 Nasal Cannula 2.0 28 12/27/16 06:58 97.6 12/27/16 04:00 66 12/27/16 04:00 97.6 69 16 131/89 98 Nasal Cannula 2.0 12/27/16 01:21 98 18 99 Nasal Cannula 2.0 28 12/27/16 01:10 89 18 97 Room Air 12/27/16 00:19 97.9 102 14 140/109 98 Nasal Cannula 2.0 12/27/16 00:00 75 12/26/16 20:00 95.5 101 18 121/74 95 Nasal Cannula 2.0 12/26/16 20:00 102 12/26/16 19:04 98 18 99 Nasal Cannula 2.0 28 12/26/16 18:55 92 18 98 Nasal Cannula 2.0 28 12/26/16 18:53 98 Nasal Cannula 2.0 28 12/26/16 18:53 Nasal Cannula 2.0 28 12/26/16 16:00 122 12/26/16 16:00 97.8 95 20 105/65 99 Nasal Cannula 3.0 12/26/16 13:31 66 16 100 Nasal Cannula 3.0 32 12/26/16 13:26 64 16 99 Nasal Cannula 3.0 32 Intake and Output 12/26/16 12/27/16 19:00 07:00 Intake Total 1600 ml 225 ml Output Total 1800 ml 775 ml Balance -200 ml -550 ml Intake Oral 1100 ml IV Total 500 ml 225 ml Output Urine Total 1800 ml 775 ml Microbiology Date/Time Source Procedure Growth Status 12/26/16 03:45 Blood Blood Culture - Preliminary NO GROWTH AFTER 24 HOURS Resulted 12/25/16 21:00 Stool Clostridium difficile Toxin Assay - Final Complete Current Medications Medications (Trade) Dose Ordered Sig/Joaquin Route PRN Reason Start Time Stop Time Status Last Admin Dose Admin Albuterol/ Ipratropium (DuoNeb 0.5-3(2.5)mg/3ml) 3 ml Q6HRT HHN 12/23/16 11:00 12/28/16 10:59 12/27/16 07:18 Clonidine HCl (Catapres) 0.1 mg Q4H PRN ORAL For High Blood Pressure 12/23/16 19:15 01/22/17 19:14 Folic Acid (Folate) 1 mg DAILY ORAL 12/23/16 11:00 01/22/17 10:59 12/27/16 08:20 Heparin Sodium (Porcine) (Heparin 5000 units/ml) 5,000 units EVERY 12 HOURS SUBQ 12/23/16 09:00 01/22/17 08:59 12/26/16 20:54 Lisinopril (Zestril) 10 mg DAILY ORAL 12/24/16 09:00 01/23/17 08:59 12/27/16 08:19 Lorazepam (Ativan 2mg/ml 1ml) 1 mg Q3H PRN IV For Anxiety 12/23/16 08:45 12/30/16 08:44 12/24/16 00:42 Metronidazole (Flagyl) 100 ml @ 100 mls/hr Q8HR IVPB 12/24/16 18:00 12/31/16 17:59 12/27/16 06:24 Morphine Sulfate (Morphine Sulfate) 2 mg Q4H PRN IVP For Pain 12/23/16 05:45 12/30/16 05:44 12/27/16 06:23 Ondansetron HCl (Zofran) 4 mg Q4H PRN IVP Nausea & Vomiting 12/23/16 07:45 01/22/17 07:44 12/23/16 12:50 Piperacillin Sod/ Tazobactam Sod 4.5 gm/Dextrose 100 ml @ 25 mls/hr Q8HR@0000,0800,1600 IVPB 12/24/16 16:00 12/31/16 15:59 12/27/16 08:19 Prednisone (predniSONE) 40 mg DAILY ORAL 12/23/16 11:00 01/22/17 10:59 12/27/16 08:20 Ranitidine HCl 150 mg 150 mg BEDTIME ORAL 12/24/16 21:00 01/23/17 20:59 12/26/16 20:53 Salmeterol Xinafoate/ Fluticasone (Advair 250/50 Diskus) 1 puffs BID INH 12/23/16 12:30 01/22/17 12:29 12/27/16 09:24 Terazosin HCl (Hytrin) 5 mg DAILY ORAL 12/26/16 10:00 01/25/17 09:59 12/27/16 08:19 Thiamine HCl (Vitamin B1) 100 mg DAILY ORAL 12/23/16 11:00 01/22/17 10:59 12/27/16 08:19 Laboratory Tests 12/27/16 03:00: White Blood Count 19.6H, Red Blood Count 4.08L, Hemoglobin 12.8L, Hematocrit 38.5L, Mean Corpuscular Volume 94, Mean Corpuscular Hemoglobin 31.4H, Mean Corpuscular Hemoglobin Concent 33.3, Red Cell Distribution Width 12.5, Platelet Count 114L, Mean Platelet Volume 9.0, Neutrophils (%) (Auto) , Lymphocytes (%) ( Auto) , Monocytes (%) (Auto) , Eosinophils (%) (Auto) , Basophils (%) (Auto) , Differential Total Cells Counted 100, Neutrophils % (Manual) 80H, Lymphocytes % (Manual) 13L, Monocytes % (Manual) 6, Eosinophils % (Manual) 1, Basophils % ( Manual) 0, Band Neutrophils 0, Platelet Estimate DecreasedL, Platelet Morphology Normal, Hypochromasia 1+, Sodium Level 141, Potassium Level 3.3L, Chloride Level 99, Carbon Dioxide Level 27, Anion Gap 15, Blood Urea Nitrogen 9 , Creatinine 0.9, Estimat Glomerular Filtration Rate > 60, Glucose Level 88, Calcium Level 9.1 Height (Feet): 5 Height (Inches): 5.00 Weight (Pounds): 186 Objective exam stable BAMSHAD,EDWIN Dec 27, 2016 12:22
--- NOTE | 2016-12-27 13:32 | GI Progress Note ---
Assessment/Plan Problems: (1) Diverticulitis ICD Codes: K57.92 - Diverticulitis of intestine, part unspecified, without perforation or abscess without bleeding SNOMED: 992343066 (2) Abdominal distension ICD Codes: R14.0 - Abdominal distension (gaseous) SNOMED: 51849276 (3) Sepsis ICD Codes: A41.9 - Sepsis, unspecified organism SNOMED: 68205700 Status: doing well, stable Status Narrative Discussed with Dr. Mcgill. Assessment/Plan utox unremarkable elevated serum ETOH APCT reviewed adv to low fiber diet today pain mgmt IV abx >> transition to PO after dc for 10-14 days repeat imaging studies prn H2B pt will require colonoscopy x 2 months after discharge date fu labs Subjective Subjective abdominal pain resolved feels better Objective Last 24 Hour Vital Signs Date Time Temp Pulse Resp B/P Pulse Ox O2 Delivery O2 Flow Rate FiO2 12/27/16 12:00 97.0 70 20 118/61 97 Room Air 12/27/16 09:27 63 16 99 Room Air 12/27/16 09:26 63 18 98 Room Air 12/27/16 08:19 125/77 12/27/16 08:00 97.3 72 20 125/77 98 Room Air 2.0 12/27/16 08:00 77 12/27/16 07:20 64 18 100 Nasal Cannula 2.0 12/27/16 07:19 Nasal Cannula 2.0 12/27/16 07:18 63 18 100 Nasal Cannula 2.0 12/27/16 07:18 100 Nasal Cannula 2.0 12/27/16 06:58 97.6 12/27/16 04:00 66 12/27/16 04:00 97.6 69 16 131/89 98 Nasal Cannula 2.0 12/27/16 01:21 98 18 99 Nasal Cannula 2.0 12/27/16 01:10 89 18 97 Room Air 12/27/16 00:19 97.9 102 14 140/109 98 Nasal Cannula 2.0 12/27/16 00:00 75 12/26/16 20:00 95.5 101 18 121/74 95 Nasal Cannula 2.0 12/26/16 20:00 102 12/26/16 19:04 98 18 99 Nasal Cannula 2.0 12/26/16 18:55 92 18 98 Nasal Cannula 2.0 28 12/26/16 18:53 98 Nasal Cannula 2.0 28 12/26/16 18:53 Nasal Cannula 2.0 28 12/26/16 16:00 122 12/26/16 16:00 97.8 95 20 105/65 99 Nasal Cannula 3.0 12/26/16 13:31 66 16 100 Nasal Cannula 3.0 32 12/26/16 13:26 64 16 99 Nasal Cannula 3.0 32 Intake and Output 12/26/16 12/27/16 19:00 07:00 Intake Total 1600 ml 225 ml Output Total 1800 ml 775 ml Balance -200 ml -550 ml Intake Oral 1100 ml IV Total 500 ml 225 ml Output Urine Total 1800 ml 775 ml Laboratory Tests Test 12/27/16 03:00 White Blood Count 19.6 K/UL (4.8-10.8) H Red Blood Count 4.08 M/UL (4.70-6.10) L Hemoglobin 12.8 G/DL (14.2-18.0) L Hematocrit 38.5 % (42.0-52.0) L Mean Corpuscular Volume 94 FL (80-99) Mean Corpuscular Hemoglobin 31.4 PG (27.0-31.0) H Mean Corpuscular Hemoglobin Concent 33.3 G/DL (32.0-36.0) Red Cell Distribution Width 12.5 % (11.6-14.8) Platelet Count 114 K/UL (150-450) L Mean Platelet Volume 9.0 FL (6.5-10.1) Neutrophils (%) (Auto) % (45.0-75.0) Lymphocytes (%) (Auto) % (20.0-45.0) Monocytes (%) (Auto) % (1.0-10.0) Eosinophils (%) (Auto) % (0.0-3.0) Basophils (%) (Auto) % (0.0-2.0) Differential Total Cells Counted 100 Neutrophils % (Manual) 80 % (45-75) H Lymphocytes % (Manual) 13 % (20-45) L Monocytes % (Manual) 6 % (1-10) Eosinophils % (Manual) 1 % (0-3) Basophils % (Manual) 0 % (0-2) Band Neutrophils 0 % (0-8) Platelet Estimate Decreased L Platelet Morphology Normal Hypochromasia 1+ Sodium Level 141 mEQ/L (135-145) Potassium Level 3.3 mEQ/L (3.4-4.9) L Chloride Level 99 mEQ/L (98-107) Carbon Dioxide Level 27 mEQ/L (20-30) Anion Gap 15 (5-15) Blood Urea Nitrogen 9 mg/dL (7-23) Creatinine 0.9 mg/dL (0.7-1.2) Estimat Glomerular Filtration Rate > 60 mL/min (>60) Glucose Level 88 mg/dL (74-106) Calcium Level 9.1 mg/dL (8.6-10.2) Height (Feet): 5 Height (Inches): 5.00 Weight (Pounds): 186 General Appearance: no apparent distress, alert Cardiovascular: normal rate Respiratory/Chest: normal breath sounds, no respiratory distress Abdominal Exam: normal bowel sounds, non tender, soft Extremities: normal range of motion Geetha Mackey N.P. Dec 27, 2016 13:32
[2016-12-27] MEDS ORDERED: metroNIDAZOLE 500mg tab ORAL SCH (14:00)
[2016-12-27] MEDS ORDERED: ADVAIR 250-501 EACH INH (14:36)
[2016-12-27] MEDS ORDERED: ALBUTEROL2.5 MG/3 M INH (14:37)
[2016-12-27] MEDS ORDERED: LISINOPRIL10 MG ORAL (14:37)
[2016-12-27] MEDS ORDERED: LEVAQUIN500 MG ORAL (14:38)
[2016-12-27] MEDS ORDERED: METRONIDAZOLE250 MG ORAL (14:39)
[2016-12-27] MEDS ORDERED: VITAMIN B-1100 MG ORAL (14:41)
[2016-12-27] MEDS ORDERED: [UNRECOGNIZED DRUG - OTHER] MC (14:41)
[2016-12-27] MEDS ORDERED: HYTRIN5 MG PO (14:42)
[2016-12-27] MEDS ORDERED: FOLIC ACID1 M1 PO (14:42)
--- NOTE | 2016-12-27 14:42 | Discharge Summary ---
Discharge Summary Hospital Course Date of Admission Dec 23, 2016 at 02:20 Date of Discharge Dec 27, 2016 Admitting Diagnosis respiratory distress, copd exacerbation Reason for Hospitalization: as above HPI Yoel Guillory is a 56 year old male who was admitted on Dec 23, 2016 at 02:20 for Respiratory Distress/Chronic Obstructive Pulmonary Consultations ID GI surgery Pulmonary Cardiology Procedures None Hospital Course 56 y?o man admitted with shortness of breath and hypoxia, initially diagnosed with both acute on chronic diastolic chf and asthma exacerbation requiring oxygen, seen by cardiology and pulm, was placed on steroids, nebs, advair, IV abx and was also diuresed gently, echo showed diastolic dysfunction with preserved EF. Pt shortness of breath improved and eventually was taken off oxygen and resp status returned to baseline. He also c/o abd pain, n/v and diarrhea and with leukocytosis, CT A/P done which showed diverticulitis along with adhered bowel, seen by GI/surgery, no intervention was recommended, IV abx were modified to treat diverticulitis. Pt improved greatly, abd resolved, tolerating PO and was dced home on levaquin/ flagyl for 7 more days. His leukocytosis persisted but diff was neg for bands, attributed to steroids, and dced home with advair/alb inhaler, medrol dosepak. Pt also on CT scan had a 4cm solid renal mass, seen by Urology, started on terazosin, and rec outpt f/u with urologist Discharge Condition Upon Discharge: stable Discharge Disposition Patient was discharged to home Discharge Diagnoses: (1) Renal mass (2) Acute respiratory failure with hypoxia and hypercapnia (3) Acute on chronic diastolic (congestive) heart failure (4) Hypokalemia (5) Sepsis (6) Diverticulitis MANUELITO B[place]MINGHAM Dec 27, 2016 14:42
[2016-12-27 16:00] VITALS: BP 134/74
--- NOTE | 2016-12-27 16:10 | General Progress Note ---
Assessment/Plan Assessment/Plan 1. Renal mass was noted on CAT scan that is approximately 4 cm in size, with benign simple cyst as well, well attenuated. We will recommend to evaluate Bosniak score, seek urology consult and may require surveillance. Recommend either rescanning the mass in 6 to 12 months versus surgical excision. Please consult Urology. ---> recommends excision of mass at some point, monitor for now ---> resume terazosin 2. Leukocytosis which is very mild. ---> down trending ---> will be transitioned to PO abx after discharge 3. Respiratory distress with shortness of breath. 4. Intermittent abdominal pain. 5. Acute diverticulitis microperforation. 6. Hyperglycemia. 7. Discussed with staff. 8. I greatly appreciate consultation. Subjective Constitutional: Reports: no symptoms HEENT: Reports: no symptoms Cardiovascular: Reports: no symptoms Respiratory: Reports: no symptoms Gastrointestinal/Abdominal: Reports: no symptoms Genitourinary: Reports: no symptoms Neurologic/Psychiatric: Reports: no symptoms Endocrine: Reports: no symptoms Hematologic/Lymphatic: Reports: no symptoms Allergies: Coded Allergies: No Known Allergies (Unverified , 12/22/16) Subjective feels better, no complaints of pain, clear to be dc Objective Last 24 Hour Vital Signs Date Time Temp Pulse Resp B/P Pulse Ox O2 Delivery O2 Flow Rate FiO2 12/27/16 13:24 67 16 99 Room Air 28 12/27/16 13:23 65 18 97 Room Air 12/27/16 12:00 97.0 70 20 118/61 97 Room Air 12/27/16 12:00 69 12/27/16 09:27 63 16 99 Room Air 28 12/27/16 09:26 63 18 98 Room Air 12/27/16 08:19 125/77 12/27/16 08:00 97.3 72 20 125/77 98 Room Air 2.0 12/27/16 08:00 77 12/27/16 07:20 64 18 100 Nasal Cannula 2.0 12/27/16 07:19 Nasal Cannula 2.0 28 12/27/16 07:18 63 18 100 Nasal Cannula 2.0 28 12/27/16 07:18 100 Nasal Cannula 2.0 28 12/27/16 06:58 97.6 12/27/16 04:00 66 12/27/16 04:00 97.6 69 16 131/89 98 Nasal Cannula 2.0 12/27/16 01:21 98 18 99 Nasal Cannula 2.0 28 12/27/16 01:10 89 18 97 Room Air 12/27/16 00:19 97.9 102 14 140/109 98 Nasal Cannula 2.0 12/27/16 00:00 75 12/26/16 20:00 95.5 101 18 121/74 95 Nasal Cannula 2.0 12/26/16 20:00 102 12/26/16 19:04 98 18 99 Nasal Cannula 2.0 28 12/26/16 18:55 92 18 98 Nasal Cannula 2.0 28 12/26/16 18:53 98 Nasal Cannula 2.0 28 12/26/16 18:53 Nasal Cannula 2.0 28 Intake and Output 12/26/16 12/27/16 19:00 07:00 Intake Total 1600 ml 225 ml Output Total 1800 ml 775 ml Balance -200 ml -550 ml Intake Oral 1100 ml IV Total 500 ml 225 ml Output Urine Total 1800 ml 775 ml Laboratory Tests 12/27/16 03:00: White Blood Count 19.6H, Red Blood Count 4.08L, Hemoglobin 12.8L, Hematocrit 38.5L, Mean Corpuscular Volume 94, Mean Corpuscular Hemoglobin 31.4H, Mean Corpuscular Hemoglobin Concent 33.3, Red Cell Distribution Width 12.5, Platelet Count 114L, Mean Platelet Volume 9.0, Neutrophils (%) (Auto) , Lymphocytes (%) ( Auto) , Monocytes (%) (Auto) , Eosinophils (%) (Auto) , Basophils (%) (Auto) , Differential Total Cells Counted 100, Neutrophils % (Manual) 80H, Lymphocytes % (Manual) 13L, Monocytes % (Manual) 6, Eosinophils % (Manual) 1, Basophils % ( Manual) 0, Band Neutrophils 0, Platelet Estimate DecreasedL, Platelet Morphology Normal, Hypochromasia 1+, Sodium Level 141, Potassium Level 3.3L, Chloride Level 99, Carbon Dioxide Level 27, Anion Gap 15, Blood Urea Nitrogen 9 , Creatinine 0.9, Estimat Glomerular Filtration Rate > 60, Glucose Level 88, Calcium Level 9.1 Height (Feet): 5 Height (Inches): 5.00 Weight (Pounds): 186 General Appearance: no apparent distress EENT: normal ENT inspection Neck: non-tender Cardiovascular: normal peripheral pulses Respiratory/Chest: chest wall non-tender Abdomen: normal bowel sounds Edema: no edema noted Pedal (L), no edema noted Pedal (R) 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
--- NOTE | 2016-12-27 19:00 | Cardiology Report ---
APPROVED REPORT EKG Measurement Heart [id number] Normal sinus rhythm with sinus arrhythmia Prolonged QT Abnormal ECG
--- NOTE | 2016-12-28 08:24 | Cardiology Report ---
APPROVED REPORT EKG Measurement Heart [id number] Sinus tachycardia Otherwise normal ECG
--- NOTE | 2016-12-28 11:46 | Cardiology Report ---
APPROVED REPORT EXAM: Two-dimensional and M-mode echocardiogram with Doppler and color Doppler. INDICATION Congestive Heart Failure M-Mode DIMENSIONS IVSd1.4 (0.7-1.1cm)Left Atrium (MM)4.2 (1.6-4.0cm) LVDd4.6 (3.5-5.6cm)Aortic Root2.3 (2.0-3.7cm) PWd0.9 (0.7-1.1cm)Aortic Cusp Exc.2.3 (1.5-2.0cm) LVDs3.1 (2.5-4.0cm) PWs1.6 cm Normal left ventricular chamber size, systolic function and wall motion. Left ventricular ejection fraction estimated to be 50-55 %. Mild left ventricular hypertrophy. Anterior Echo-free space, may be due to pericardial fat or effusion. Mild right atrial enlargement. Mild right ventricular enlargement. Left atrial chamber sizes are within normal limits. Mild focal aortic valve sclerosis with adequate cusp excursion. Mildly thickened mitral valve leaflets with normal excursion. Mild mitral annulus and aortic root calcification. Normal pulmonic valve structure. Normal tricuspid valve structure. IVC is normal in size with physiologic collapse. A color flow and spectral Doppler study was performed and revealed: Trace aortic regurgitation. Trace mitral regurgitation. Mitral diastolic velocities suggest reduced left ventricular relaxation (Grade I). Trace tricuspid regurgitation. Tricuspid systolic velocities suggests peak right ventricular systolic pressure of 8 mmHg. Trace pulmonic regurgitation present.
== END 2016-12-27 17:25 | disposition home or self-care (01) | DRG 720 ==
LOC: EDBD 23:32 → EMR 23:40 → 2W 12-23 02:20 → EDBEDREQ 12-23 03:13 → 2W 12-23 04:25
PROC: 5A09357 Assistance with Respiratory Ventilation, Less than 24 Consecutive Hours, Continuous Positive Airway Pressure (ICD-10-PCS; principal; 2016-12-23)
DX: A41.9 Sepsis, unspecified organism (principal); J96.01 Acute respiratory failure with hypoxia; I50.33 Acute on chronic diastolic (congestive) heart failure; J96.02 Acute respiratory failure with hypercapnia; J45.902 Unspecified asthma with status asthmaticus; M62.82 Rhabdomyolysis; K57.20 Diverticulitis of large intestine with perforation and abscess without bleeding; J44.1 Chronic obstructive pulmonary disease with (acute) exacerbation; F10.239 Alcohol dependence with withdrawal, unspecified; F10.229 Alcohol dependence with intoxication, unspecified; J96.21 Acute and chronic respiratory failure with hypoxia; N28.9 Disorder of kidney and ureter, unspecified; E87.6 Hypokalemia; I10 Essential (primary) hypertension; N28.1 Cyst of kidney, acquired; J40 Bronchitis, not specified as acute or chronic
CPT/HCPCS: 36415; 71010; 74177; 80048; 80053; 80300; 80329; 81003; 82248; 82550; 82553; 83690; 83735; 83880; 84439; 84443; 84484; 85007; 85025; 85610; 85730; 87040; 87045; 87324; 93005; 93306; 94640; 94660; 94664; 94760; J2405; J7620; J8499